=== PATIENT | male | born 1930 | race Caucasian/White ===

== ENCOUNTER 2018-01-27 16:20 | Inpatient (IN) | payer OTHER ==
--- NOTE | 2018-01-27 16:35 | EDPHY ---
H & P Stated Complaint: r leg swelling/amputated toe/now wih ?cellulitis/fever Time Seen by Provider: 01/27/18 16:35 HPI/ROS: CHIEF COMPLAINT: Fever, generalized weakness HISTORY OF PRESENT ILLNESS: The patient presents to the ED with a 2 day history of fever and generalized weakness. The patient is approximately 2 weeks status post right 5th toe resection. The patient reportedly been on oral antibiotics up until a week ago. The patient denies any cough, abdominal pain or dysuria. The patient reports that he has had some chronic erythema surrounding his surgical site however does not note increasing erythema over the past day. The patient denies any recent medication changes. The patient does report allergies to amoxicillin and Keflex. REVIEW OF SYSTEMS: A comprehensive 10 point review of systems is otherwise negative aside from elements mentioned in the history of present illness. Source: Patient - Personal History Current Tetanus Diphtheria and Acellular Pertussis (TDAP): Yes - Medical/Surgical History Hx Asthma: No Hx Chronic Respiratory Disease: No Hx Diabetes: No Hx Cardiac Disease: No Hx Renal Disease: No Hx Cirrhosis: No Hx Alcoholism: No Hx HIV/AIDS: No Hx Splenectomy or Spleen Trauma: No Other PMH: r 5th toe amputation - Social History Smoking Status: Former smoker - Physical Exam Exam: General Appearance: Alert, no distress Eyes: Pupils equal and round no pallor or injection ENT, Mouth: Mucous membranes moist Respiratory: There are no retractions, lungs are clear to auscultation Cardiovascular: Regular rate and rhythm Gastrointestinal: Abdomen is soft and nontender, no masses, bowel sounds normal Neurological: A&O, normal motor function, normal sensory exam, normal cranial nerves Skin: Warm and dry, no rashes Musculoskeletal: Neck is supple nontender Extremities: Wound VAC to right lower extremity, mild surrounding erythema, no fluctuance appreciated Psychiatric: Patient is oriented X 3, there is no agitation Constitutional: Initial Vital Signs Temperature (C) 39 C H 01/27/18 16:23 Heart Rate 104 H 01/27/18 16:23 Respiratory Rate 18 01/27/18 16:23 Blood Pressure 127/63 H 01/27/18 16:23 O2 Sat (%) 91 L 01/27/18 16:23 O2 Delivery Mode Room Air Allergies/Adverse Reactions: amoxicillin Allergy (Verified 01/27/18 17:35) Other-Enter Comments cephalexin Allergy (Verified 01/27/18 17:35) Rash Home Medications: Medication Instructions Recorded Chlorthalidone [Chlorthalidone 25 25 mg PO DAILY 01/27/18 mg (*)] Simvastatin 20 mg PO DAILY 01/27/18 Medical Decision Making - Diagnostics Imaging Results: Imaging Impressions Chest X-Ray 01/27/18 16:59 Impression: 1. Suspicious for a mediastinal mass. Recommend chest CT. 2. No pneumonia. ED Course/Re-evaluation: The patient presents to the ED with a fever to 39 degrees. The patient's surgical wound was evaluated by his surgeon Dr. Alanis who feels it is stable and improving as expected. The patient does not have septic physiology. The patient does have a slight leukocytosis with a left shift. The patient's initial lactic acid is reassuring. Blood cultures x2 have been obtained. The patient will be admitted to the hospital and started on vancomycin. The patient will be admitted to the hospitalist service by Dr. Rangel. Chest x- ray and urinalysis currently pending. The patient is noted to have a slightly elevated creatinine of 1.9 from his baseline of 1.5. Patient did have an abnormality noted on his chest x-ray. Given his elevated creatinine a noncontrast CT scan was obtained which demonstrates a ascending aortic aneurysm. The patient has no complaints of chest pain. Further workup of this condition will be deferred to the admitting service. Differential Diagnosis: Differential diagnosis considered includes bacteremia, sepsis, urinary tract infection, pneumonia, drug reaction - Data Points Laboratory Results: Laboratory Results 01/27/18 16:40 01/27/18 16:40 01/27/18 01/27/18 01/27/18 16:40 16:40 16:40 WBC 10.61 10^3/uL H 10^3/uL (3.80-9.50) RBC 3.52 10^6/uL L 10^6/uL (4.40-6.38) Hgb 11.6 g/dL L g/dL (13.7-17.5) Hct 34.9 % L % (40.0-51.0) MCV 99.1 fL fL (81.5-99.8) MCH 33.0 pg pg (27.9-34.1) MCHC 33.2 g/dL g/dL (32.4-36.7) RDW 13.6 % % (11.5-15.2) Plt Count 352 10^3/uL 10^3/uL (150-400) MPV 8.7 fL fL (8.7-11.7) Neut % (Auto) 81.6 % H % (39.3-74.2) Lymph % (Auto) 5.7 % L % (15.0-45.0) [place] % (Auto) 12.1 % % (4.5-13.0) Eos % (Auto) 0.0 % L % (0.6-7.6) Baso % (Auto) 0.3 % % (0.3-1.7) Nucleat RBC Rel Count 0.0 % % (0.0-0.2) Absolute Neuts (auto) 8.66 10^3/uL H 10^3/uL (1.70-6.50) Absolute Lymphs (auto) 0.61 10^3/uL L 10^3/uL (1.00-3.00) Absolute Monos (auto) 1.28 10^3/uL H 10^3/uL (0.30-0.80) Absolute Eos (auto) 0.00 10^3/uL L 10^3/uL (0.03-0.40) Absolute Basos (auto) 0.03 10^3/uL 10^3/uL (0.02-0.10) Absolute Nucleated RBC 0.00 10^3/uL 10^3/uL (0-0.01) Immature Gran % 0.3 % % (0.0-1.1) Immature Gran # 0.03 10^3/uL 10^3/uL (0.00-0.10) VBG Lactic Acid 1.4 mmol/L mmol/L (0.7-2.1) Sodium 129 mEq/L L mEq/L (135-145) Potassium 3.5 mEq/L mEq/L (3.3-5.0) Chloride 94 mEq/L L mEq/L (97-110) Carbon Dioxide 26 mEq/l mEq/l (22-31) Anion Gap 9 mEq/L mEq/L (8-16) BUN 33 mg/dL H mg/dL (7-23) Creatinine 1.9 mg/dL H mg/dL (0.7-1.3) Estimated GFR 34 Glucose 107 mg/dL H mg/dL (70-100) Calcium 8.4 mg/dL L mg/dL (8.5-10.4) Medications Given: Vancomycin/Sodium Chloride (Vancomycin 1 Gm (Premix)) 250 mls @ 250 mls/hr IV EDNOW ONE PRN Reason: Protocol Stop: 01/27/18 18:06 Last Admin: 01/27/18 17:30 Dose: 250 mls Departure - Departure Disposition: [facility] Inpatient Acute Clinical Impression: Febrile illness, acute, Cellulitis of right foot Condition: Good
[2018-01-27 16:50] LABS: PLATELET COUNT 352 10^3/uL (150-400)
[2018-01-27] MEDS ORDERED: VANCOMYCIN HCL/NORMAL SALINE 250 ML IV ONE (17:07)
[2018-01-27] MEDS ORDERED: ONDANSETRON 4 MG/2 ML VIAL IVP PRN (18:20)
[2018-01-27] MEDS ORDERED: ONDANSETRON DISINTEGRATING 4 MG TAB PO PRN (18:20)
[2018-01-27] MEDS: ACETAMINOPHEN 325 MG TAB PO PRN (19:52)
[2018-01-27] MEDS: NS 1,000 ML IV SCH (19:52)
[2018-01-27] MEDS ORDERED: levOFLOXACIN 500 MG/DEXTROSE 100 ML IV ONE (20:44)
--- NOTE | 2018-01-27 23:57 | GHP ---
[f rep st] HISTORY AND PHYSICAL DATE OF ADMISSION: 01/27/2018 CHIEF COMPLAINT: Fevers. HISTORY OF PRESENT ILLNESS: The patient is a pleasant 87-year-old gentleman with a past medical hist ory of hypertension, hyperlipidemia, who was recently in the hospital after having a right 5th toe am putation. He had completed antibiotics approximately 1 week ago after his amputation, and over the p ast few days started noticing fevers. He denies any other physical complaints such as productive cou gh. No abdominal complaints. No diarrhea. In the emergency room, it was noted that he had a temper ature of 39.0 degrees Celsius. He is being admitted for further evaluation and monitoring. Blood cu ltures were obtained in the emergency room. Patient received vancomycin. I reviewed the case after his urinalysis came back as well with Dr. Villavicencio, and we added Levaquin at that time as there was 10-1 5 WBC seen, although the patient denies any complaints of dysuria or malodorous urine. PAST MEDICAL HISTORY: 1. Hypertension. 2. Hyperlipidemia. PAST SURGICAL HISTORY: Recent right 5th toe amputation. MEDICATIONS: 1. Chlorthalidone. 2. Simvastatin. ALLERGIES: 1. Amoxicillin, which causes a rash. 2. Cephalexin, which also causes a rash. FAMILY HISTORY: Mother and Father are both . Patient is uncertain as to the cause of their . SOCIAL HISTORY: Patient is currently and has children. He is a nonsmoker. He smoked in the past but quit many years ago. REVIEW OF SYSTEMS: CONSTITUTIONAL: Positive for subjective fevers. ENT: No recent upper respirato ry illnesses. CARDIOVASCULAR: No complaints of chest pains, palpitations, or syncopal episodes. RE SPIRATORY: No complaints of shortness of breath or productive cough. GI: No focal abdominal pains, nausea, vomiting, diarrhea, or constipation. : No reports of any difficulty with urination. No burning with urination or malodorous urine. NEUROLOGIC: No complaints of any headaches or focal wea kness. HEMATOLOGIC: No history of any deep vein thrombosis or pulmonary embolism. PSYCHIATRIC: No history of anxiety or depression. ENDOCRINE: No heat intolerance or polyuria. SKIN: No new skin rashes but has had chronic lower extremity wounds managed in the wound care clinic. MUSCULOSKELETAL: No focal joint pains or swelling. PHYSICAL EXAM: VITAL SIGNS: Temperature 39.0, blood pressure 127/63, heart rate 104, respirations 1 8, satting 91% on room air. GENERAL: Patient appears comfortable, resting comfortably, arousable, c onversant, no acute distress. HEENT: Extraocular movements intact. No scleral icterus is noted. N MAT: Supple. No thyroid enlargement appreciated. CHEST: Clear on auscultation. No crackles or wh eezing. HEART: Regular. No murmurs noted. ABDOMEN: Soft, nontender, nondistended. No suprapubic tenderness appreciated. : No Pate catheter in place. EXTREMITIES: Wound VAC in place on right foot. There are superficial abrasions on the left lateral ankle, which do not appear acutely infect ed. In the right foot, it is mildly edematous and erythematous and warm to touch on the dorsal aspec t of the foot. NEUROLOGIC: Cranial nerves 2 through 12 appear grossly intact with 5/5 strength in e xtremities. LABS: White blood cell count 10, hemoglobin 11, platelets 352. Sodium 129, potassium 3.5, chloride 94, bicarb 26, BUN 33, creatinine 1.9, glucose of 107. Lactic acid 1.4. UA shows negative nitrite, negative leukocyte esterase, 10-[address] did not show any acute infectious process. There is a 5.3 cm ascending aortic aneurysm noted. ASSESSMENT AND PLAN: 1. Fever: Clinically suspect the source of the fever is likely related to soft-tissue skin infectio n related to the right lower extremity. His right foot is warm to touch, mildly erythematous, and sw ollen as well. The patient has been given a dose of vancomycin in the emergency room, which I have c ontinued as well. We did add Levaquin. Infectious Disease consultation has also been recommended fo r a second opinion on antibiotic selection as well as any additional recommendations on further anisa p. Otherwise, await blood cultures, which were taken in the emergency room. 2. Acute kidney injury: Suspect hypovolemia related in the setting of the fevers. Normal saline cooper s been started. I recommend holding his chlorthalidone at this time as well. His most recent creati nine was 1.3, just 10 days ago here in the hospital. 3. Hyponatremia: Likely hypovolemia related as well as related to chlorthalidone. Perhaps consider ing other antihypertensives may be reasonable if necessary to minimize the risk of electrolyte abnorm alities. 4. Aneurysm: On CT imaging, the patient was found to have an ascending aortic aneurysm measured at 5.3 cm. This was a new finding for the patient. He had no knowledge of this being present. We disc ussed that this would need ongoing followup and recommendations. I think this can be done either as an outpatient or inpatient as I would not expect any immediate intervention in light of concurrent in fectious process. 5. Hypertension: Will hold chlorthalidone for now. 6. Hyperlipidemia: Will continue simvastatin. 7. Deep venous thrombosis prophylaxis: Lovenox. 8. Disposition: I will admit inpatient under observation setting for now pending further evaluation . /[id number]/MODL
[2018-01-28 05:29] LABS: PLATELET COUNT 298 10^3/uL (150-400)
[2018-01-28] MEDS: ATORVASTATIN CALCIUM 10 MG TAB PO SCH (08:31)
[2018-01-28] MEDS ORDERED: ENOXAPARIN 40 MG/0.4 ML SYR SC SCH (09:00)
[2018-01-28] MEDS ORDERED: levOFLOXACIN 250 MG/DEXTROSE 50 ML IV SCH (09:00)
--- NOTE | 2018-01-28 09:50 | ASMTCASEMG ---
Living Arrangements What is your living Answers: With Spouse arrangement? Who do you live with? Type Of Residence What kind of residence do Answers: House you live in? Discharge Plan Comments Coordination Status Comments Notes: Pt is a 87 y/o man admitted for febrile illness and presumed bacteremia. Pt recently had a right 5th toe amputation. ID and wound care is consulting. PT has been ordered and awaiting recommendations. Needs are TBD at this time. CM to follow. Plan: TBD Date Signed: 01/28/2018 09:49 AM Electronically Signed By:MAYRA Arias
[2018-01-28] MEDS: NS 1,000 ML IV SCH (10:37)
[2018-01-28] MEDS ORDERED: PENICILLIN POTASSIUM IV SCH (14:00)
[2018-01-28] MEDS ORDERED: D5W IV SCH (14:00)
--- NOTE | 2018-01-28 14:11 | GCON ---
[f rep st] CONSULTATION DATE OF CONSULTATION: 01/28/2018 CHIEF COMPLAINT: Fevers. HISTORY OF PRESENT ILLNESS: This is an 87-year-old male, well known to me from the wound care clinic . Briefly, he presented with a foul-smelling right lower extremity wound on the 5th metatarsal. He was subsequently taken to the operating room on the where I removed the right 5th toe as well as a significant portion of the right 5th metatarsal. Since that time I have seen him in the wound car e clinic once. The wound was healing appropriately, had decent granulation tissue, and the patient w as doing well. He was subsequently seen in the wound care clinic yesterday and evaluated by my partn er. The wound was warm. The patient was doing well. Some labs were sent as a general precautionary measure. In the interim, the patient developed fairly high fevers and was subsequently deferred to the emergency department. In the emergency department, it was found that he had positive blood cultu res. His white blood cell count was minimally elevated at 10, and the decision was made to admit the patient for IV antibiotics. On my examination of the patient today, he denies having any pain. He states that he feels better now that the fevers have abated. He wonders how long he will be in the ospital as he has "work to do." PAST MEDICAL HISTORY: Hypertension and hyperlipidemia. PAST SURGICAL HISTORY: Recent right 5th toe amputation. CURRENT MEDICATIONS: Include chlorthalidone and simvastatin. ALLERGIES: To amoxicillin and cephalexin. FAMILY HISTORY: Noncontributory. SOCIAL HISTORY: He continues to work. He is a previous smoker. Denies illicit drug use. PHYSICAL EXAMINATION: VITAL SIGNS: Temperature 36.6, blood pressure 105/65, heart rate 64, and he i s 96% on room air. CONSTITUTIONAL: He is in no apparent distress and appears comfortable. HEENT: Eyes: His pupils are equal, round, and reactive to light and accommodation. His extraocular movemen ts are intact. Ears, nose, mouth, throat: He has moist mucous membranes. His hearing is normal. H e has normal dentition. CARDIOVASCULAR: He has a regular rate and rhythm without any murmurs. RESP IRATORY: He has no respiratory distress, rales or rhonchi, and he is otherwise clear to auscultation . GI: His abdomen is soft, nondistended, nontender. SKIN: Warm. His right 5th toe is erythematou s and warm. It is nontender to palpation. He has palpable DP and PT pulses. The wound VAC is in pl o[place]. MUSCULOSKELETAL: Full strength. No tenderness. Normal joint range of motion. NEUROLOGIC: H e is alert and oriented x3. His cranial nerves 2-12 are intact. No weakness. No numbness. PSYCH: He is interacting appropriately. He is not anxious or encephalopathic. LYMPHATIC/HEMATOLOGIC/IMMUN OLOGIC: He has no cervical groin or supraclavicular lymphadenopathy appreciated. LABS: His white blood cell count has come down from 10.6 to 6.7. His H and H are stable at 11 and 3 5. His platelets are normal at 298. He does have positive blood cultures growing group A strep. Th is is consistent with the cultures taken intraoperatively. ASSESSMENT/PLAN: 87-year-old male with bacteremia likely secondary to a right foot wound. The patie nt has been started on intravenous antibiotics, and they appear to be working as his fevers have abat ed and his foot appears better than it did yesterday. I feel that given his positive margin as well as his bacteremia, he requires take back to the operating room for revision. I discussed this with t erika patient today. Although he is somewhat disheartened to learn that he has to go back to the operat ing room, he understands that in order to get source control, this is appropriate. In the meantime, he will continue intravenous antibiotics for a minimum of 2 weeks. Will plan to take him back within the next day or so for revision amputation. /[id number]/MODL
--- NOTE | 2018-01-28 14:42 | GCON ---
[f rep st] CONSULTATION DATE OF CONSULTATION: 01/28/2018 REFERRING PHYSICIAN: Emile Lim MD REASON FOR CONSULTATION: Bacteremia. HPI: An 87-year-old active male whose problems date back to August of 2017, when he had some special [place] shoes made at a neuropathy clinic in [place]. He wore the shoes without socks on and his left and right foot got rubbed. The right foot wound became chronic. Patient was initially seen by Dr. Bruce, but subsequently was evaluated by [facility] on 01/06/2018. The patient was noted to have exposed bone consistent with clinical osteomyelitis. The patient was subsequently taken to the operating room 01/17/2018, and underwent a right 5th toe and partial metatarsal resection. The patient did receive antibiotics for a short period postoperatively, but he completed the antibiotics last week, unknown type. The patient was doing well until January 26 when he felt increasing malaise and slept all afternoon. [facility] and subsequently developed a T to 103. He subsequently presented to the emergency room and was found to have right lower extremity cellulitis. One of 2 positive blood cultures for group A strep and a mild leukocytosis. Patient was started on levofloxacin and vancomycin and today feels some clinical improvement. He has no pain in his lower extremities due to chronic lower extremity neuropathy. PAST MEDICAL AND SURGICAL HISTORY: High BP, neuropathy, hyperlipidemia and transmetatarsal resection as above. CURRENT MEDICATIONS: Tylenol, [place], Lipitor 10 mg p.o. at bedtime, Lovenox, morphine. He received levofloxacin 750 mg x1 and vancomycin IV. ALLERGIES: The patient has nausea and vomiting to Augmentin, and Keflex he developed a rash of his lower extremities, query vasculitis. SOCIAL HISTORY: Patient is . He continues to actively work. He previously is from [place]. 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 His son lives here in town. Remote tobacco. Last international travel was last year to [facility]. FAMILY HISTORY: Reviewed and noncontributory. PHYSICAL EXAM: VITAL SIGNS: T-max is 39, T current 36.7, BP 105/65, HR 67, RR 16, saturation 96% on room air. GENERAL: This is a pleasant male sitting up in bed. No acute distress HEENT: Moist mucous membranes. No oral ulcerations or exudate. NECK: Supple. CARDIOVASCULAR: Regular rate and rhythm. No murmurs. CHEST: Clear to auscultation bilaterally. ABDOMEN: Soft, nontender. Bowel sounds are present. EXTREMITIES: His right lower extremity revealed a wound VAC in place lateral foot with erythema and swelling on the dorsum of his foot extending to the mid calf. He also had mild warmth. His pulses were 2+ bilaterally. His range of motion of his ankle was intact. NEUROLOGICAL: He was alert and oriented x4. Moving all 4 extremities equally. LABORATORY: White count on admission was 10.6 and today was 6.7, hematocrit 34 , platelets of 298, 64% neutrophils, 12% lymphocytes. Sodium 129 and today 138 , creatinine 1.7. Blood cultures collected 01/27 07/02 group A strep. Foot tissue from 01/17 grew MSSA, group A strep, Enterobacter, Klebsiella, group A strep and Proteus. Bone biopsy from the operating room 01/17/2018, showed 2 samples with viable margins and 1 margin described as the proximal 5th metatarsal with osteomyelitis extending to an unoriented margin. ASSESSMENT AND PLAN: This is an 87-year-old male with chronic right foot osteomyelitis, who underwent resection of his 5th metatarsal 1 week ago, who subsequently developed fever and chills and cellulitis of his right lower extremity and subsequently was found to have bacteremia with group A strep. 1. Group a strep bacteremia. No peripheral stigmata of endocarditis including no murmur. Would only consider echocardiogram if persistent bacteremia. Suspect source right foot wound s/p 5th partial metatarsal amputation 2. Right lower extremity cellulitis and right 5th osteomyelitis 3. Renal insufficiency Recommendations 1. Discussed with patient his reaction to Augmentin is a side effect and not allergy, and patient expressed a willingness to try IV penicillin. Discussed duration of therapy, at least 2 weeks, depending on operative findings. 2. Discussed the risks and benefits of PICC line placement. Will place after blood cultures cleared 48 hr. Repeat blood cultures tomorrow Thank you. We will continue to see this patient on a daily basis. /[id number]/MODL MTDD
[2018-01-28] MEDS: PENICILLIN POTASSIUM IV SCH ×2 (15:45→20:24)
[2018-01-28] MEDS: D5W IV SCH ×2 (15:45→20:24)
--- NOTE | 2018-01-28 15:56 | CPEKG ---
Heart Rate: 70 RR Interval: 857 P-R Interval: 200 QRSD Interval: 82 QT Interval: 365 QTC Interval: 394 P [place]ron[place]: -18 QRS [place]: 61 T Wave [place]: -31 EKG Severity - ABNORMAL ECG - EKG Impression: SINUS RHYTHM Electronically Signed By: Amarilys Saez 28-Jan-2018 16:31:29
--- NOTE | 2018-01-28 17:00 | HOSPPROG ---
Hospitalist Progress Note Assessment/Plan: Assessment: 87-year-old male presents with group a strep bacteremia secondary to right ft wound and cellulitis Plan: 1. Group A strep bacteremia. Present on admission, right lower extremity wound is the source -appreciate Infectious Disease consultation by Dr. Darling, she has recommended IV penicillin for 2 weeks beyond blood culture clearance -will repeat blood cultures postoperatively and place PICC line once his demonstrate clearance 2. Cellulitis. Present on admission, new problem this provider, further workup indicated. right lower extremity, around right lower extremity wound which is secondary to neuropathy and likely pressure injury -status post vancomycin levofloxacin in the emergency department, continue on single agent penicillin given the likely causative agent is group a strep -discussed with Dr. Alanis, he suspects the patient has underlying bony involvement and he recommends exploratory surgery, patient will be NPO after midnight -x-ray the area demonstrates no soft tissue gas 3. Pressure injury. Present on admission, right lower extremity, nonhealing in the outpatient setting, currently has a wound VAC at but continues to have adjacent cellulitis, now bacteremia, potentially osteomyelitis underneath -surgical exploration by Dr. Alanis tomorrow -ongoing wound care 4. Neuropathy. Chronic, likely cause of above 5. Hypertension. Chronic, hold chlorthalidone given acute kidney injury 6. Acute kidney injury on chronic kidney disease stage 3. Reviewed outside records from 01/17/18, demonstrating initial serum creatinine level 1.3, elevated on this presentation most likely secondary to hypovolemia in the setting of infection -continue IV normal saline -repeat serum creatinine level in a.m. -monitor urine output 7. Acute hyponatremia. Presenting serum sodium level 129 most likely secondary to hypovolemia with concomitant acute kidney injury, continue normal saline and monitor 8. PVCs. Present on EKG, personally interpreted, with other supraventricular or non sinus complex -monitor on telemetry as the patient has no known history of AFib, and this may impact overall care 9. Abdominal aortic aneurysm. 5.3 cm on imaging, will require outpatient surveillance, not currently symptomatic Diet. Regular, NPO after midnight Prophylaxis. High risk patient, SCDs, hold pharmacologic given surgery tomorrow Code. Full Disposition. Anticipated discharge uncertain this time, upgraded to inpatient admission status reasonable medical necessity given that his anticipated length stay is greater than 48 hr for a new diagnosis of bacteremia with concomitant cellulitis, pressure injury, acute kidney injury, requiring surgical intervention. Subjective: Patient denies any pain in his foot Objective: Vital Signs Temp Pulse Resp BP Pulse Ox 36.7 C 62 16 108/70 97 01/28/18 16:00 01/28/18 16:00 01/28/18 16:00 01/28/18 16:00 01/28/18 16:00 - Physical Exam Constitutional: no apparent distress, appears nourished, not in pain, No uncomfortable Cardiovascular: regular rate and rhythym, no murmur, rub, or gallop, No edema Respiratory: no respiratory distress, no rales or rhonchi, clear to auscultation Gastrointestinal: normoactive bowel sounds, soft, non-tender abdomen, no palpable masses Skin: other (Blanchable erythema lateral aspect right lower extremity around his wound which has a VAC in place, healing small ulcerations on the posterior aspect of his right calf, posterior aspect left heel without any surrounding induration or fluctuance) Neurologic: AAOx3, No sensation intact bilaterally (Impaired in right lower extremity distally), No weakness (Motor strength 5/5 bilaterally) Psychiatric: interacting appropriately, not anxious, not encephalopathic, thought process linear ICD10 Worksheet Patient Problems: Problems Problem Status Onset Cellulitis of right foot Acute Febrile illness, acute Acute
[2018-01-28] MEDS ORDERED: VANCOMYCIN HCL/NORMAL SALINE 250 ML IV SCH (17:30)
[2018-01-29] MEDS: D5W IV SCH ×4 (02:04→21:03)
[2018-01-29] MEDS: PENICILLIN POTASSIUM IV SCH ×4 (02:04→21:03)
[2018-01-29 05:15] LABS: PLATELET COUNT 317 10^3/uL (150-400)
[2018-01-29] MEDS: ATORVASTATIN CALCIUM 10 MG TAB PO SCH (08:24)
--- NOTE | 2018-01-29 11:18 | PCMIDPN ---
Assessment/Plan: Assessment/Plan: * Group A strep bacteremia associated with right foot osteomyelitis status post amputation: Cellulitic changes have resolved over right lateral foot. Plans for revision of amputation based on positive bone margins later today. Planning 2 weeks of penicillin therapy by IV route provided all osteomyelitis is excised. Repeat blood cultures obtained this morning to assess for clearing of bacteremia. Plan PICC line once bacteremia documented as cleared. Patient is tolerating penicillin well to date. Clinical findings and plan of care discussed with patient. 01/29/18 13:18 01/29/18 13:20 Subjective: 87 y/o M, sitting in his chair reading, seen in follow-up for osteomyelitis of right foot with associated group A strep bacteremia. When asked how he is feeling he states, Im fine. Dr. Ocampo informed pt of his blood cultures positive for Group A Streptococcus and plan for 2 week course of IV penicillin abx. Denies associated itching, rash, or diarrhea. When asked about his allergy to Keflex he said he suddenly got a rash all over the lower half of his body. He was seen by Dr. Bruce at [facility] who referred him to a correction officer supervisor. Pt notes that the correction officer supervisor did not take cultures and dx him with vasculitis. Subsequently, he got sores on both lower legs. He still has two open wounds. One on his L foot is almost healed. Prior to surgery he notes that his right foot was erythematous and hot to touch which has now improved. I, Donna Mullen, am scribing for, and in the presence of, Dr. Lupillo Ocampo. I, Dr. Lupillo Ocampo, personally performed the services described in this documentation, as scribed by Donna Mullen in my presence, and it is both accurate and complete. Objective: Vital Signs Temp Pulse Resp BP Pulse Ox 36.5 C 68 23 H 103/66 94 01/29/18 08:37 01/29/18 08:37 01/29/18 08:37 01/29/18 08:37 01/29/18 08:37 Laboratory Results 01/29/18 05:00 01/29/18 05:00 01/28/18 01/29/18 01/30/18 05:59 05:59 05:59 Intake Total 0 Output Total 800 375 Balance -800 -375 penicillin 2million units IV q6 #1 Blood cultures 01/27/2018 1/2 sets group A Streptococcus - Physical Exam General Appearance: alert, no apparent distress EENT: No scleral icterus, No thrush Respiratory: lungs clear Cardiac/Chest: regular rate, rhythm, No systolic murmur Extremities: other (R lateral foot with extensive granulation tissue present without purulent discharge surrounding; erythema resolving. R index finger small healing wound with mild edema. No stigmata of endocarditis. ) Abdomen: non-tender, No distended ICD10 Worksheet Patient Problems: Problems Problem Status Onset Cellulitis of right foot Acute Febrile illness, acute Acute
[2018-01-29] MEDS: NS 1,000 ML IV SCH (16:18)
--- NOTE | 2018-01-29 16:29 | HOSPPROG ---
Hospitalist Progress Note Assessment/Plan: Assessment: 87-year-old male presents with group a strep bacteremia secondary to right ft wound and cellulitis Plan: 1. Group A strep bacteremia. Present on admission, right lower extremity wound is the source -appreciate Infectious Disease consultation by Dr. Ocampo, he has recommended IV penicillin for 2 weeks beyond blood culture clearance -currently tolerating PCN w/o allergy -will repeat blood cultures postoperatively and place PICC line once his demonstrate clearance 2. Cellulitis. Present on admission, right lower extremity, around right lower extremity wound which is secondary to neuropathy and likely pressure injury -Abx as above 3. Pressure injury. Present on admission, right lower extremity, nonhealing in the outpatient setting, potentially osteomyelitis underneath -surgical exploration by Dr. Alanis tomorrow -ongoing wound care 4. Neuropathy. Chronic, likely cause of above 5. Hypertension. Chronic, hold chlorthalidone given acute kidney injury 6. Acute kidney injury on chronic kidney disease stage 3. Reviewed outside records from 01/17/18, demonstrating initial serum creatinine level 1.3, elevated on this presentation most likely secondary to hypovolemia in the setting of infection -continue IV normal saline in AM -repeat serum creatinine level in a.m. -monitor urine output 7. Acute hyponatremia. Presenting serum sodium level 129 most likely secondary to hypovolemia with concomitant acute kidney injury, continue normal saline and monitor, resolved 8. PVCs. Present on EKG -monitor on telemetry as the patient has no known history of AFib, and this may impact overall care 9. Abdominal aortic aneurysm. 5.3 cm on imaging, will require outpatient surveillance, not currently symptomatic 10. Edema. Unilateral RLE, acute, new problem, further w/u indicated. At risk for DVT, get LE US 11. Suspected asymptomatic bacturia. E. faecalis, UA unremarkable, no sx Diet. Regular, NPO after midnight Prophylaxis. High risk patient, SCDs, hold pharmacologic given surgery tomorrow Code. Full Disposition. ADD uncertain, blood cx s/p surgery Subjective: patient reports no urinary sx, no foot pain Objective: Vital Signs Temp Pulse Resp BP Pulse Ox 36.4 C 71 19 100/70 96 01/29/18 11:29 01/29/18 11:29 01/29/18 11:29 01/29/18 11:29 01/29/18 11:29 Laboratory Results 01/29/18 05:00 01/29/18 05:00 01/28/18 01/29/18 01/30/18 05:59 05:59 05:59 Intake Total 0 Output Total 800 375 Balance -800 -375 - Physical Exam Constitutional: no apparent distress, appears nourished, not in pain, No uncomfortable Cardiovascular: edema (RLE 1+), other (ectopic beats), No systolic murmur, No tachycardia Respiratory: no respiratory distress, no rales or rhonchi, clear to auscultation Gastrointestinal: normoactive bowel sounds, soft, non-tender abdomen, No guarding, No distension Skin: other (blanchable, confluent, mid R foot distally w/ lateral wound bed) Neurologic: AAOx3, No sensation intact bilaterally (impaired bilat LE), No weakness Psychiatric: interacting appropriately, not anxious, not encephalopathic, thought process linear ICD10 Worksheet Patient Problems: Problems Problem Status Onset Febrile illness, acute Acute Cellulitis of right foot Acute
[2018-01-30] MEDS: PENICILLIN POTASSIUM IV SCH ×4 (02:16→21:39)
[2018-01-30] MEDS: D5W IV SCH ×4 (02:16→21:39)
[2018-01-30] MEDS: NS 1,000 ML IV SCH (08:51)
[2018-01-30] MEDS: ATORVASTATIN CALCIUM 10 MG TAB PO SCH (08:52)
--- NOTE | 2018-01-30 08:57 | PDHPUP ---
History & Physical Update H&P update statement: This history and physical update is based on an assessment of the patient which was completed after admission or registration (within 24 hours), but prior to the surgery/procedure. H&P update: H&P reviewed & patient examined, no change in patient's condition since H&P completed
--- NOTE | 2018-01-30 10:00 | PDANEPAE ---
ANE History of Present Illness revision of amputation, R 5th metatarsal ANE Past Medical History - Cardiovascular History Hx Hypertension: Yes Hx Arrhythmias: No Hx Chest Pain: No Hx Coronary Artery / Peripheral Vascular Disease: No Hx CHF / Valvular Disease: No Hx Palpitations: No Cardiovascular History Comment: ascending aortic aneurysm (5.3 cm). HPL - Pulmonary History Hx COPD: No Hx Asthma/Reactive Airway Disease: No Hx Recent Upper Respiratory Infection: No Hx Oxygen in Use at Home: No Hx Sleep Apnea: No Sleep Apnea Screening Result - Last Documented: Positive - Neurologic History Hx Cerebrovascular Accident: No Hx Seizures: No Hx Dementia: No - Endocrine History Hx Diabetes: No Hypothyroid: No Hyperthyroid: No - Renal History Hx Renal Disorders: No Renal History Comment: prostatectomy. CKD III - Liver History Hx Hepatic Disorders: No - Neurological & Psychiatric Hx Hx Neurological and Psychiatric Disorders: No - Cancer History Hx Cancer: Yes Cancer History Comment: urethral cancer - Congenital Disorder History Hx Congenital Disorders: No - GI History GERD: no Hx Gastrointestinal Disorders: No - Other Health History Other Health History: right toe. wounds to both feet pt attending wound care clinic. anemia (Hct: 32) - Chronic Pain History Chronic Pain: No - Surgical History Prior Surgeries: right hip and shoulder replaced. R 5th metatarsal amputation ANE Review of Systems Review of Systems: - Exercise capacity METS (RN): 3 METS ANE Patient History - Allergies Allergies/Adverse Reactions: amoxicillin Allergy (Verified 01/27/18 17:35) Other-Enter Comments cephalexin Allergy (Verified 01/27/18 17:35) Rash - Home Medications Home Medications: Chlorthalidone [Chlorthalidone 25 mg (*)] 25 mg PO DAILY 01/27/18 [Last Taken ] Simvastatin 20 mg PO DAILY 01/27/18 [Last Taken 01/27/18] - NPO status NPO Since - Liquids (Date): 01/30/18 NPO Since - Liquids (Time): 00:01 NPO Since - Solids (Date): 01/29/18 NPO Since - Solids (Time): 19:00 - Smoking Hx Smoking Status: Former smoker - Family Anes Hx Family Hx Anesthesia Complications: none ANE Labs/Vital Signs - Labs Result Diagrams: 01/29/18 05:00 01/30/18 04:53 - Vital Signs Blood Pressure: 129/78 Heart Rate: 64 Respiratory Rate: 19 O2 Sat (%): 95 Height: 177.8 cm Weight: 92.986 kg ANE Physical Exam - Airway Neck exam: decreased ROM Mallampati Score: Class 1 Mouth exam: normal dental/mouth exam (Upper front crowns) - Pulmonary Pulmonary: clear to auscultation - Cardiovascular Cardiovascular: regular rate and rhythym - ASA Status ASA Status: III ANE Anesthesia Plan Anesthesia Plan: GA w LMA
--- NOTE | 2018-01-30 10:09 | PCMIDPN ---
Assessment/Plan: 1. Group a strep bacteremia secondary to right foot osteomyelitis status post recent right 5th toe amputation and partial metatarsal resection with positive margins: To have amputation revised today; hopefully all diseased bone will be resected. Previous toe cultures were polymicrobial in nature, with Klebsiella, Proteus, Enterobacter, methicillin-susceptible Staph aureus, and group a strep. Presently, we are targeting only the group a strep in his blood culture. Patient does have a fairly significant component of cellulitis of the foot; if this does not improve, consider broadening antibiotics. Patient has multiple prosthetic joints, including 2 knees, right shoulder and right hip---he has no pain at the sites whatsoever. PICC line to be placed likely in the next 48 hr if cultures from yesterday remain negative. Subjective: Frustrated about being hospitalized. No diarrhea. Has no pain in his feet given significant underlying neuropathy. Multiple prosthetic joints, none of which are painful or swollen. Tolerating the penicillin without any issues. Objective: Penicillin 2 million units IV q.6 hours day 2 No fevers Vital Signs Temp Pulse Resp BP Pulse Ox 36.6 C 64 19 129/78 H 95 01/30/18 09:18 01/30/18 10:02 01/30/18 10:02 01/30/18 10:02 01/30/18 10:02 Laboratory Results 01/29/18 05:00 01/30/18 04:53 01/29/18 01/30/18 01/31/18 05:59 05:59 05:59 Intake Total 2050 200 Output Total 800 375 Balance -800 1675 200 Blood cultures x2 from January 29 pending Previous cultures from January 0207/04 bottles group a strep Previous toe cultures from January 17: Enterobacter, Klebsiella, group a strep, Proteus and methicillin-susceptible Staph aureus - Physical Exam General Appearance: other (Elderly male, sitting in chair no apparent distress) EENT: pharynx normal, No thrush Respiratory: lungs clear Cardiac/Chest: regular rate, rhythm, No systolic murmur Extremities: other (Right foot: Lateral aspect of foot with large open defect at previous amputation site. Dressing removed, which is saturated with somewhat foul-smelling pus. The 5th metatarsal that remains is visible. There is a fairly significant component of cellulitis around the operative site, with pinkish blanching erythema that extends to the dorsum of the foot and lateral aspect. There is accompanying edema. No pain. No bullae.) Abdomen: non-tender, soft Skin: No rash ICD10 Worksheet Patient Problems: Problems Problem Status Onset Cellulitis of right foot Acute Febrile illness, acute Acute
[2018-01-30] MEDS ORDERED: LR 1,000 ML IV ONE (10:27)
[2018-01-30] MEDS ORDERED: PROPOFOL 200 MG/20 ML VIAL ONE (10:55)
[2018-01-30] MEDS ORDERED: fentaNYL 100 MCG/2 ML INJ ONE (10:55)
[2018-01-30] MEDS ORDERED: DEXAMETHASONE 4 MG/ML VIAL ONE (10:59)
[2018-01-30] MEDS ORDERED: ONDANSETRON 4 MG/2 ML VIAL ONE (11:41)
[2018-01-30] MEDS ORDERED: ePHEDrine SULFATE 25 MG/5 ML SYR ONE (11:50)
[2018-01-30] MEDS ORDERED: NALOXONE HCL 0.4 MG/ML INJ IVP PRN (11:54)
[2018-01-30] MEDS ORDERED: fentaNYL 100 MCG/2 ML INJ IVP PRN (11:54)
[2018-01-30] MEDS ORDERED: ONDANSETRON 4 MG/2 ML VIAL IVP PRN (11:54)
--- NOTE | 2018-01-30 12:14 | POSTOPPROG ---
Post Op Note Date of Operation: 01/30/18 Surgeon: Oemr Alanis Anesthesiologist: Delroy Anesthesia: GET(General Endotracheal) Pre-op Diagnosis: Osteomyelitis Post-op Diagnosis: same Procedure: Revision Right 5th metatarsal Findings: addl 2.5cm met taken, 1cm 5th met remains. Inf/Abcess present in the surg proc area at time of surgery?: Yes Depth: Deep Incisional (Fascial) EBL: Minimal Specimen(s): R 5th metatarsal, blue ink albright proximal margin
--- NOTE | 2018-01-30 12:48 | GOP ---
[f rep st] OPERATIVE REPORT DATE OF OPERATION: 01/30/2018 SURGEON: Omer Alanis MD CLINICAL ASST: None. ANESTHESIA: General endotracheal. ANESTHESIOLOGIST: Sagar Potts MD. PREOPERATIVE DIAGNOSIS: Right foot osteomyelitis. POSTOPERATIVE DIAGNOSIS: Right foot osteomyelitis. PROCEDURE PERFORMED: Revision of fifth metatarsal amputation. FINDINGS: The majority of the wound bed was clean. There was good granulation tissue for the majori ty of the previous specimen. I took an additional 2.5 cm of the right fifth metatarsal, leaving appr oximately 1 cm proximally. SPECIMENS: Residual right fifth metatarsal proximal, margin inked. ESTIMATED BLOOD LOSS: 10 cc. DESCRIPTION OF PROCEDURE: The patient was greeted in the preoperative suite. Once again, risks, rocky efits, and alternatives were discussed. Consent was signed. He was then brought back to the operati ve suite and placed on the OR table in supine position. After all anesthesia machines including SCDs were on and functioning, [employer] timeout was performed. After successful inductio n of general anesthesia, the patient's right lower extremity was prepped and draped in typical steril e fashion. I commenced the procedure by extending my previous incision approximately 3 cm proximally . I carried this down. I dissected an additional 3 cm out of the remaining right fifth metatarsal a nd resected approximately 2.5 cm, leaving likely 1 cm of metatarsal at that site. The bone was remov ed and passed off. The proximal margin was inked. Hemostasis was achieved in the wound bed with riddhi ctrocautery. I removed the surrounding tissue and tendons down to the resection site. I then closed the overlying subcutaneous tissue and skin over the remaining bone. I then placed a black sponge in the area, covered it with drapes, and attached it to suction without any apparent leaks to the wound VAC. The patient tolerated the procedure well with no complications. DRAINS: None. /[id number]/MODL
--- NOTE | 2018-01-30 13:38 | WOCRNPDOC ---
WOCRN Advanced Assessment Note - Skin Integrity Problem, Advanced Assess Right Fifth Toe Dressing Type: Allevyn Life Exudate Amount: Scant Exudate Characteristic(s): Purulent Integumentary Issue Intervention: Visualized Under Dressing Jocelynn Wound Tissue: Macerated Wound Bed Constitution: Red/[place] - Non Granular Tissue (100%) Wound Edges: Thick Site Measurement - Head-to-Toe Length X Width X Depth (cm): 0.5x1x0.2 Skin Integrity Problem Comment: Area resembles a fissure on dorsal great toe. No drainage was able to be expressed but there was scant amount of thick yellow/ green drainage on dressing. Advised RN redress area. Marni RN in room for care. Left Anterior Ankle Scab Dressing Type: Open to Air Exudate Amount: None Jocelynn Wound Tissue: Erythema (reddish/purple), Non-blanching, Xerotic, Scarred Wound Bed Constitution: Scab Wound Edges: Epithelizing Site Measurement - Head-to-Toe Length X Width X Depth (cm): [id number] Skin Integrity Problem Comment: Dried out wound with scar tissue around edges where healing has already occured. Jocelynn wound is non blanching and resembles a DTPI. Unclear of etiology. Patient reports that is the way it has always looked. Moisten wound with silvasorb and cover with Allevyn life. Wound care will sign off. Left Lateral Foot Scab Dressing Type: Open to Air Exudate Amount: None Wound Bed Constitution: Scab Site Measurement - Head-to-Toe Length X Width X Depth (cm): 1x2.2xscab Skin Integrity Problem Comment: Dried out wound with scar tissue around edges where healing has already occured. Moisten with silvasorb and cover with Allevyn life. Wound care will sign off.
--- NOTE | 2018-01-30 13:39 | POSTANESTH ---
Post Anesthetic Evaluation Cardiovascular Status: Similar to Pre-Op Cond Respiratory Status: Normal, Stable Level of Consciousness/Mental Status: Can Participate in Eval Pain Control: Adequate, Prn Tx Ordered Nausea/Vomiting Control: Adequate, Prn Tx Ordered Complications Possibly Related to Anesthesia: None Noted
--- NOTE | 2018-01-30 14:24 | ASMTCMCOM ---
CM Note CM Note Notes: Pts case discussed w/ SARAH Grider. Pt had surgery today. Pt currently has a hospital wound vac attached. Pt has his own wound vac available to him to d/c with. PT has cleared pt to d/c home without any needs. CM available for changes. Plan: Independent Date Signed: 01/30/2018 02:23 PM Electronically Signed By:MAYRA Arias
--- NOTE | 2018-01-30 15:54 | HOSPPROG ---
Hospitalist Progress Note Assessment/Plan: Assessment: 87-year-old male presents with group a strep bacteremia secondary to right ft wound and cellulitis Plan: 1. Group A strep bacteremia. Present on admission, right lower extremity wound is the source -d/w Infectious Disease railroad design consultant Dr. Sánchez, she recommends IV penicillin for 2 weeks beyond blood culture clearance, current dosing appropriate per pharmacy -currently tolerating PCN w/o allergy -will repeat blood cultures postoperatively and place PICC line once he has demonstrated clearance 2. Cellulitis. Present on admission, right lower extremity, around right lower extremity wound which is secondary to neuropathy and likely pressure injury -Abx as above 3. Pressure injury. Present on admission, right lower extremity, nonhealing in the outpatient setting, potentially osteomyelitis underneath -surgical exploration by Dr. Alanis today -ongoing wound care, likely vac from OR 4. Neuropathy. Chronic, likely cause of above 5. Hypertension. Chronic, hold chlorthalidone given acute kidney injury 6. Acute kidney injury on chronic kidney disease stage 3. E elevated on this presentation most likely secondary to hypovolemia in the setting of infection -resolved 7. Acute hyponatremia. Presenting serum sodium level 129 most likely secondary to hypovolemia with concomitant acute kidney injury, resolved 8. PVCs. Present on EKG -monitor on telemetry as the patient has no known history of AFib, and this may impact overall care 9. Abdominal aortic aneurysm. 5.3 cm on imaging, will require outpatient surveillance, not currently symptomatic 10. Edema. Unilateral RLE, US neg for DVT 11. Suspected asymptomatic bacturia. E. faecalis, UA unremarkable, no sx Diet. NPO, then resume Prophylaxis. High risk patient, SCDs today, lovenox tomorrow Code. Full Disposition. ADD uncertain, blood cx s/p surgery Subjective: no pain in foot Objective: Vital Signs Temp Pulse Resp BP Pulse Ox 36.3 C 68 18 117/76 92 01/30/18 14:51 01/30/18 14:51 01/30/18 14:51 01/30/18 14:51 01/30/18 14:51 Laboratory Results 01/29/18 05:00 01/30/18 04:53 01/29/18 01/30/18 01/31/18 05:59 05:59 05:59 Intake Total 2050 700 Output Total 800 375 5 Balance -800 8375 695 - Physical Exam Constitutional: no apparent distress, appears nourished, not in pain, No uncomfortable Cardiovascular: no murmur, rub, or gallop, edema (1+ RLE), other (intermittent PVCs), No irregularly irregular, No tachycardia Respiratory: no respiratory distress, no rales or rhonchi, clear to auscultation Gastrointestinal: normoactive bowel sounds, soft, non-tender abdomen, no palpable masses, No distension Neurologic: AAOx3, No sensation intact bilaterally (impaired sensation RLE), No weakness (motor 5/5 bilat LE) Psychiatric: interacting appropriately, not anxious, not encephalopathic, thought process linear ICD10 Worksheet Patient Problems: Problems Problem Status Onset Febrile illness, acute Acute Cellulitis of right foot Acute
[2018-01-30] MEDS: HEPARIN 5,000 UNIT/0.5 ML INJ SC SCH (21:40)
[2018-01-31] MEDS: PENICILLIN POTASSIUM IV SCH ×4 (01:30→19:35)
[2018-01-31] MEDS: D5W IV SCH ×4 (01:30→19:35)
[2018-01-31] MEDS: NS 1,000 ML IV SCH ×2 (01:30→15:17)
[2018-01-31] MEDS: HEPARIN 5,000 UNIT/0.5 ML INJ SC SCH ×3 (07:17→21:47)
[2018-01-31] MEDS: ATORVASTATIN CALCIUM 10 MG TAB PO SCH (09:14)
[2018-01-31] MEDS ORDERED: ALTEPLASE 2 MG VIAL IVP PRN (11:11)
--- NOTE | 2018-01-31 11:17 | PCMIDPN ---
Assessment/Plan: 1. 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 He is very eager to go home, but understands that there are some logistical issues surrounding his antibiotics, wound VAC, etc that may slow his discharge. Hopefully he can go home at some point this weekend. PICC line placement today. Duration of antibiotics to be determined by surgical pathology, but for now, needs a minimum of 2 weeks of penicillin given bacteremia, tentative stop date February 10. This information was all conveyed to Anmol of social work, who is in the process of contacting [facility] to determine if he can get penicillin via continuous infusion. Of note, pt has history of rash/ulcerations from Keflex, which makes me nervous about once daily Ceftriaxone if continuous infusion is logistically problematic. ( Would prefer not to use this) Over 25 min spent with this patient today. 01/31/18 11:18 Subjective: In good spirits. Very loquacious. Still not able to have a bowel movement. Status post resection of 2.5 cm of additional 5th metatarsal; 1 cm was left behind. Patient has a wound VAC on presently. Eager to go home. Objective: Penicillin 2 million units IV q.6 hours day 3 No fevers Vital Signs Temp Pulse Resp BP Pulse Ox 36.3 C 62 18 131/77 H 94 01/31/18 07:33 01/31/18 07:33 01/31/18 07:33 01/31/18 07:33 01/31/18 07:33 Laboratory Results 01/29/18 05:00 01/31/18 04:52 01/30/18 01/31/18 02/01/18 05:59 05:59 05:59 Intake Total 0 2600 Output Total 375 445 250 Balance 1675 2155 -250 January 29 blood cultures x2 no growth No operative cultures sent from yesterday surgery. - Physical Exam General Appearance: alert, no apparent distress EENT: pharynx normal, No thrush Respiratory: lungs clear Cardiac/Chest: regular rate, rhythm Extremities: other (Right foot: Wound VAC in place. Some surrounding edema of the foot and lower extremity compared to left. Some pinkish erythema surrounding, but this is better compared with yesterday.) Skin: No rash ICD10 Worksheet Patient Problems: Problems Problem Status Onset Cellulitis of right foot Acute Febrile illness, acute Acute
--- NOTE | 2018-01-31 11:35 | PDIAF ---
- Diagnosis Diagnosis: Bacteremia/foot infection Code Status: Full Code - Medication Management Discharge Medications: Medications to Continue on Transfer Chlorthalidone [Chlorthalidone 25 mg (*)] 25 mg PO DAILY 01/27/18 [Last Taken ] Simvastatin 20 mg PO DAILY 01/27/18 [Last Taken 01/27/18] Molding Machine Tender Antibiotics: Penicillin 8 million units/24 hr Penitentiary Antibiotic Stop Date: 02/10/18 Discharge Medications: Refer to the Discharge Home Medication list for PRN reason. PICC Care - Routine: Yes - Labs/Radiology CBC w/diff Date: 02/05/18 ( please fax results to [phone]) CMP Date: 02/05/18 (Please fax results to [phone]) - Follow Up Care Current Providers and Referrals: BASHIR ROWLAND [Other] Lupillo Ocampo MD [Medical Doctor] - (Patient has appointment at [facility] SaturdayFebruary 04 at 2:[address] Ocampo.)
--- NOTE | 2018-01-31 12:26 | ASMTCMCOM ---
CM Note CM Note Notes: CM spoke to Dr. Sánchez and Dr. Lim regarding d/c POC. Pt will have a PICC placed today. Referral made to [facility]. [facility] able to accept. Karime from [facility] to stop by today to talk to patient about cost. Pt will owe 38$/week. CM met w/ pt for dispo planning. Pt does not have a preference on HC agencies. [facility] is able to accept pt and his insurance. CM confirmed pts address and phone number. ID transfer of care sent to [facility]. CM to follow. Plan: SARAH JAVED and [facility] Date Signed: 01/31/2018 12:25 PM Electronically Signed By:MAYRA Arias
--- NOTE | 2018-01-31 12:53 | SOAPPROG ---
SOAP Progress Note Assessment/Plan: Assessment: 87yo M c bacteremia from R foot osteo, now s/p revision 5th met amp - VSS, HDS - pain has been well controlled - VAC holding suction, output minimal and bloody - PICC today - DC tomorrow on ABX, path will determine length of tx, hopefully wont need any addl surgery - see me Saturday at 11 at [facility] Plan: 01/31/18 12:51 Subjective: feels great, ready to go home Objective: Vital Signs Temp Pulse Resp BP Pulse Ox 36.4 C 61 18 146/83 H 94 01/31/18 12:00 01/31/18 12:00 01/31/18 12:00 01/31/18 12:00 01/31/18 12:00 Laboratory Results 01/29/18 05:00 01/31/18 04:52 01/30/18 01/31/18 02/01/18 05:59 05:59 05:59 Intake Total 2050 2600 Output Total 836 663 250 Balance 1675 2155 -250 ICD10 Worksheet Patient Problems: Problems Problem Status Onset Cellulitis of right foot Acute Febrile illness, acute Acute
[2018-01-31] MEDS: HYDROCODONE/APAP 5/325 TAB PO PRN (15:19)
[2018-01-31] MEDS ORDERED: POLYETHYLENE GLYCOL 3350 17 GM PKT PO PRN (15:51)
[2018-01-31] MEDS ORDERED: LACTULOSE 20 GM/30 ML UDCUP PO PRN (15:51)
[2018-01-31] MEDS ORDERED: BISACODYL 10 MG SUPP PR PRN (15:51)
[2018-01-31] MEDS ORDERED: MAGNESIUM HYDROXIDE 30 ML UDCUP PO PRN (15:51)
[2018-01-31] MEDS: SENNOSIDES/DOCUSATE SODIUM TAB PO SCH ×2 (15:58→21:47)
--- NOTE | 2018-01-31 18:32 | HOSPPROG ---
Hospitalist Progress Note Assessment/Plan: Assessment: 87-year-old male presents with group a strep bacteremia secondary to right ft wound and cellulitis Plan: 1. Group A strep bacteremia. Present on admission, right lower extremity wound is the source -per Infectious Disease business development consultant Dr. Sánchez, she recommends IV penicillin for 2 weeks beyond blood culture clearance (stop date 02/10), currently attempting to determine if continuous PCN infusion possible via bulb -currently tolerating PCN w/o allergy -PICC today 2. Cellulitis. Present on admission, right lower extremity, around right lower extremity wound which is secondary to neuropathy and likely pressure injury -Abx as above 3. Pressure injury. Present on admission, right lower extremity, nonhealing in the outpatient setting, potentially osteomyelitis underneath -POD#1, d/w Dr. Alanis, he suggests that duration of Abx be determined by Bx results, which will likely be available next week and course can be extended by Dr. Sánchez from outpt ID appt -ongoing wound care, cont VAC, f/u appt w/ Dr. Alanis on Saturday 4. Neuropathy. Chronic, likely cause of above 5. Hypertension. Chronic, hold chlorthalidone given SBP 110s and WILLIE, restart at DC if BP rising 6. Acute kidney injury on chronic kidney disease stage 3. Secondary to hypovolemia in the setting of infection -resolved 7. Acute hyponatremia. Presenting serum sodium level 129 most likely secondary to hypovolemia with concomitant acute kidney injury, resolved 8. PVCs. Present on EKG -monitor on telemetry as the patient has no known history of AFib 9. Abdominal aortic aneurysm. 5.3 cm on imaging, will require outpatient surveillance, not currently symptomatic 10. Edema. Unilateral RLE, US neg for DVT 11. Suspected asymptomatic bacturia. E. faecalis, UA unremarkable, no sx Diet. Regular Prophylaxis. High risk patient, hep SC Code. Full Disposition. ADD 02/01, pending arrangements above Subjective: no pain in foot, no BMs Objective: Vital Signs Temp Pulse Resp BP Pulse Ox 36.6 C 52 L 18 138/83 H 96 01/31/18 15:33 01/31/18 15:33 01/31/18 15:33 01/31/18 15:33 01/31/18 15:33 Laboratory Results 01/29/18 05:00 01/31/18 04:52 01/30/18 01/31/18 02/01/18 05:59 05:59 05:59 Intake Total 3221 2602 3410 Output Total 834 009 250 Balance 1675 2150 1600 - Pending Discharge Pending Discharge Within 24 Hours: Yes Pending Discharge Date: 02/01/18 Pending Discharge Time: 11:00 - Physical Exam Constitutional: no apparent distress, appears nourished, not in pain, No uncomfortable Cardiovascular: edema (1+ RLE), other (intermittent etopy), No systolic murmur, No tachycardia, No bradycardia Respiratory: no respiratory distress, no rales or rhonchi, clear to auscultation Gastrointestinal: normoactive bowel sounds, soft, non-tender abdomen, no palpable masses Skin: other (blanching erythema surrounding wound vac, non-tender, VAC on lateral R foot) Neurologic: AAOx3, No sensation intact bilaterally (paresthesias RLE), No weakness Psychiatric: interacting appropriately, not anxious, not encephalopathic, thought process linear ICD10 Worksheet Patient Problems: Problems Problem Status Onset Febrile illness, acute Acute Cellulitis of right foot Acute
[2018-02-01] MEDS: PENICILLIN POTASSIUM IV SCH ×4 (02:55→20:01)
[2018-02-01] MEDS: D5W IV SCH ×4 (02:55→20:01)
[2018-02-01] MEDS: HEPARIN 5,000 UNIT/0.5 ML INJ SC SCH ×3 (04:59→21:36)
--- NOTE | 2018-02-01 08:27 | PDMN ---
Medical Necessity Medical necessity: Pt meets INPT criteria per MD as of 01/28/18 and MCG M-70 Cellulitis (cellulitis, strep bacteremia, pressure injury, WILLIE, acute hyponatremia, PVCs; requiring surgical intervention).
[2018-02-01] MEDS: ATORVASTATIN CALCIUM 10 MG TAB PO SCH (08:52)
[2018-02-01] MEDS: SENNOSIDES/DOCUSATE SODIUM TAB PO SCH ×2 (08:52→20:01)
[2018-02-01] MEDS: HYDROCODONE/APAP 5/325 TAB PO PRN (12:30)
--- NOTE | 2018-02-01 16:21 | HOSPPROG ---
Hospitalist Progress Note Assessment/Plan: DIAGNOSES: * wound infection at foot, with recurrent cellulitis after prior resection of 5th toe and portion of 5th metatarsal * Streptococcus bacteremia due to above * pressure injury of foot * acute kidney injury due to above * chronic peripheral neuropathy * hyponatremia * abdominal aortic aneurysm 5.3 cm * bacteriuria and pyuria, along with hematuria, uncertain significance at this time; Enterococcus should either way respond to antibiotic PLANS: * Discharge when home IV logistics arranged; unable to get his home dose set up for this afternoon should be able to go tomorrow * Continue IV penicillin here * Will recommend outpatient follow-up with his renal function * Outpatient follow-up for his aneurysm; will make sure Dr. Alanis is aware of this and following SUBJECTIVE: No pain No side effects from penicillin despite history of bad side effects from amoxicillin in the past OBJECTIVE Vitals reviewed: Stable without fever Exam: alert oriented skin warm dry color ok resps not labored lungs clear BSs heart regular abd soft nondistended nontender, bowel sounds present limbs warm, some edema still present but cellulitis much better iv site ok Objective: Vital Signs Temp Pulse Resp BP Pulse Ox 36.5 C 59 L 19 158/89 H 97 02/01/18 15:33 02/01/18 15:33 02/01/18 15:33 02/01/18 15:33 02/01/18 15:33 Laboratory Results 01/29/18 05:00 01/31/18 04:52 01/31/18 02/01/18 02/02/18 06:59 06:59 06:59 Intake Total 2600 1850 Output Total 445 250 400 Balance 2155 1600 -400 ICD10 Worksheet Patient Problems: Problems Problem Status Onset Cellulitis of right foot Acute Febrile illness, acute Acute
--- NOTE | 2018-02-01 16:35 | ASMTCMCOM ---
CM Note CM Note Notes: Pt very unhappy not to be discharging today. Discussed d/c for him tomorrow and alerted [facility] and [facility]. His will be here around lunchtime. Hospitalist alerted as well. CM will continue to follow. Date Signed: 02/01/2018 04:34 PM Electronically Signed By:EMMANUEL Bolaños
[2018-02-02] MEDS: D5W IV SCH ×2 (02:36→08:43)
[2018-02-02] MEDS: PENICILLIN POTASSIUM IV SCH ×2 (02:36→08:43)
[2018-02-02] MEDS: ACETAMINOPHEN 325 MG TAB PO PRN (02:43)
[2018-02-02] MEDS: HEPARIN 5,000 UNIT/0.5 ML INJ SC SCH (06:29)
[2018-02-02 07:30] VITALS: BP 110/72
[2018-02-02] MEDS: ATORVASTATIN CALCIUM 10 MG TAB PO SCH (08:43)
--- NOTE | 2018-02-02 08:45 | PDIAF ---
- Diagnosis Diagnosis: Bacteremia/foot infection, acute renal failure, AAA Code Status: Full Code - Medication Management Discharge Medications: Medications to Continue on Transfer Chlorthalidone [Chlorthalidone 25 mg (*)] 25 mg PO DAILY 01/27/18 [Last Taken ] Simvastatin 20 mg PO DAILY 01/27/18 [Last Taken 01/27/18] Form Block Maker Antibiotics: Penicillin 8 million units/24 hr Form Block Maker Antibiotic Stop Date: 02/10/18 Discharge Medications: Refer to the Discharge Home Medication list for PRN reason. PICC Care - Routine: Yes - Orders Services needed: Home Care, Registered Nurse Home Care Face to Face: I certify that this patient was under my care and that I had the required [id number] encounter meeting the encounter requirements on the discharge day. My findings support the fact that the patient is homebound as defined in Home Care Face to Face Continued: CMS Chapter 7 Medicare Benefits Manual 30.1.1 , The condition of the patient is such that there exists a normal inability to leave home and consequently, leaving home would require a considerable and taxing effort. Diet Recommendation: no restrictions on diet Diet Texture: Regular Texture Diet Additional Instructions: Contact Dr. Lupillo Ocampo at [facility] for any questions regarding antibiotic therapy, PICC catheter. Contact Dr. Omer Alanis for any questions regarding the patient's foot or wound care. - Labs/Radiology CBC w/diff Date: 02/05/18 ( please fax results to [phone]) CMP Date: 02/05/18 (Please fax results to [phone]) - Follow Up Care Current Providers and Referrals: BASHIR ROWLAND [Other] Lupillo Ocampo MD [Medical Doctor] - (Patient has appointment at [facility] SaturdayFebruary 04 at 2:[address] Ocampo.) Omer Alanis MD [Medical Doctor] - ([facility] at 11AM. I will see you there and change the VAC at that time. Please bring supplies for the change. )
[2018-02-02] MEDS: SENNOSIDES/DOCUSATE SODIUM TAB PO SCH (09:00)
--- NOTE | 2018-02-02 10:42 | ASMTCMCOM ---
CM Note CM Note Notes: Patient has discharge orders, CM contacted sent referral and contacted [facility] [phone], spoke with Pharmacist Ania informing of discharge -plan is for 2pm delivery. CM contacted Shivani RN vitreo retinal surgeon at [facility] to inform of discharge, they will inform evening RN. CM met with patient, shared [facility] and [facility] know he is discharging today. Patient states his will be transporting him and supporting him at home. RN shares he has his own wound vac he will be leaving with. IM delivered, signed for receipt and placed in back of chart. CM available if any further CM needs should arise. Current Discharge Plan: Discharge home this morning with Faust[facility] and [facility]. Date Signed: 02/02/2018 10:41 AM Electronically Signed By:Valentina King
--- NOTE | 2018-02-02 10:43 | ASMTLACE ---
LACE Length of stay for Answers: 4-6 days current admission Acuity / Level of Answers: Yes Care: Did the patient have an inpatient admission? Comorbidities - select Answers: Other Notes: HTN; HLD all that apply # of Emergency department Answers: 1-2 visits in the last 6 months Score: 9 Date Signed: 02/02/2018 10:42 AM Electronically Signed By:Valentina King
--- NOTE | 2018-02-02 11:25 | PDDCSUM ---
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 Omer Alanis and Dr. Yue emanuel PROCEDURES: Ultrasound of right leg without evidence of DVT PICC catheter in placement HOSPITAL COURSE SUMMARY: This patient with vascular disease and peripheral neuropathy previously presented with a pressure wound at the lateral aspect of his right foot with infection. He required amputation of 5th toe and the distal portion of the 5th metatarsal. He has been receiving ongoing outpatient wound care with wound VAC in place. However he presented at this time with febrile infection and streptococcal bacteremia. There was evidence of infection at the wound. He underwent debridement of wound with biopsy of the distal metatarsal. He was treated here with IV antibiotics and wound VAC care and has done very nicely with resolution of sepsis and fevers and his wounds looking significantly better. It is undetermined at this point whether he has remaining osteomyelitis and will wait for bone pathology determine duration of antibiotic therapy at this time. He did have some mild renal failure at the time of presentation and this result bounded nicely to IV fluids and treatment infection. He has otherwise done well without any complications here. PENDING TEST RESULTS: None MEDICATION CHANGES: Intravenous penicillin by continues 24 hr infusion pump at home through February 10 FOLLOW-UP PLAN: With Dr. Kylah Ann or in the [facility] Care [facility] tomorrow With Dr. Ocampo at [facility] in 10 days Greater than 35 minutes bedside and care coordination time today
--- NOTE | 2018-02-02 11:27 | PDDCSUM ---
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 Omer Alanis and Dr. Yue emanuel PROCEDURES: Ultrasound of right leg without evidence of DVT PICC catheter in placement CT scan with no evidence of PE but with a incidentally noted 5.3 cm ascending aortic aneurysm. HOSPITAL COURSE SUMMARY: This patient with vascular disease and peripheral neuropathy previously presented with a pressure wound at the lateral aspect of his right foot with infection. He required amputation of 5th toe and the distal portion of the 5th metatarsal. He has been receiving ongoing outpatient wound care with wound VAC in place. However he presented at this time with febrile infection and streptococcal bacteremia. There was evidence of infection at the wound. He underwent debridement of wound with biopsy of the distal metatarsal. He was treated here with IV antibiotics and wound VAC care and has done very nicely with resolution of sepsis and fevers and his wounds looking significantly better. It is undetermined at this point whether he has remaining osteomyelitis and will wait for bone pathology determine duration of antibiotic therapy at this time. He did have some mild renal failure at the time of presentation and this result bounded nicely to IV fluids and treatment infection. He has otherwise done well without any complications here. PENDING TEST RESULTS: None MEDICATION CHANGES: Intravenous penicillin by continues 24 hr infusion pump at home through February 10 FOLLOW-UP PLAN: With Dr. Alanis in the [facility]ound Care Clinic tomorrow With Dr. Ocampo at [facility] in 10 days He will follow up with Dr. Alanis and his primary care physician regarding finding of aortic aneurysm and coronary calcifications Greater than 35 minutes bedside and care coordination time today
--- NOTE | 2018-02-03 10:53 | ASDISCHSUM ---
Discharge Information Plan Status:Home with Home Health Medically Cleared to Leave:02/02/2018 Discharge Date:02/02/2018 11:31 AM CM D/C Disposition:Home Health Service ADT D/C Disposition:Home Health Service Projected Discharge Date:02/02/2018 11:00 AM Transportation at D/C:Family Discharge Delay Reason: Follow-Up Date:02/02/2018 11:00 AM Discharge Slot:1 - 8:01 am - 12:00 noon Final Diagnosis:Bacteremia/foot infection, acute renal failure Placement Information Referral Type:Home Infusion Referral ID:[id number] [facility] Address 1:[address] Address 2: City:[place] Selection Factors: State:[place] Referral Type:*Home Health Care Services Referral ID:[id number] Provider Name:[facility] Address 1:[address] Address 2: City:[place] Selection Factors: State:[place] Patient Contact Information Contact Name:GAVI Relationship: Address:[address] City:[facility] Phone: State/Zip Code:[place] [address] Email: Financial Information Financial Class:Medicare Advantage Plans Primary Plan Desc:[facility] MEDICARE ADV Primary Plan Number:[id number] Secondary Plan Desc: Secondary Plan Number: Assessment Information [facility] Initial CM Assessment Living Arrangements What is your living Answers: With Spouse arrangement? Who do you live with? Type Of Residence What kind of residence do Answers: House you live in? Discharge Plan Comments Coordination Status Comments Notes: Pt is a 87 y/o man admitted for febrile illness and presumed bacteremia. Pt recently had a right 5th toe amputation. ID and wound care is consulting. PT has been ordered and awaiting recommendations. Needs are TBD at this time. CM to follow. Plan: TBD Date Signed: 01/28/2018 09:49 AM Electronically Signed By:MAYRA Arias LACE LACE Length of stay for Answers: 4-6 days current admission Acuity / Level of Answers: Yes Care: Did the patient have an inpatient admission? Comorbidities - select Answers: Other Notes: HTN; HLD all that apply # of Emergency department Answers: 1-2 visits in the last 6 months Score: 9 Date Signed: 02/02/2018 10:42 AM Electronically Signed By:Valentina King [facility] CM Progress Note CM Note CM Note Notes: Pts case discussed w/ SARAH Grider. Pt had surgery today. Pt currently has a hospital wound vac attached. Pt has his own wound vac available to him to d/c with. PT has cleared pt to d/c home without any needs. CM available for changes. Plan: Independent Date Signed: 01/30/2018 02:23 PM Electronically Signed By:MAYRA Arias [facility] CM Progress Note CM Note CM Note Notes: CM spoke to Dr. Sánchez and Dr. Lim regarding d/c POC. Pt will have a PICC placed today. Referral made to [facility]. [facility] is able to accept. Karime from [facility] to stop by today to talk to patient about cost. Pt will owe 38$/week. CM met w/ pt for dispo planning. Pt does not have a preference on HC agencies. [facility] is able to accept pt and his insurance. CM confirmed pts address and phone number. ID transfer of care sent to [facility]. CM to follow. Plan: [facility], RN and [facility] Date Signed: 01/31/2018 12:25 PM Electronically Signed By:MAYRA Arias [facility] CM Progress Note CM Note CM Note Notes: Pt very unhappy not to be discharging today. Discussed d/c for him tomorrow and alerted [facility] and [facility]. His will be here around lunchtime. Hospitalist alerted as well. CM will continue to follow. Date Signed: 02/01/2018 04:34 PM Electronically Signed By:EMMANUEL Bolaños [facility] CM Progress Note CM Note CM Note Notes: Patient has discharge orders, CM contacted sent referral and contacted [facility] [phone], spoke with Pharmacist Ania informing of discharge -plan is for 2pm delivery. CM contacted Shivani SMITH public information specialist at [facility] to inform of discharge, they will inform evening RN. CM met with patient, shared Humber[facility] and [facility] know he is discharging today. Patient states his will be transporting him and supporting him at home. RN shares he has his own wound vac he will be leaving with. IM delivered, signed for receipt and placed in back of chart. CM available if any further CM needs should arise. Current Discharge Plan: Discharge home this morning with Fa[facility] and [facility]. Date Signed: 02/02/2018 10:41 AM Electronically Signed By:Valentina King Intervention Information
== END 2018-02-02 11:31 | disposition home health service (06) | DRG 857 ==
LOC: INTOOBSV 17:06 → F3E 18:01 → OBSVTOIN 01-28 16:21
PROVIDERS: ADMIT Internal Medicine; ATTEND Internal Medicine
PROC: 0QBN0ZZ Excision of Right Metatarsal, Open Approach (ICD-10-PCS; principal; 2018-01-30 11:00)
PROC: 2W1LX6Z Compression of Right Lower Extremity using Pressure Dressing (ICD-10-PCS; principal; 2018-01-30 11:00)
PROC: 02HV33Z Insertion of Infusion Device into Superior Vena Cava, Percutaneous Approach (ICD-10-PCS; 2018-01-31)
DX: T81.4XXA Infection following a procedure, initial encounter (principal); Z89.421 Acquired absence of other right toe(s); L03.116 Cellulitis of left lower limb; M86.171 Other acute osteomyelitis, right ankle and foot; R78.81 Bacteremia; B95.0 Streptococcus, group A, as the cause of diseases classified elsewhere; N17.9 Acute kidney failure, unspecified; N18.3 Chronic kidney disease, stage 3 (moderate); G62.9 Polyneuropathy, unspecified; E87.1 Hypo-osmolality and hyponatremia; I12.9 Hypertensive chronic kidney disease with stage 1 through stage 4 chronic kidney disease, or unspecified chronic kidney disease; E78.5 Hyperlipidemia, unspecified; I71.2 Thoracic aortic aneurysm, without rupture; Z87.891 Personal history of nicotine dependence; Z96.653 Presence of artificial knee joint, bilateral; Z96.641 Presence of right artificial hip joint; Z96.611 Presence of right artificial shoulder joint
CPT/HCPCS: 96365; 97116-GP; 97161-GP; C1751; G0378; G8978-GP-CI; G8978-GP-CK; G8979-GP-CI; J1100; J1644; J1650; J1956; J2405; J2540; J2704; J3010; J3370

== ENCOUNTER 2018-04-07 16:49 | Inpatient (IN) | payer OTHER ==
[2018-04-07] MEDS ORDERED: ONDANSETRON DISINTEGRATING 4 MG TAB PO PRN (17:28)
[2018-04-07] MEDS ORDERED: ONDANSETRON 4 MG/2 ML VIAL IVP PRN (17:28)
[2018-04-07] MEDS ORDERED: ACETAMINOPHEN 325 MG TAB PO PRN (17:28)
[2018-04-07] MEDS ORDERED: NS 1,000 ML IV SCH (17:30)
[2018-04-07] MEDS ORDERED: POLYETHYLENE GLYCOL 3350 17 GM PKT PO PRN (17:33)
[2018-04-07] MEDS ORDERED: LACTULOSE 20 GM/30 ML UDCUP PO PRN (17:33)
[2018-04-07] MEDS ORDERED: BISACODYL 10 MG SUPP PR PRN (17:33)
--- NOTE | 2018-04-07 18:01 | PDGENHP ---
History and Physical - Chief Complaint Acute foot drainage - History of Present Illness Primary infectious Disease: Dr. Lupillo Ocampo Primary general surgeon: Dr. Alanis HPI: 87-year-old male presents with acute foot drainage characterized as bloody drainage with onset of symptoms 2 days prior, duration persistent thereafter, associated with increased swelling located in the right foot and right calf. The drainage was somewhat alleviated by application of pressure by the patient and his . Patient presents to the [facility] today and was evaluated by Infectious Disease and wound care, underwent incision and drainage which resulted in a significant amount of pustulant exudate. The patient was directly admitted from the Wound Care Clinic for adjustment of IV antibiotics as well as amputation. He has otherwise been adherent to his home penicillin which he is administering via continuous infusion every 24 hr. During his wound care evaluation on 04/03, the affected area appeared to be stable, well healing. History Information - Allergies/Home Medication List Allergies/Adverse Reactions: amoxicillin Allergy (Verified 01/27/18 17:35) Other-Enter Comments cephalexin Allergy (Verified 01/27/18 17:35) Rash Home Medications: Chlorthalidone [Chlorthalidone 25 mg (*)] 25 mg PO DAILY 01/27/18 [Last Taken ] Simvastatin 20 mg PO DAILY 01/27/18 [Last Taken 02/12/18] I have personally reviewed and updated: family history, medical history, social history, surgical history - Past Medical History Additional medical history: Chronic neuropathy. Hypertension. Hyperlipidemia. Chronic kidney disease stage 3 with baseline serum creatinine 1.4-1.6. Abdominal aortic aneurysm measuring 5.3 cm. 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 at baseline Review of Systems Review of Systems: ROS: 10pt was reviewed & negative except for what was stated in HPI & below Constitutional: Denies: fever Skin: Reports: other (Swelling right lower extremity) Hematologic/Lymphatic: Reports: other (Pustulant exudate right foot) Physical Exam Physical Exam: Temp Pulse Resp BP Pulse Ox 36.4 C 75 12 142/84 H 93 04/07/18 17:11 04/07/18 17:11 04/07/18 17:11 04/07/18 17:11 04/07/18 17:11 Constitutional: no apparent distress, appears nourished, not in pain Eyes: PERRL, anicteric sclera, EOMI Ears, Nose, Mouth, Throat: moist mucous membranes, hearing normal, ears appear normal, no oral mucosal ulcers Cardiovascular: regular rate and rhythym, no murmur, rub, or gallop, edema (1+ right lower extremity), other (Diminished pulses bilateral popliteal) Respiratory: no respiratory distress, no rales or rhonchi, clear to auscultation Gastrointestinal: normoactive bowel sounds, soft, non-tender abdomen, no palpable masses, No hepatosplenomegally Skin: other (No erythema in the right calf, right foot is bandaged) Neurologic: AAOx3, No sensation intact bilaterally (Absent sensation toes right foot, intact sensation mid right calf) Psychiatric: interacting appropriately, not anxious, not encephalopathic, thought process linear Assessment & Plan Assessment: 87-year-old male presents with recurrent right lower extremity wound and abscess with suspected osteomyelitis requiring amputation Plan: 1. Right lower extremity abscess and wound with suspected osteomyelitis. Acute , new problem this provider, further workup indicated. Discussed with Dr. Alanis, he reports significant pustular exudate on incision and drainage. This infection has erupted despite ongoing use of penicillin infusion. -reviewed outside records including 04/03/2018 [facility] note by Dr. Lupillo Ocampo, indicating that the area was well healing at the 5th metatarsal site -discussed with Dr. Lupillo Ocampo, he reports to me that the patient should have antibiotic adjustment to expand coverage of anaerobes, likely will just ertapenem -wound culture has been sent from wound clinic, Dr. Ocampo has contacted the lab to ensure that there is Gram stain and evaluation for anaerobes -send blood cultures, white blood cell count, get coags for upcoming surgery -plan for amputation on 04/09, after the above data has been collected 2. Chronic kidney disease stage 3. Reviewed outside records, baseline serum creatinine level is 1.4-1.6 -get repeat serum creatinine level now to ensure appropriate antibiotic dosing -give normal saline overnight in the setting of infection to avoid acute kidney injury 3. Right lower extremity edema. Ultrasound from 01/29/2018 demonstrated no lower extremity DVT, the affected area has not substantially changed in its swelling and appearance per the patient as well as this observer evaluated the patient on that date -hold on additional imaging, this is most likely extremity edema in the setting of infection 4. Neuropathy. Chronic, unclear cause -recheck hemoglobin A1c -will check ABIs -diminished popliteal pulses bilaterally, would consider CT angio arterial studies if there is additional concern preoperatively 5. Hypertension. Continue chlorthalidone home dosing -aspirin 81 indicated for primary CAD prevention but would recommend holding until postoperatively to ensure no bleeding Diet. Regular Prophylaxis. High risk patient, hold pharmacologic given recent bleeding and incision and drainage, SCD in left lower extremity only Code. Full Disposition. Anticipated discharge uncertain this time, anticipated length stay greater than 48 hr for reasonable medical necessity including right lower extremity abscess in wound with suspected osteomyelitis requiring amputation.
[2018-04-07 18:41] LABS: PLATELET COUNT 482 10^3/uL (150-400)
[2018-04-07] MEDS: ERTAPENEM 1 GM in NS 100 ML IV SCH (18:43)
[2018-04-07 18:46] LABS: INR 1.26 (0.83-1.16)
--- NOTE | 2018-04-07 19:24 | WOCRNPDOC ---
WOCRN Advanced Assessment Note - Skin Integrity Problem, Advanced Assess Right Lateral Foot Diabetic Ulcer Dressing Type: Open to Air Exudate Amount: None Wound Bed Constitution: Granulation Tissue (100%) Wound Edges: Epithelizing Skin Integrity Problem Comment: Dry healing older wound. Right Medial Dorsal Foot Surgical Wound/Incision Dressing Type: ABD Pad, Gauze, Kerlix, Packing (gauze) Dressing Description: Intact, Saturated Exudate Amount: Excessive Exudate Characteristic(s): Sanguinous Integumentary Issue Intervention: Dressing Changed Jocelynn Wound Tissue: Erythema, Hot, Indurated Skin Integrity Problem Comment: Freshly I and D'd wound by Dr. Alanis. Essentially a pressure dressing. No liz bleeding noted, though the wound was bloody with clots; as expected in a new wound. Did not explore the base extensively as not to incur bleeding. Will write for BID wet to dry changes for all wounds as patient reports he is going to have an amputation of the foot on . Wound care will sign off. Right Pedal Foot Surgical Wound/Incision Dressing Type: ABD Pad, Gauze, Packing (gauze) Dressing Description: Intact, Saturated Exudate Amount: Excessive Exudate Characteristic(s): Sanguinous Jocelynn Wound Tissue: Erythema, Macerated Site Measurement - Head-to-Toe Length X Width X Depth (cm): 1.1x1x2.9 from 2 to 7 oclock 5 cm Skin Integrity Problem Comment: Patient has neuropathy bilaterally and does not have feeling in his foot. Per his report Dr. Alanis I and D'd wounds and copious pus was drained from both wounds on his feet today. Patient is having amputation of this foot .
[2018-04-07] MEDS: SENNOSIDES/DOCUSATE SODIUM TAB PO SCH (20:27)
[2018-04-08] MEDS: ERTAPENEM 1 GM in NS 100 ML IV SCH (09:07)
[2018-04-08] MEDS: CHLORTHALIDONE 25 MG TAB PO SCH (09:07)
[2018-04-08] MEDS: ATORVASTATIN CALCIUM 10 MG TAB PO SCH (09:07)
[2018-04-08] MEDS: SENNOSIDES/DOCUSATE SODIUM TAB PO SCH ×2 (09:12→22:26)
--- NOTE | 2018-04-08 10:17 | PDMN ---
Medical Necessity Medical necessity: Pt meets inpt criteria per MD order and [facility] [place] M-70, Cellulitis. 87 y/o w/recurrent R lower extremity wound and abcess with suspected osteomyelitis, amputation scheduled for 04/09/18. Infection has erupted despite ongoing IV ABX infusion as outpt. ID and Surg following. Comorbidities include adv age, chronic kidney disease, neuropathy, HTN. Anticipate>2MN for further workup/intervention for limb threatening RLE infection.
--- NOTE | 2018-04-08 12:17 | GCON ---
DATE OF CONSULTATION: 04/08/2018 CHIEF COMPLAINT: Right foot infection. HISTORY OF PRESENT ILLNESS: This is an 87-year-old male whom I have known well. Briefly, I have jessica en him to the operating room multiple times for a right distal foot infection with osteomyelitis, and at the most recent operation, took the remainder of the 5th metatarsal and the proximal cuboid bone. Since that time, he has been followed in the Wound Care Clinic and I have seen him weekly for conse rvative management and the wound continues to heal. He continues to be maintained on IV antibiotics, per Dr. Lupillo Ocampo. His last evaluation was last and he honestly looked great at that point in time. The wound was as small as it ever was, and the patient was feeling well. He stated that o naz the weekend, the foot began to have more swelling and the plantar surface in the medial middle po rtion of the foot actually opened up and started draining some material. He subsequently followed up in the Wound Care Clinic yesterday. In the clinic, other than the drainage, the patient had no comp laints. He denies any pain, but has no feeling in the area. He denied having any systemic complaint s including fevers or chills and was mainly there because of the drainage. He had no other concerns at that point in time. PAST MEDICAL HISTORY: Chronic neuropathy, hypertension, hyperlipidemia, chronic kidney disease, abdo kendra aortic aneurysm, chronic right foot infection with a history of strep bacteremia. SURGICAL HISTORY: Right foot debridement x3. FAMILY HISTORY: Noncontributory. CURRENT MEDICATIONS: Include chlorthalidone, simvastatin, and penicillin infusion. ALLERGIES: Include amoxicillin and cephalexin. 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 He denies any illicit drug us e. He was a previous smoker. REVIEW OF SYSTEMS: A full 10-point review was performed. PHYSICAL EXAMINATION: VITAL SIGNS: Temperature 36.9, blood pressure 124/72, his heart rate is 65, a nd he is 93% on room air. CONSTITUTIONAL: He is in no apparent distress and appears comfortable. H EENT: Eyes: His pupils are equal, round, and reactive to light and accommodation. He has anicteric sclerae. His extraocular movements are intact. Ears, nose, mouth, throat: He has moist mucous mem branes. He has poor dentition. His hearing is normal. CARDIOVASCULAR: He has a regular rate and r hythm without any murmurs. RESPIRATORY: He has no respiratory distress, rales, or rhonchi. He is o therwise clear to auscultation. ABDOMEN: Soft, nondistended, nontender. He has normoactive bowel s ounds. SKIN: Warm. Normal color. No rashes. EXTREMITIES: The right foot is significantly swolle n. There is an opening on the plantar surface as well as the dorsal surface of the foot draining pur ulent material. The foot is insensate. MUSCULOSKELETAL: Full strength. No tenderness. No feeling in the distal lower extremities. NEUROLOGIC: He is alert and oriented x3. His cranial nerves 2-12 are intact. PSYCH: He is interacting appropriately. He is not anxious or encephalopathic. LYMPH/ HEME/IMMUNOLOGIC: He has no cervical, groin, or supraclavicular lymphadenopathy. LABORATORY DATA: White count is actually normal at 8.8. He does have a left shift at 74% neutrophil s. His H and H are stable at 10 and 31. Coags: His INR is 1.26. His Chemistry shows that his A1c is 6.1, his BUN is 37, and his creatinine is 1.5. ASSESSMENT AND PLAN: [age]-old male with chronic right lower foot infection concerning for Charcot foot. After evaluation in the Wound Care Clinic yesterday, it is clear that the infection h as spread throughout the foot. I attempted to debride and wash the foot out, but it appears that the entire foot is grossly infected and I do not feel as though conservative management will be effectiv e. The decision was made to admit the patient to the hospital for broadening of IV antibiotics. We will see how this goes. I have already told the patient that the likelihood that he will need a belo w-knee amputation on the right side is almost certain. We will continue to monitor conservatively. Wound care involvement, Infectious Disease, Lupillo Ocampo will be following, but will likely need amputat ion, which I have subsequently scheduled for this . I have discussed the procedure with the patient and his . They appear to have a pretty good idea of what it entails, the postoperative c ourse, and his mobility after surgery. /[id number]/MODL
--- NOTE | 2018-04-08 15:05 | HOSPPROG ---
Hospitalist Progress Note Assessment/Plan: 87-year-old male presents with recurrent right lower extremity wound and abscess with suspected osteomyelitis requiring amputation. Today is my first encounter w the patient, chart reviewed. *r LE abscess w likely osteomyelitis -reviewed his care with Dr Ocampo -on Ertapenem -likely needs a BKA on the right leg *CKD stage 3 -baseline creat is 1.4-1.6 *RLE edema -had an ultrasound in january which showed no DVT *neuropathy -A1C is minimally elevated *HTN -bp stable *renal insufficiency -follow/ at baseline *anemia -reviewed his previous records and this is his baseline Subjective: Aris is not having any pain, realizes he needs surgery. Objective: Vital Signs Temp Pulse Resp BP Pulse Ox 36.2 C 69 20 115/83 H 95 04/08/18 12:00 04/08/18 12:00 04/08/18 12:00 04/08/18 12:00 04/08/18 12:00 Laboratory Results 04/07/18 18:10 04/07/18 18:10 04/07/18 04/08/18 04/09/18 05:59 05:59 05:59 Intake Total 0 Output Total 450 Balance -450 PT 16.0 SEC (12.0-15.0) H 04/07/18 18:10 INR 1.26 (0.83-1.16) H 04/07/18 18:10 - Physical Exam Constitutional: appears nourished, not in pain Eyes: PERRL Ears, Nose, Mouth, Throat: hearing normal Cardiovascular: regular rate and rhythym Respiratory: no respiratory distress Skin: warm, other (right lower ext w swelling, has a dressing in place with serous drainage) Neurologic: AAOx3 Psychiatric: interacting appropriately, not anxious ICD10 Worksheet Patient Problems: Problems Problem Status Onset Cellulitis of right foot Acute Febrile illness, acute Acute
--- NOTE | 2018-04-08 16:25 | ASMTCASEMG ---
Living Arrangements What is your living Answers: With Spouse arrangement? Who do you live with? Type Of Residence What kind of residence do Answers: House you live in? Discharge Plan Comments Coordination Status Comments Notes: Patient is an 87yo male with recurrent right lower extremity wound and abscess with suspected osteomyelitis requiring amputation. Surgery is scheduled for 04/09/18 after wound culture, blood cultures, and white blood cell count data has been gathered. Patient also has chronic kidney disease, neuropathy, and hypertension. Patient is high risk given recent bleeding, incision, and drainage. OT/PT/wound care ordered. D/C needs TBD. CM will follow. Date Signed: 04/08/2018 04:25 PM Electronically Signed By:Shiela Moore LCSW
--- NOTE | 2018-04-08 18:51 | PCMIDPN ---
Assessment/Plan: Assessment/Plan: * Osteomyelitis of right foot with development of abscess and new plantar ulceration penetrating to bone: Cultures remain no growth to date. Will continue ertapenem in event pathogen other than group A Streptococcus contributing. Discussed with patient that despite negative cultures BKA remains optimal definitive therapy. Follow up cultures as available with modification of antibiotics accordingly. 04/08/18 18:48 Subjective: Patient without specific complaints. No rash or diarrhea with ertapenem. Objective: Vital Signs Temp Pulse Resp BP Pulse Ox 36.5 C 76 12 115/85 H 96 04/08/18 15:51 04/08/18 15:51 04/08/18 15:51 04/08/18 15:51 04/08/18 15:51 Laboratory Results 04/07/18 18:10 04/07/18 18:10 04/07/18 04/08/18 04/09/18 05:59 05:59 05:59 Intake Total 0 1100 Output Total 450 250 Balance -450 850 Ertapenem # 2 Foot cultures Gram stain negative, culture no growth to date Blood cultures x2 pending - Physical Exam General Appearance: alert, no apparent distress EENT: No scleral icterus, No thrush, No conjunctival petechiae Respiratory: lungs clear, No respiratory distress Cardiac/Chest: regular rate, rhythm Extremities: other (Right foot dressed without cellulitis above dressing margins ) Abdomen: non-tender, No distended - Line/s LUE PICC Lines: No drainage, No erythema ICD10 Worksheet Patient Problems: Problems Problem Status Onset Cellulitis of right foot Acute Febrile illness, acute Acute
[2018-04-08] MEDS: MELATONIN 3 MG TAB PO SCH ×2 (22:24)
[2018-04-09] MEDS: SENNOSIDES/DOCUSATE SODIUM TAB PO SCH ×2 (10:10→20:50)
[2018-04-09] MEDS: CHLORTHALIDONE 25 MG TAB PO SCH (10:10)
[2018-04-09] MEDS: ATORVASTATIN CALCIUM 10 MG TAB PO SCH (10:11)
[2018-04-09] MEDS: ERTAPENEM 1 GM in NS 100 ML IV SCH (10:11)
--- NOTE | 2018-04-09 15:09 | HOSPPROG ---
Hospitalist Progress Note Assessment/Plan: 87-year-old male presents with recurrent right lower extremity wound and abscess with suspected osteomyelitis requiring amputation. *r LE abscess w likely osteomyelitis -has had problems with his leg since this past August -on Ertapenem -to go to OR tomorrow for a BKA - is very supportive *CKD stage 3 -baseline creat is 1.4-1.6 -creat is 1.5 *RLE edema -had an ultrasound in january which showed no DVT *neuropathy -A1C is minimally elevated *HTN -bp stable *renal insufficiency -follow/ at baseline *anemia -reviewed his previous records and this is his baseline *Plan: NPO after midnight and surgery tomorrow Subjective: Aris has no pain, is ok with surgery to help resolve all the problems he has had with his foot. Objective: Vital Signs Temp Pulse Resp BP Pulse Ox 36.4 C 70 16 128/80 H 94 04/09/18 12:00 04/09/18 12:00 04/09/18 12:00 04/09/18 12:00 04/09/18 12:00 Microbiology 04/07/18 18:10 Blood Panel (PCR) - Final Blood No Organism Detected Laboratory Results 04/07/18 18:10 04/07/18 18:10 04/08/18 04/09/18 04/10/18 05:59 05:59 05:59 Intake Total 0 1475 Output Total 450 1100 500 Balance -450 375 -500 PT 16.0 SEC (12.0-15.0) H 04/07/18 18:10 INR 1.26 (0.83-1.16) H 04/07/18 18:10 - Physical Exam Constitutional: no apparent distress, appears nourished, not in pain Eyes: PERRL Ears, Nose, Mouth, Throat: hearing normal Cardiovascular: regular rate and rhythym Respiratory: no respiratory distress Skin: other (right foot w dressing in place, draining serous drainage, 2+ pitting edema in his foot and calf area) Neurologic: AAOx3 Psychiatric: interacting appropriately ICD10 Worksheet Patient Problems: Problems Problem Status Onset Cellulitis of right foot Acute Febrile illness, acute Acute
[2018-04-09] MEDS ORDERED: MICAFUNGIN NA 100 MG in NS 100 ML IV SCH (15:30)
--- NOTE | 2018-04-09 16:25 | PCMIDPN ---
Assessment/Plan: Assessment/Plan: * Osteomyelitis of right foot with development of abscess and new plantar ulceration penetrating to bone: Cultures show growth of mixed cutaneous alma rosa Will continue ertapenem in event pathogen other than group A Streptococcus contributing. Plans for BKA tomorrow as definitive therapy for foot abscess/ osteomyelitis with underlying Charcot arthropathy. * Positive blood cultures: 1/2 blood cultures showing growth of yeast which does not identify as Helen species by BCID. Will repeat blood cultures today to determine if persistent fungemia present. Will remove PICC line as this could be potential etiology for fungemia. Foot would be unusual source. Will hold off on beginning empiric anti fungal therapy given clinical stability until additional data available regarding yeast identification since anti fungal susceptibility profile often species dependent. Outside possibility this represents contaminant although will require additional data to fully define. Do not think this finding should delay moving forward with BKA as scheduled. 04/09/18 16:22 04/09/18 16:25 Subjective: Patient without specific complaints. Plans for BKA tomorrow. Objective: Vital Signs Temp Pulse Resp BP Pulse Ox 36.4 C 70 16 128/80 H 94 04/09/18 12:00 04/09/18 12:00 04/09/18 12:00 04/09/18 12:00 04/09/18 12:00 Microbiology 04/07/18 18:10 Blood Panel (PCR) - Final Blood No Organism Detected Laboratory Results 04/07/18 18:10 04/07/18 18:10 04/08/18 04/09/18 04/10/18 05:59 05:59 05:59 Intake Total 0 1475 Output Total 450 1100 500 Balance -450 375 -500 Foot culture mixed cutaneous alma rosa Blood culture 1/2 sets with yeast, not identified as Helen species by BCID - Physical Exam General Appearance: alert, no apparent distress EENT: No scleral icterus Cardiac/Chest: regular rate, rhythm, No systolic murmur - Line/s LUE PICC Lines: No drainage, No erythema ICD10 Worksheet Patient Problems: Problems Problem Status Onset Cellulitis of right foot Acute Febrile illness, acute Acute
[2018-04-09] MEDS: MELATONIN 3 MG TAB PO SCH (20:50)
[2018-04-10] MEDS: ERTAPENEM 1 GM in NS 100 ML IV SCH (08:58)
[2018-04-10] MEDS ORDERED: ERTAPENEM 1 GM in NS 100 ML IV ONE (09:00)
[2018-04-10] MEDS: SENNOSIDES/DOCUSATE SODIUM TAB PO SCH ×2 (09:07→22:19)
[2018-04-10] MEDS: ATORVASTATIN CALCIUM 10 MG TAB PO SCH (09:08)
[2018-04-10] MEDS: CHLORTHALIDONE 25 MG TAB PO SCH (09:08)
--- NOTE | 2018-04-10 10:01 | PCMIDPN ---
Assessment/Plan: 1. Osteomyelitis right foot; BKA planned for this morning: Will continue ertapenem for now, then 1 day postoperatively and discontinue, as nidus of infection will be removed completely with a below the knee amputation. 2. Yeast in 1/4 blood cultures bottles: PICC line has been removed. No eye symptoms, and feel that an eye exam to rule out endophthalmitis is unnecessary presently. Repeat blood cultures are pending. Agree that we can hold off on empiric therapy for now given clinical stability. Subjective: Seems somewhat despondent this morning. Going for a BKA this morning. No visual change, shaking chills or fevers. PICC line was removed. Objective: Ertapenem 1 g IV daily day 4 No fevers Vital Signs Temp Pulse Resp BP Pulse Ox 36.3 C 74 16 119/77 91 L 04/10/18 07:08 04/10/18 07:08 04/10/18 07:08 04/10/18 09:08 04/10/18 07:08 Microbiology 04/07/18 18:10 Blood Panel (PCR) - Final Blood No Organism Detected Laboratory Results 04/07/18 18:10 04/07/18 18:10 04/09/18 04/10/18 04/11/18 05:59 05:59 05:59 Intake Total 1475 250 Output Total 1100 2100 Balance 375 -1850 Blood cultures April 07 x2 sets 1/4 bottles with yeast - Physical Exam General Appearance: alert, no apparent distress EENT: pharynx normal, No scleral icterus, No thrush Respiratory: lungs clear Extremities: other (Right foot wrapped; I did not take this down. No obvious cellulitis of his lower extremity) ICD10 Worksheet Patient Problems: Problems Problem Status Onset Cellulitis of right foot Acute Febrile illness, acute Acute
--- NOTE | 2018-04-10 11:08 | HOSPPROG ---
Hospitalist Progress Note Assessment/Plan: 87-year-old male presents with recurrent right lower extremity wound and abscess with suspected osteomyelitis scheduled for R BKA today *r LE abscess w likely osteomyelitis -has had problems with his leg since this past August -on Ertapenem -to go to [place] tomorrow for a BKA today - is very supportive *CKD stage 3, at baseline -baseline creat is 1.4-1.6 *RLE edema -had an ultrasound in january which showed no DVT *neuropathy -A1C is minimally elevated *HTN -bp stable *renal insufficiency -follow/ at baseline *anemia -reviewed his previous records and this is his baseline *07/04 bottles with yeast: -clinically doing well -ID recc's holding treatment. No need for Endophthalmitus testing per ID -s/p PICC line removal Plan: surgical mgmt today repeat labs in a.m. cont Ertapenem through POD #1 per ID Subjective: no cp or sob. awaiting surgery. no visual deficits or problems Objective: Vital Signs Temp Pulse Resp BP Pulse Ox 36.3 C 74 16 119/77 91 L 04/10/18 07:08 04/10/18 07:08 04/10/18 07:08 04/10/18 09:08 04/10/18 07:08 Microbiology 04/07/18 18:10 Blood Panel (PCR) - Final Blood No Organism Detected Laboratory Results 04/07/18 18:10 04/09/18 04/10/18 04/11/18 05:59 05:59 05:59 Intake Total 1475 250 Output Total 1100 2100 Balance 375 -1850 PT 16.0 SEC (12.0-15.0) H 04/07/18 18:10 INR 1.26 (0.83-1.16) H 04/07/18 18:10 - Physical Exam Constitutional: no apparent distress Eyes: PERRL Ears, Nose, Mouth, Throat: moist mucous membranes, hearing normal, ears appear normal Cardiovascular: regular rate and rhythym Respiratory: no respiratory distress, no rales or rhonchi, clear to auscultation Gastrointestinal: normoactive bowel sounds Skin: warm Neurologic: AAOx3 Psychiatric: interacting appropriately, not anxious, not encephalopathic Lymph, Heme, Immunologic: No petechiae ICD10 Worksheet Patient Problems: Problems Problem Status Onset Cellulitis of right foot Acute Febrile illness, acute Acute
[2018-04-10] MEDS ORDERED: LR 1,000 ML IV ONE (11:10)
[2018-04-10] MEDS ORDERED: BUPIVACAINE 0.25% 30 ML SDV ONE (11:12)
[2018-04-10] MEDS ORDERED: BACITRACIN 50,000 UNITS/10 ML SYR IRR ONE (11:12)
[2018-04-10] MEDS ORDERED: ceFAZolin 1 GM/5 ML SYR ONE (11:12)
[2018-04-10] MEDS ORDERED: POLYMYXIN B SULFATE 500,000 UNIT/10 ML SYR IRR ONE (11:13)
--- NOTE | 2018-04-10 11:36 | PDANEPAE ---
<NeftalySebastian - Last Filed: 04/10/18 12:52> ANE Review of Systems Review of systems is: negative Review of Systems: - Exercise capacity Exercise capacity: <4 METS, limited by disability ANE Patient History - Allergies Allergies/Adverse Reactions: amoxicillin Allergy (Verified 01/27/18 17:35) Other-Enter Comments cephalexin Allergy (Verified 01/27/18 17:35) Rash - Home Medications Home Medications: Chlorthalidone [Chlorthalidone 25 mg (*)] 25 mg PO DAILY 01/27/18 [Last Taken 08:00] Simvastatin 20 mg PO DAILY 01/27/18 [Last Taken 04/07/18 08:00] ANE Labs/Vital Signs - Labs Result Diagrams: 04/07/18 18:10 04/10/18 10:26 ANE Physical Exam - Airway Neck exam: FROM Mallampati Score: Class 1 Mouth exam: normal dental/mouth exam - Pulmonary Pulmonary: no respiratory distress - Cardiovascular Cardiovascular: regular rate and rhythym - ASA Status ASA Status: III ANE Anesthesia Plan Anesthesia Plan: GA w LMA [facility] Anesthesia: single shot NB, popliteal SNB, POPC/PSR Urgent/Emergent Case: Wilbur wyman completed preop but documented later for safe timely pt care <Ania Soares - Last Filed: 04/15/18 11:13> ANE History of Present Illness 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 Did not do case ANE Past Medical History - Cardiovascular History Hx Hypertension: Yes Hx Arrhythmias: No Hx Chest Pain: No Hx Coronary Artery / Peripheral Vascular Disease: No Hx CHF / Valvular Disease: No Hx Palpitations: No Cardiovascular History Comment: ascending aortic aneurysm (5.3 cm). HPL - Pulmonary History Hx COPD: No Hx Asthma/Reactive Airway Disease: No Hx Recent Upper Respiratory Infection: No Hx Oxygen in Use at Home: No Hx Sleep Apnea: No Sleep Apnea Screening Result - Last Documented: Positive - Neurologic History Hx Cerebrovascular Accident: No Hx Seizures: No Hx Dementia: No - Endocrine History Hx Diabetes: No - Renal History Hx Renal Disorders: No Renal History Comment: prostatectomy. CKD III - Liver History Hx Hepatic Disorders: No - Neurological & Psychiatric Hx Hx Neurological and Psychiatric Disorders: No - Cancer History Hx Cancer: Yes Cancer History Comment: urethral cancer - Congenital Disorder History Hx Congenital Disorders: No - GI History Hx Gastrointestinal Disorders: No - Other Health History Other Health History: right toe. wounds to both feet pt attending wound care clinic. anemia (Hct: 32) - Chronic Pain History Chronic Pain: No - Surgical History Prior Surgeries: right hip and shoulder replaced. R 5th metatarsal amputation ANE Review of Systems Review of Systems: ANE Patient History - Home Medications Home medications: home medication list seen and reviewed - NPO status NPO Since - Liquids (Date): 04/09/18 NPO Since - Liquids (Time): 00:00 NPO Since - Solids (Date): 04/09/18 NPO Since - Solids (Time): 00:00 - Smoking Hx Smoking Status: Former smoker - Alcohol Use Alcohol Use: None - Family Anes Hx Family Hx Anesthesia Complications: none ANE Labs/Vital Signs - Labs Result Diagrams: 04/14/18 05:36 04/11/18 05:34 - Vital Signs Blood Pressure: 130/85 Heart Rate: 77 Respiratory Rate: 16 O2 Sat (%): 93 Height: 177.8 cm Weight: 84.414 kg
[2018-04-10] MEDS ORDERED: PROPOFOL 200 MG/20 ML VIAL ONE (11:50)
[2018-04-10] MEDS ORDERED: fentaNYL 100 MCG/2 ML INJ ONE ×3 (11:50→15:09)
[2018-04-10] MEDS ORDERED: ROPIVACAINE HCL 150 MG/30 ML INJ ONE (11:52)
[2018-04-10] MEDS ORDERED: LIDOCAINE 2% 2 ML INJ ONE ×6 (11:54→11:57)
[2018-04-10] MEDS ORDERED: ONDANSETRON 4 MG/2 ML VIAL ONE (11:57)
[2018-04-10] MEDS ORDERED: DEXAMETHASONE 4 MG/ML VIAL ONE (11:57)
--- NOTE | 2018-04-10 12:53 | POSTANESTH ---
Post Anesthetic Evaluation Cardiovascular Status: Normal, Stable Respiratory Status: Normal, Stable Level of Consciousness/Mental Status: Can Participate in Eval, Mildly Sleepy, Arousable Pain Control: Adequate, Prn Tx Ordered Nausea/Vomiting Control: Adequate, Prn Tx Ordered Complications Possibly Related to Anesthesia: None Noted
[2018-04-10] MEDS: BUPIVACAINE 0.5% 30 ML SDV ONE ×2 (13:09→13:13)
[2018-04-10] MEDS ORDERED: PROMETHAZINE HCL 25 MG/ML INJ IVP PRN (13:44)
[2018-04-10] MEDS ORDERED: ALBUTEROL 3 ML DEYVIAL IH PRN (13:44)
[2018-04-10] MEDS ORDERED: fentaNYL 100 MCG/2 ML INJ IVP PRN (13:44)
[2018-04-10] MEDS ORDERED: HYDROCODONE/APAP 5/325 TAB PO PRN (13:44)
[2018-04-10] MEDS ORDERED: ONDANSETRON 4 MG/2 ML VIAL IVP PRN (13:44)
[2018-04-10] MEDS ORDERED: ACETAMINOPHEN 500 MG TAB PO PRN (13:44)
[2018-04-10] MEDS ORDERED: NALOXONE HCL 0.4 MG/ML INJ IVP PRN (13:44)
[2018-04-10] MEDS ORDERED: oxyCODONE IR 5 MG TAB PO PRN (13:44)
[2018-04-10] MEDS ORDERED: LR 500 ML IV PRN (13:44)
[2018-04-10] MEDS ORDERED: HYDROmorphONE/DILAUDID 2 MG/ML INJ IVP PRN (13:44)
[2018-04-10] MEDS ORDERED: ACETAMINOPHEN 500 MG TAB ONE (15:24)
--- NOTE | 2018-04-10 15:33 | POSTOPPROG ---
Post Op Note Date of Operation: 04/10/18 Surgeon: Omer Alanis Reed Press Feeder: Juan Sandoval MD Anesthesiologist: Neftaly Anesthesia: GET(General Endotracheal) Pre-op Diagnosis: R foot osteomyelitis Post-op Diagnosis: same Procedure: R below knee amputation Findings: good flow in prox vessels, no visible infxn proximally Inf/Abcess present in the surg proc area at time of surgery?: Yes Depth: Deep Incisional (Fascial) EBL: 50-100 Total fluids administered: 1000washout of flap Drains: Wound Vac Specimen(s): R leg
[2018-04-10] MEDS ORDERED: HYDROmorphONE/DILAUDID 1 MG/ML INJ IVP PRN (15:37)
--- NOTE | 2018-04-10 17:21 | ASMTCMCOM ---
CM Note CM Note Notes: Pt went for BKA today, will work with therapies when able. CM w/f for therapy recommendations, he is current with [facility]. DC Plan: TBD Date Signed: 04/10/2018 05:20 PM Electronically Signed By:Jimena Tejada RN
--- NOTE | 2018-04-10 18:06 | GOP ---
DATE OF OPERATION: 04/10/2018 SURGEON: Omer Alanis MD CODING FILE CLERK: Juan Sandoval MD. ANESTHESIA: General endotracheal. ANESTHESIOLOGIST: Dr. Higginbotham. PREOPERATIVE DIAGNOSIS: Osteomyelitis and worsening infection of the right foot. POSTOPERATIVE DIAGNOSIS: Osteomyelitis and worsening infection of the right foot. PROCEDURE PERFORMED: Right below-knee amputation. FINDINGS: Good healthy stump. Incisional wound VAC placed. Wound gently flexed and placed on tennille ws at the end of the procedure. SPECIMENS: Right leg. ESTIMATED BLOOD LOSS: 75 cc. DESCRIPTION OF PROCEDURE: The patient was greeted in the preoperative suite. Once again, risks, rocky efits, and alternatives were discussed. Consent was signed. He was then brought back to the operati ve suite, placed on the OR table in supine position. After all anesthesia machines including SCDs we re on and functioning, a [employer] time-out was performed. After successful inductio n of general anesthesia, the patient's right lower leg was prepped and draped in typical sterile fash ion. I commenced the procedure by marking out landmarks identifying the tibial tuberosity. Approxim ately 10 cm distal to this, the transection point was identified. I then carried this down for a 2/3 circumference flap and marked this distally down to the level of the ankle. I commenced the procedu re by sharply dissecting the skin at the level of these albright. I carried it down through subcutaneou s tissue where medially, the saphenous vein and nerve were identified. The saphenous vein was succes sfully ligated with a 2-0 silk tie and the nerve was drawn out and transected. I then dissected thro ugh the subcutaneous tissue in the medial compartment and lateral compartment and then turned my atte ntion toward the lateral musculature adjacent to the tibia. Prior to doing this, I cleaned off the p eriosteum on the tibia for approximately 3 cm. I turned my attention toward the anterolateral compar tment. The muscular bundle within it was dissected off the medial bone and I successfully took this with electrocautery. Just deep to this, the anterior tibial vessels and deep peroneal nerve were naga ntified. I doubly ligated both the vein and the artery. I keyla out the nerve and successfully amput ated it as well after anesthetizing it with 0.5% Marcaine. I then cut the tibia using a bone saw. O nce the tibia was cut, I turned my attention laterally and identified the fibula. Again, I cleaned o ff the periosteum using a periosteal elevator and divided the fibula itself. Once both bones were donnelly ccessfully ligated, I used a bone hook and elevated the lower leg and then turned my attention toward taking the musculature off the posterior fibula, which was done sharply. This was done to the exten t of the skin flap distally. The specimen was then removed and passed off. I turned my attention to guaman the deep compartment. The posterior tibial vessels were identified and doubly ligated. The christopher eus muscle was then cleansed after successful identification and cleaning off additional lateral comp artment tissue. I then turned my attention toward bevelling the tibia, which was done at a 45 degree s angle. I then rounded this off using a bone rasp. The tourniquet was then successfully taken down . There were a few small muscle perforators which were bleeding, which was were successfully taken c are of with electrocautery. The remainder of the named vessels were all hemostatic I irrigated the f lap with a liter of sterile saline to remove all debris. I then turned my attention toward closing, which was done in layers. I performed a myodesis by reapproximating the gastrocs to the anterior tib ial periosteum. I then carried my fascial closure around first laterally than medially, making sure the skin flaps had no dog-ears. Once the fascia was closed, I applied EpiFix in the anterior medial and lateral compartments to aid in wound healing. I then reapproximated the fascia circumferentially . After fascial reapproximation, I turned my attention toward skin closure. This was done with inte rrupted 2-0 nylon sutures. After this was done, I placed an incisional wound VAC which was holding s uction appropriately. The patient was then gently awoken in the operative suite, taken to PACU in sa tisfactory condition. DRAINS: Wound VAC. COUNTS: All counts were reported as correct x2. /[id number]/MODL
[2018-04-10] MEDS: oxyCODONE IR 5 MG TAB PO PRN (22:19)
[2018-04-10] MEDS: MELATONIN 3 MG TAB PO SCH (22:19)
[2018-04-10] MEDS: HYDROmorphONE/DILAUDID 2 MG/ML INJ IVP PRN (23:56)
[2018-04-11] MEDS: oxyCODONE IR 5 MG TAB PO PRN ×5 (05:38→22:10)
[2018-04-11 06:00] LABS: PLATELET COUNT 429 10^3/uL (150-400)
[2018-04-11] MEDS: HYDROmorphONE/DILAUDID 2 MG/ML INJ IVP PRN ×2 (07:52→20:32)
[2018-04-11] MEDS: ERTAPENEM 1 GM in NS 100 ML IV SCH (09:22)
[2018-04-11] MEDS: ATORVASTATIN CALCIUM 10 MG TAB PO SCH (09:23)
[2018-04-11] MEDS: CHLORTHALIDONE 25 MG TAB PO SCH (09:25)
[2018-04-11] MEDS: SENNOSIDES/DOCUSATE SODIUM TAB PO SCH ×2 (09:28→19:30)
--- NOTE | 2018-04-11 10:16 | PCMIDPN ---
Assessment/Plan: 1. Osteomyelitis right foot; BKA planned for this morning: Will discontinue ertapenem given removal of infected nidus. 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 No eye symptoms, and feel that an eye exam to rule out endophthalmitis is unnecessary. Given presence of 3 prosthetic joints ( knees, hip, and shoulder), feel uncomfortable withholding therapy. Helen lusitaniae maintains susceptibility azoles and echinochandins, but usually is resistant to ampho B. to Will therefore treat with fluconazole 200 mg p.o. Daily, dose adjusted for renal insufficiency (50% of the dose) and follow liver function tests closely. Given that fluconazole can also increase atorvastatin levels, will follow CK as well, although the patient is on a very low dose of atorvastatin. Repeat blood cultures so far no growth. All of this was explained to the patient today, who expressed understanding. Over 25 min spent with this patient today. 04/11/18 10:16 Subjective: Having phantom pain right lower extremity, as if right foot were still there. No diarrhea. Objective: Ertapenem 1 g IV daily Vital Signs Temp Pulse Resp BP Pulse Ox 36.3 C 81 16 81/43 L 88 L 04/11/18 07:49 04/11/18 07:49 04/11/18 07:49 04/11/18 09:25 04/11/18 07:49 Microbiology 04/07/18 18:10 Blood Panel (PCR) - Final Blood No Organism Detected 04/10/18 12:29 Gram Stain - Final Foot - Eswab Laboratory Results 04/11/18 05:34 04/11/18 05:34 04/10/18 04/11/18 04/12/18 05:59 05:59 05:59 Intake Total 250 1450 Output Total 2100 450 Balance -1850 1000 Blood cultures April 0707/04 bottles with Helen lusitaniae, resistance profile pending Repeat blood cultures April 09 no growth so far - Physical Exam General Appearance: alert, no apparent distress EENT: pharynx normal, No thrush Extremities: other (Right stump with wound VAC in place. No surrounding evidence of cellulitis.) Skin: No rash, No embolic lesions ICD10 Worksheet Patient Problems: Problems Problem Status Onset Cellulitis of right foot Acute Febrile illness, acute Acute
--- NOTE | 2018-04-11 12:53 | SOAPPROG ---
SOAP Progress Note Assessment/Plan: Assessment: 87yo M POD#1 s/p R BKA for osteomyelitis and infection - VSS, HDS - pain still very well controlled with block. Is taking some PO as well. Having a lot of phantom limb pain. Will discuss with IM but gabapentin could help with this - PT/OT - Incisional VAC to the site, some bloody drainage. - Doing very well. Will get stump protector and logistics tech next week Plan: 04/11/18 12:51 Subjective: my toes hurt Objective: Vital Signs Temp Pulse Resp BP Pulse Ox 36.3 C 69 16 110/70 96 04/11/18 11:29 04/11/18 11:29 04/11/18 11:29 04/11/18 11:29 04/11/18 11:29 Microbiology 04/07/18 18:10 Blood Panel (PCR) - Final Blood No Organism Detected 04/10/18 12:29 Gram Stain - Final Foot - Eswab Laboratory Results 04/11/18 05:34 04/11/18 05:34 04/10/18 04/11/18 04/12/18 05:59 05:59 05:59 Intake Total 250 1450 Output Total 2100 450 Balance -1850 1000 PT 16.0 SEC (12.0-15.0) H 04/07/18 18:10 INR 1.26 (0.83-1.16) H 04/07/18 18:10 ICD10 Worksheet Patient Problems: Problems Problem Status Onset Cellulitis of right foot Acute Febrile illness, acute Acute
--- NOTE | 2018-04-11 13:27 | HOSPPROG ---
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 *RLE abscess w osteomyelitis *s/p R BKA *CKD stage 3, at baseline -baseline creat is 1.4-1.6 *RLE edema -had an ultrasound in january which showed no DVT *neuropathy -A1C is minimally elevated *HTN -now with hypotension *renal insufficiency -follow/ at baseline *anemia -reviewed his previous records and this is his baseline *07/04 bottles with yeast: -clinically doing well -ID recc's holding treatment. No need for Endophthalmitus testing per ID -s/p PICC line removal -on Fluconazole Plan: post op care pain mgmt BP better this afternoon. BP meds held. Will stop them. Will give 1 L as well. Repeat H/H tomorrow, transfuse if needed. Subjective: no cp or sob. had some hypotension earlier, now slightly better. Objective: Vital Signs Temp Pulse Resp BP Pulse Ox 36.3 C 69 16 110/70 96 04/11/18 11:29 04/11/18 11:29 04/11/18 11:29 04/11/18 11:29 04/11/18 11:29 Microbiology 04/07/18 18:10 Blood Panel (PCR) - Final Blood No Organism Detected 04/10/18 12:29 Gram Stain - Final Foot - Eswab Laboratory Results 04/11/18 05:34 04/11/18 05:34 04/10/18 04/11/18 04/12/18 05:59 05:59 05:59 Intake Total 250 1450 Output Total 2100 450 Balance -1850 1000 PT 16.0 SEC (12.0-15.0) H 04/07/18 18:10 INR 1.26 (0.83-1.16) H 04/07/18 18:10 - Physical Exam Constitutional: no apparent distress Eyes: PERRL Ears, Nose, Mouth, Throat: moist mucous membranes, hearing normal Cardiovascular: regular rate and rhythym, No edema Respiratory: no respiratory distress, no rales or rhonchi, clear to auscultation Gastrointestinal: normoactive bowel sounds, soft, non-tender abdomen Skin: warm Neurologic: AAOx3 Psychiatric: interacting appropriately, not anxious, not encephalopathic Lymph, Heme, Immunologic: No petechiae ICD10 Worksheet Patient Problems: Problems Problem Status Onset Cellulitis of right foot Acute Febrile illness, acute Acute
[2018-04-11] MEDS ORDERED: NS 1,000 ML IV SCH (13:30)
[2018-04-11] MEDS: MELATONIN 3 MG TAB PO SCH (19:37)
[2018-04-12] MEDS: oxyCODONE IR 5 MG TAB PO PRN ×3 (02:18→18:03)
[2018-04-12 06:16] LABS: CREATINE KINASE 115 IU/L (0-224)
--- NOTE | 2018-04-12 08:44 | PCMIDPN ---
Assessment/Plan: Assessment/Plan: * Osteomyelitis of right foot with development of abscess and new plantar ulceration penetrating to bone: Stat dose post BKA and now off antibiotic therapy. Continue observation off antibiotics as BKA should be curative. * Fungemia: 1/2 blood cultures showing growth of Helen lusitaniae. Repeat blood culture show clearing of Helen. Helen lusitaniae typically is azole susceptible. Plan 2 weeks of oral fluconazole at 200 mg per day based on his underlying renal insufficiency. Baseline CPK is normal (assess due to interaction between fluconazole and lipitor). 04/12/18 08:41 Subjective: Patient complains of some pain in right lower extremity post amputation. Objective: Vital Signs Temp Pulse Resp BP Pulse Ox 36.4 C 68 16 110/65 97 04/12/18 08:00 04/12/18 08:00 04/12/18 08:00 04/12/18 08:00 04/12/18 08:00 Microbiology 04/10/18 12:29 Gram Stain - Final Foot - Eswab 04/07/18 18:10 Blood Panel (PCR) - Final Blood No Organism Detected Laboratory Results 04/12/18 05:40 04/11/18 05:34 04/11/18 04/12/18 04/13/18 05:59 05:59 05:59 Intake Total 1450 1525 Output Total 450 750 Balance 1000 775 Fluconazole # 2 Blood cultures 04/07/2018 1/2 sets Helen lusitaniae Blood cultures 04/09/2018 no growth to date Foot culture Corynebacterium striatum - Physical Exam General Appearance: alert, no apparent distress EENT: No scleral icterus Respiratory: lungs clear, No respiratory distress Cardiac/Chest: regular rate, rhythm, No systolic murmur Extremities: other (Right lower extremity BKA site with wound VAC in place; no erythema present) Abdomen: non-tender, No distended ICD10 Worksheet Patient Problems: Problems Problem Status Onset Cellulitis of right foot Acute Febrile illness, acute Acute
[2018-04-12] MEDS: ATORVASTATIN CALCIUM 10 MG TAB PO SCH (08:55)
[2018-04-12] MEDS: FLUCONAZOLE 100 MG TAB PO SCH (08:55)
[2018-04-12] MEDS: SENNOSIDES/DOCUSATE SODIUM TAB PO SCH ×2 (08:58→20:14)
--- NOTE | 2018-04-12 10:02 | HOSPPROG ---
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 *RLE abscess w osteomyelitis *s/p R BKA *CKD stage 3, at baseline -baseline creat is 1.4-1.6 *RLE edema -had an ultrasound in january which showed no DVT *neuropathy -A1C is minimally elevated *HTN -BP has improved since yesterday and with IVF x 1 liter. No further IVF is needed. Will cont to hold thiazide diuretic *renal insufficiency -follow/ at baseline *Acute on chronic anemia, post op anemia -Hgb has trended down slightly. If further drop, will consider transfusion. will recheck tomorrow. *07/04 bottles with yeast: -clinically doing well -No need for Endophthalmitus testing per ID -s/p PICC line removal -on Fluconazole daily x 2 weeks -repeat testing is c/w clearing Plan: post op care pain mgmt BP mgt per above Antifungal per above Subjective: pain is well controlled. Denies respiratory issues. BP has stabalized Objective: Vital Signs Temp Pulse Resp BP Pulse Ox 36.4 C 68 16 110/65 97 04/12/18 08:00 04/12/18 08:00 04/12/18 08:00 04/12/18 08:00 04/12/18 08:00 Microbiology 04/10/18 12:29 Gram Stain - Final Foot - Eswab 04/07/18 18:10 Blood Panel (PCR) - Final Blood No Organism Detected Laboratory Results 04/12/18 05:40 04/11/18 05:34 04/11/18 04/12/18 04/13/18 05:59 05:59 05:59 Intake Total 1450 1525 Output Total 450 750 200 Balance 1000 775 -200 PT 16.0 SEC (12.0-15.0) H 04/07/18 18:10 INR 1.26 (0.83-1.16) H 04/07/18 18:10 - Physical Exam Constitutional: no apparent distress Eyes: PERRL Ears, Nose, Mouth, Throat: moist mucous membranes, hearing normal Cardiovascular: regular rate and rhythym, No edema Respiratory: no respiratory distress, no rales or rhonchi, clear to auscultation Gastrointestinal: normoactive bowel sounds, soft, non-tender abdomen Skin: warm Musculoskeletal: other (right bka. wound vac in place) Neurologic: AAOx3 Psychiatric: interacting appropriately, not anxious, not encephalopathic ICD10 Worksheet Patient Problems: Problems Problem Status Onset Cellulitis of right foot Acute Febrile illness, acute Acute
--- NOTE | 2018-04-12 14:06 | SOAPPROG ---
SOAP Progress Note Assessment/Plan: Assessment: s/p R BKA for chronic wounds Doing well Continue incisional wound vac PT/OT ? inpatient rehab S: No complaints O: Stump is swollen. Dressing intact Plan: 04/12/18 14:05 Objective: Vital Signs Temp Pulse Resp BP Pulse Ox 36.4 C 63 16 105/64 92 04/12/18 10:58 04/12/18 10:58 04/12/18 10:58 04/12/18 10:58 04/12/18 10:58 Microbiology 04/10/18 12:29 Gram Stain - Final Foot - Eswab 04/07/18 18:10 Blood Panel (PCR) - Final Blood No Organism Detected Laboratory Results 04/12/18 05:40 04/11/18 05:34 04/11/18 04/12/18 04/13/18 05:59 05:59 05:59 Intake Total 1450 1525 Output Total 450 750 200 Balance 1000 775 -200 PT 16.0 SEC (12.0-15.0) H 04/07/18 18:10 INR 1.26 (0.83-1.16) H 04/07/18 18:10 ICD10 Worksheet Patient Problems: Problems Problem Status Onset Cellulitis of right foot Acute Febrile illness, acute Acute
--- NOTE | 2018-04-12 16:03 | ASMTCMCOM ---
CM Note CM Note Notes: Pt is s/p R BKA. PT/OT recommending Inpt Rehab. Order requested and message left for Malina at [facility]. CM will continue to follow. Date Signed: 04/12/2018 04:02 PM Electronically Signed By:EMMANUEL Bolaños
[2018-04-12] MEDS: MELATONIN 3 MG TAB PO SCH (20:14)
[2018-04-13] MEDS: oxyCODONE IR 5 MG TAB PO PRN ×2 (02:00→23:31)
[2018-04-13] MEDS: SENNOSIDES/DOCUSATE SODIUM TAB PO SCH ×2 (09:14→21:29)
[2018-04-13] MEDS: FLUCONAZOLE 100 MG TAB PO SCH (09:15)
[2018-04-13] MEDS: ATORVASTATIN CALCIUM 10 MG TAB PO SCH (09:15)
--- NOTE | 2018-04-13 11:08 | SOAPPROG ---
SOAP Progress Note Assessment/Plan: Assessment: s/p R BKA for chronic wounds Doing well Continue incisional wound vac Inpatient rehab S: No complaints O: Stump is less swollen today. Dressing intact CTAB RRR Plan: 04/12/18 14:05 04/13/18 11:07 Objective: Vital Signs Temp Pulse Resp BP Pulse Ox 36.3 C 76 16 106/62 87 L 04/13/18 07:55 04/13/18 07:55 04/13/18 07:55 04/13/18 07:55 04/13/18 10:00 Microbiology 04/07/18 18:10 Blood Panel (PCR) - Final Blood No Organism Detected 04/07/18 18:10 Blood Culture - Final Blood 04/10/18 12:29 Gram Stain - Final Foot - Eswab Laboratory Results 04/13/18 05:20 04/11/18 05:34 04/12/18 04/13/18 04/14/18 05:59 05:59 05:59 Intake Total 1525 250 Output Total 750 1000 500 Balance 775 -750 -500 PT 16.0 SEC (12.0-15.0) H 04/07/18 18:10 INR 1.26 (0.83-1.16) H 04/07/18 18:10 ICD10 Worksheet Patient Problems: Problems Problem Status Onset Cellulitis of right foot Acute Febrile illness, acute Acute
--- NOTE | 2018-04-13 12:21 | HOSPPROG ---
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 *RLE abscess w osteomyelitis: off abx *s/p R BKA: post op care per surgery *CKD stage 3, at baseline -baseline creat is 1.4-1.6 *RLE edema -had an ultrasound in january which showed no DVT *neuropathy -A1C is minimally elevated *HTN -cont to hold thiazide diuretic given soft BP *renal insufficiency -follow/ at baseline *Acute on chronic anemia, post op anemia -Hgb has trended down slightly. If further drop, will consider transfusion. will recheck tomorrow. *07/04 bottles with yeast: -clinically doing well -No need for Endophthalmitus testing per ID -s/p PICC line removal -on Fluconazole daily x 2 weeks -repeat testing is c/w clearing *Hypoxemia, 2 L O2, cont with IS which he has not been using Plan: post op care pain mgmt BP mgt per above Antifungal per above Subjective: no overnight events. no cp or sob. no n/v Objective: Vital Signs Temp Pulse Resp BP Pulse Ox 36.3 C 76 16 106/62 87 L 04/13/18 07:55 04/13/18 07:55 04/13/18 07:55 04/13/18 07:55 04/13/18 10:00 Microbiology 04/07/18 18:10 Blood Panel (PCR) - Final Blood No Organism Detected 04/07/18 18:10 Blood Culture - Final Blood 04/10/18 12:29 Gram Stain - Final Foot - Eswab Laboratory Results 04/13/18 05:20 04/11/18 05:34 04/12/18 04/13/18 04/14/18 05:59 05:59 05:59 Intake Total 1525 250 Output Total 750 1000 500 Balance 775 -750 -500 PT 16.0 SEC (12.0-15.0) H 04/07/18 18:10 INR 1.26 (0.83-1.16) H 04/07/18 18:10 - Physical Exam Constitutional: no apparent distress Eyes: PERRL Ears, Nose, Mouth, Throat: moist mucous membranes, hearing normal Cardiovascular: regular rate and rhythym Respiratory: no respiratory distress, no rales or rhonchi, clear to auscultation Gastrointestinal: normoactive bowel sounds, soft, non-tender abdomen Skin: warm Neurologic: AAOx3 Psychiatric: interacting appropriately, not anxious, not encephalopathic Lymph, Heme, Immunologic: No petechiae ICD10 Worksheet Patient Problems: Problems Problem Status Onset Cellulitis of right foot Acute Febrile illness, acute Acute
[2018-04-13] MEDS: MELATONIN 3 MG TAB PO SCH (21:29)
[2018-04-14 05:48] LABS: PLATELET COUNT 357 10^3/uL (150-400)
[2018-04-14] MEDS: SENNOSIDES/DOCUSATE SODIUM TAB PO SCH ×3 (08:13→21:11)
[2018-04-14] MEDS: ATORVASTATIN CALCIUM 10 MG TAB PO SCH (08:14)
[2018-04-14] MEDS: FLUCONAZOLE 100 MG TAB PO SCH (08:14)
--- NOTE | 2018-04-14 13:16 | HOSPPROG ---
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 *RLE abscess w osteomyelitis: off abx -s/p R BKA: post op care per surgery -wound vac in place *CKD stage 3, at baseline -baseline creat is 1.4-1.6 *RLE edema -had an ultrasound in january which showed no DVT *neuropathy -A1C is minimally elevated *HTN -cont to hold thiazide diuretic - his bp is starting to improve *renal insufficiency -follow/ at baseline *Acute on chronic anemia, post op anemia -Hgb has trended down slightly, but improved today *07/04 bottles with yeast: -clinically doing well -No need for Endophthalmitises testing per ID -s/p PICC line removal -on Fluconazole daily x 2 weeks -repeat testing is c/w clearing *Hypoxemia,1.5 L O2, cont with IS which he has not been using -87% on room air *Plan: if ok with surgery, will dc tomorrow to IP rehab Subjective: Aris is not c/o pain; feeling well and looking forward to rehab. Objective: Vital Signs Temp Pulse Resp BP Pulse Ox 36.5 C 73 18 112/72 96 04/14/18 09:00 04/14/18 09:00 04/14/18 09:00 04/14/18 09:00 04/14/18 09:00 Laboratory Results 04/14/18 05:36 04/11/18 05:34 04/13/18 04/14/18 04/15/18 05:59 05:59 05:59 Intake Total 250 500 Output Total 1000 850 200 Balance -750 -350 -200 PT 16.0 SEC (12.0-15.0) H 04/07/18 18:10 INR 1.26 (0.83-1.16) H 04/07/18 18:10 - Physical Exam Constitutional: no apparent distress, appears nourished, not in pain Eyes: PERRL Ears, Nose, Mouth, Throat: hearing normal Cardiovascular: regular rate and rhythym Respiratory: no respiratory distress Gastrointestinal: normoactive bowel sounds Skin: warm Musculoskeletal: generalized weakness, other (s/p BKA on r, has dressing in place) Neurologic: AAOx3 Psychiatric: interacting appropriately ICD10 Worksheet Patient Problems: Problems Problem Status Onset Cellulitis of right foot Acute Febrile illness, acute Acute
--- NOTE | 2018-04-14 13:59 | ASMTCMCOM ---
CM Note CM Note Notes: CM spoke to Marguerite Chapin NP regarding d/c POC. CM met w/ pt for dispo planning. Pt is agreeable to going to [facility] inpatient rehab. Malina Winston will start obtaining auth. CM to follow. Plan: [facility] Inpatient Rehab Date Signed: 04/14/2018 01:59 PM Electronically Signed By:MAYRA Arias
--- NOTE | 2018-04-14 16:22 | SOAPPROG ---
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 Plan: 04/11/18 12:51 04/14/18 16:21 Subjective: denies pain, wants to go home Objective: Vital Signs Temp Pulse Resp BP Pulse Ox 36.5 C 73 18 112/72 96 04/14/18 09:00 04/14/18 09:00 04/14/18 09:00 04/14/18 09:00 04/14/18 09:00 Microbiology 04/10/18 12:29 Gram Stain - Final Foot - Eswab Laboratory Results 04/14/18 05:36 04/11/18 05:34 04/13/18 04/14/18 04/15/18 05:59 05:59 05:59 Intake Total 250 500 500 Output Total 1000 850 200 Balance -750 -350 300 PT 16.0 SEC (12.0-15.0) H 04/07/18 18:10 INR 1.26 (0.83-1.16) H 04/07/18 18:10 ICD10 Worksheet Patient Problems: Problems Problem Status Onset Cellulitis of right foot Acute Febrile illness, acute Acute
[2018-04-14] MEDS: oxyCODONE IR 5 MG TAB PO PRN (18:26)
[2018-04-14] MEDS: MELATONIN 3 MG TAB PO SCH (20:57)
[2018-04-15] MEDS: oxyCODONE IR 5 MG TAB PO PRN ×2 (01:17→21:01)
[2018-04-15] MEDS: FLUCONAZOLE 100 MG TAB PO SCH (08:21)
[2018-04-15] MEDS: ATORVASTATIN CALCIUM 10 MG TAB PO SCH (08:21)
[2018-04-15] MEDS: SENNOSIDES/DOCUSATE SODIUM TAB PO SCH ×2 (08:21→20:54)
--- NOTE | 2018-04-15 08:53 | HOSPPROG ---
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 *RLE abscess w osteomyelitis: off abx -s/p R BKA: post op care per surgery -wound vac removed today-wound has some minimal serous drainage *CKD stage 3, at baseline -baseline creat is 1.4-1.6 *RLE edema -had an ultrasound in january which showed no DVT *neuropathy -A1C is minimally elevated *HTN -cont to hold thiazide diuretic - his bp is starting to improve *renal insufficiency -follow/ at baseline *Acute on chronic anemia, post op anemia -Hgb has trended down slightly, but improved today *07/04 bottles with yeast: -clinically doing well -No need for Endophthalmitises testing per ID -s/p PICC line removal -on Fluconazole daily x 2 weeks -repeat testing is c/w clearing *Hypoxemia,1.5 L O2, cont with IS which he has not been using -87% on room air *Plan: dc today Subjective: Aris is anxious for dc. Looking forward to rehab. Objective: Vital Signs Temp Pulse Resp BP Pulse Ox 36.8 C 77 16 113/70 96 04/15/18 08:11 04/15/18 08:11 04/15/18 08:11 04/15/18 08:11 04/15/18 08:11 Microbiology 04/09/18 16:30 Blood Culture - Final Blood 04/09/18 16:14 Blood Culture - Final Blood 04/10/18 12:29 Gram Stain - Final Foot - Eswab Laboratory Results 04/14/18 05:36 04/11/18 05:34 04/14/18 04/15/18 04/16/18 05:59 05:59 05:59 Intake Total 500 500 Output Total 850 201 Balance -350 299 PT 16.0 SEC (12.0-15.0) H 04/07/18 18:10 INR 1.26 (0.83-1.16) H 04/07/18 18:10 - Physical Exam Constitutional: no apparent distress, appears nourished, not in pain Eyes: PERRL Ears, Nose, Mouth, Throat: hearing normal Respiratory: no respiratory distress Skin: other (right stump area with some swelling, wound has some serous draingage, edges well approximated) Musculoskeletal: generalized weakness Neurologic: AAOx3 Psychiatric: interacting appropriately ICD10 Worksheet Patient Problems: Problems Problem Status Onset Cellulitis of right foot Acute Febrile illness, acute Acute
--- NOTE | 2018-04-15 08:59 | PDIAF ---
- Diagnosis Diagnosis: RLE abscess and osteo s/p BKA, CKD, hypotension Code Status: Full Code - Medication Management Discharge Medications: Medications to Continue on Transfer Chlorthalidone [Chlorthalidone 25 mg (*)] 25 mg PO DAILY 01/27/18 [Last Taken 08:00] Simvastatin 20 mg PO DAILY 01/27/18 [Last Taken 04/07/18 08:00] Acetaminophen [Tylenol 325mg (*)] 650 mg PO Q4HRS PRN tab 04/15/18 [Last Taken Unknown] Fluconazole [Diflucan (*)] 200 mg PO DAILY 8 Days tab 04/15/18 [Last Taken Unknown] Melatonin [Melatonin 3 MG (*)] 6 mg PO HS tab 04/15/18 [Last Taken Unknown] Polyethylene Glycol 3350 [Miralax 17 gm (*)] 17 gm PO DAILY PRN pkt 04/15/18 [ Last Taken Unknown] Sennosides/Docusate Sodium [Senokot-S] 1 - 2 tab PO BID tab 04/15/18 [Last Taken Unknown] oxyCODONE IR [Oxycodone Ir (*)] 5 - 10 mg PO Q3HRS PRN tab 04/15/18 [Last Taken Unknown] Discharge Medications: Refer to the Discharge Home Medication list for PRN reason. 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 blood pressure medication has been on hold due to some hypotension, can resume once systolic bp is consistently >120 Stop Diflucan on 04/23/18 - Labs/Radiology BMP Date: 04/19/18 (prn) HCT/HGB Date: 04/09/18 - Follow Up Care Current Providers and Referrals: Doctor Julio,On Staff, MD [Primary Care Provider] - Omer Alanis MD [Medical Doctor] - (1 week for wound eval)
--- NOTE | 2018-04-15 09:24 | GDS ---
DISCHARGE DIAGNOSES: 1. Right lower extremity abscess with osteomyelitis, status post right below-knee amputation. 2. Chronic kidney disease, stage 3. 3. Right lower extremity edema. 4. Neuropathy. 5. Hypertension. 6. Renal insufficiency. 7. Acute on chronic anemia. 8. Hypoxemia. 9. Yeast in 1 blood culture. CONSULTATIONS: 1. Dr. Omer Alanis. 2. Dr. Lupillo Ocampo. HISTORY OF PRESENT ILLNESS: Briefly, the patient is an 87-year-old gentleman who was admitted for os teomyelitis of his right foot with development of abscess and plantar ulcerations penetrating to the bone. The cultures had no growth. He was initially treated with ertapenem. Because of the poor hea ling and chronic chronicity of his right lower extremity wound and the osteomyelitis, he had a BKA. At that time, antibiotics were stopped. In addition, he grew yeast in 1/4 bottles. He is being tia mireya with fluconazole for a total of 2 weeks. Today, he will be discharged to inpatient rehab for car e. HOSPITAL COURSE: 1. Right lower extremity abscess with osteomyelitis. He is status post BKA. Wound VAC was removed today. 2. Chronic kidney disease, stage 3. He is at his baseline. 3. Right lower extremity edema. He had an ultrasound in January, which showed no DVT. 4. Neuropathy. A1c is minimally elevated. 5. Hypertension. He has had some low blood pressure. His diuretic has been held. 6. Renal insufficiency. 7. Acute on chronic anemia, overall stable. 8. 1/4 bottles with yeast. Clinically doing well. He will be on fluconazole daily for a total of 2 weeks. 9. Hypoxemia. His oxygen levels are improving with coughing and deep breathing. DISCHARGE CONDITION: Stable. Blood pressure is 113/70, heart rate is 77, respiratory rate is 16, O2 sats on room air 96%, temperature is 36.8 Celsius. DISCHARGE MEDICATIONS: Please see the EMR. DISCHARGE INSTRUCTIONS/FOLLOWUP: 1. Discharge instructions have been written out in detail as far as wound care. 2. If he develops fever, chills, chest pain, or shortness of breath, return to the ER. Greater than 30 minutes discharging and coordinating the patient's care. /[id number]/MODL
--- NOTE | 2018-04-15 09:41 | SOAPPROG ---
SOAP Progress Note Assessment/Plan: Assessment: 87yo M s/p R BKA for osteomyelitis and infection - VSS, HDS - pain minimal - VAC taken down, incision looks great. Re-dressed with gauze - ok to shower - needs to wear protector at all times. - ok to dc to inpt rehab today Plan: 04/11/18 12:51 04/14/18 16:21 04/15/18 09:41 Subjective: feels well, denies pain Objective: Vital Signs Temp Pulse Resp BP Pulse Ox 36.8 C 77 16 113/70 96 04/15/18 08:11 04/15/18 08:11 04/15/18 08:11 04/15/18 08:11 04/15/18 08:11 Microbiology 04/09/18 16:30 Blood Culture - Final Blood 04/09/18 16:14 Blood Culture - Final Blood 04/10/18 12:29 Gram Stain - Final Foot - Eswab Laboratory Results 04/14/18 05:36 04/11/18 05:34 04/14/18 04/15/18 04/16/18 05:59 05:59 05:59 Intake Total 500 500 Output Total 850 201 Balance -350 299 PT 16.0 SEC (12.0-15.0) H 04/07/18 18:10 INR 1.26 (0.83-1.16) H 04/07/18 18:10 ICD10 Worksheet Patient Problems: Problems Problem Status Onset Cellulitis of right foot Acute Febrile illness, acute Acute
--- NOTE | 2018-04-15 15:01 | ASMTCMCOM ---
CM Note CM Note Notes: CM spoke to Marguerite Chapin NP and Dr. Alanis. Pt is medically stable to d/c today. CM waiting on auth from Duyen Dixon. CM spoke to pts son Adal and updated him (P#: [phone]). CM to follow. Plan: Inpatient Rehab Date Signed: 04/15/2018 03:00 PM Electronically Signed By:MAYRA Arias
[2018-04-15] MEDS: MELATONIN 3 MG TAB PO SCH (20:50)
[2018-04-16] MEDS: FLUCONAZOLE 100 MG TAB PO SCH (07:44)
[2018-04-16] MEDS: SENNOSIDES/DOCUSATE SODIUM TAB PO SCH (07:45)
[2018-04-16] MEDS: ATORVASTATIN CALCIUM 10 MG TAB PO SCH (07:45)
[2018-04-16 08:58] VITALS: BP 118/67
--- NOTE | 2018-04-16 11:20 | ASMTLACE ---
LACE Length of stay for Answers: 7-13 days current admission Acuity / Level of Answers: Yes Care: Did the patient have an inpatient admission? Comorbidities - select Answers: Moderate or severe liver all that apply or renal disease Other Notes: HTN; HLD; Chronic neuropathy # of Emergency department Answers: 1-2 visits in the last 6 months Score: 14 Date Signed: 04/16/2018 11:20 AM Electronically Signed By:MAYRA Arias
--- NOTE | 2018-04-16 11:30 | HOSPPROG ---
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 *RLE abscess w osteomyelitis: off abx -s/p R BKA: post op care per surgery -wound vac removed today-wound has some minimal serous drainage *CKD stage 3, at baseline -baseline creat is 1.4-1.6 *RLE edema -had an ultrasound in january which showed no DVT *neuropathy -A1C is minimally elevated *HTN -cont to hold thiazide diuretic - his bp is starting to improve *renal insufficiency -follow/ at baseline *Acute on chronic anemia, post op anemia -Hgb has trended down slightly, but improved today *07/04 bottles with yeast: -clinically doing well -No need for Endophthalmitises testing per ID -s/p PICC line removal -on Fluconazole daily x 2 weeks -repeat testing is c/w clearing *Hypoxemia,1.5 L O2, cont with IS which he has not been using -87% on room air *Plan: dc today Subjective: Aris has no complaints, says it's been a bit hard without use of his rle Objective: Vital Signs Temp Pulse Resp BP Pulse Ox 36.3 C 66 14 118/67 94 04/16/18 08:55 04/16/18 08:55 04/16/18 08:55 04/16/18 08:55 04/16/18 08:55 Microbiology 04/07/18 18:10 Blood Culture - Final Blood Helen Lusitaniae Blood Panel (PCR) - Final No Organism Detected 04/10/18 12:29 Gram Stain - Final Foot - Eswab Laboratory Results 04/14/18 05:36 04/11/18 05:34 04/15/18 04/16/18 04/17/18 05:59 05:59 05:59 Intake Total 500 Output Total 201 Balance 299 PT 16.0 SEC (12.0-15.0) H 04/07/18 18:10 INR 1.26 (0.83-1.16) H 04/07/18 18:10 - Physical Exam Constitutional: no apparent distress, appears nourished, not in pain Eyes: PERRL Ears, Nose, Mouth, Throat: hearing normal Respiratory: no respiratory distress Skin: warm Neurologic: AAOx3 Psychiatric: interacting appropriately ICD10 Worksheet Patient Problems: Problems Problem Status Onset Cellulitis of right foot Acute Febrile illness, acute Acute
--- NOTE | 2018-04-16 11:39 | ASMTDCNOTE ---
Case Management Discharge Discharge Order Complete? Answers: Yes Patient to Obtain Answers: Other Notes: [facility] Inpatient Rehab Medications Transportation Arranged Answers: [facility] Stretcher Transport will Pick (Date 04/16/2018 12:30 PM & Time) EMTALA Complete Answers: No Case Management Transport Answers: Yes Notes: PCS form completed and a Form Complete copy is in pts chart Faxed Final Orders Answers: Yes Agency/Facility Transfer Answers: Yes Report Printed & Faxed to Receiving Agency Family Notified Answers: Yes Discharge Comments Notes: CM spoke to Malina Winston at [facility] inpatient rehab. Duyen Dixon has given auth for pt to come today. CM set up transportation through [facility]. Pt is a 2 person assist and requires a [employer], per PT. PT is also recommending that pt is transported in a stretcher. CM notified pts son of the d/c. CM provided SARAH Feldman w/ phone number to give report. CM available for changes. Plan: [facility] Inpatient Rehab Date Signed: 04/16/2018 11:39 AM Electronically Signed By:MAYRA Arias
== END 2018-04-16 12:50 | DRG 475 ==
LOC: F3E 16:49 → OBSVTOIN 17:30
PROVIDERS: ADMIT Internal Medicine; ATTEND Internal Medicine
PROC: 0Y6H0Z1 Detachment at Right Lower Leg, High, Open Approach (ICD-10-PCS; principal; 2018-04-10 12:00)
DX: M86.171 Other acute osteomyelitis, right ankle and foot (principal); L97.316 Non-pressure chronic ulcer of right ankle with bone involvement without evidence of necrosis; B37.89 Other sites of candidiasis; D64.9 Anemia, unspecified; R09.02 Hypoxemia; I12.9 Hypertensive chronic kidney disease with stage 1 through stage 4 chronic kidney disease, or unspecified chronic kidney disease; N18.3 Chronic kidney disease, stage 3 (moderate); G62.9 Polyneuropathy, unspecified; E78.5 Hyperlipidemia, unspecified; G54.6 Phantom limb syndrome with pain; I71.4 Abdominal aortic aneurysm, without rupture; Z96.641 Presence of right artificial hip joint; Z96.611 Presence of right artificial shoulder joint; Z89.421 Acquired absence of other right toe(s)
CPT/HCPCS: 87186-90; 97161-GP; 97164-GP; 97165-GO; 97168-GO; 97530-GO; 97530-GP; 97535-GO; G8978-GP-CJ; G8978-GP-CM; G8979-GP-CI; G8979-GP-CJ; G8984-GO-CJ; G8985-GO-CI; G8987-GO-CM; G8988-GO-CK; J1100; J1170; J1335; J2248; J2405; J2704; J2795; J3010; Q4131

== ENCOUNTER 2018-04-16 12:51 | Inpatient (IN) | payer OTHER ==
[2018-04-16] MEDS ORDERED: POLYETHYLENE GLYCOL 3350 17 GM PKT PO PRN (14:22)
--- NOTE | 2018-04-16 15:02 | GHP ---
POST ADMISSION PHYSICIAN EVALUATION AND REHABILITATION TREATMENT PLAN DATE OF ADMISSION: 04/16/2018 DATE OF EVALUATION: 04/16/2018 TIME OF EVALUATION: 1315 REFERRING FACILITY: [facility]. REFERRING PHYSICIAN: Dr. Lim IMPAIRMENT GROUP: 5.4. DATE OF ONSET: 04/07/2018 CONSULTING PHYSICIANS: He was seen in consultation by Surgery, Dr. Alanis and Infectious Disease, Dr. Ocampo. REHABILITATION DIAGNOSIS: Debility status post right hiymc-gtr-rlbo amputation. ETIOLOGIC DIAGNOSIS: Unilateral lower limb [id number]-[id number]-dvbm. DATE OF SURGERY: 04/10/2018 HISTORY OF PRESENT ILLNESS: This patient has had chronic wound to the right foot for several months. He reports that it began as a blister and later became infected. He had transmetatarsal amputations x2 of the 1st metatarsal but subsequently developed drainage and swelling. He was admitted to [facility] on 04/07/2018, from the wound care clinic for adjustment of IV antibiotics and for amputation. He underwent a right below -the-knee amputation on 04/10/2018, for osteomyelitis and worsening wound infection. He had a wound VAC placed postoperatively. After the surgery, he had pain, anemia, hypoxemia, and hypotension. Wound VAC was removed on 2017. STUDIES AND LABS DURING HIS HOSPITALIZATION: He had anemia on the day of admission with hemoglobin of 9.9 and hematocrit of 31. This worsened postsurgically with a isaias of hemoglobin 7.7 and hematocrit of 25.4 and then improved. On 04/14/2018, hemoglobin was 8.5 and hematocrit was 27.5. Coagulation studies revealed a slightly elevated INR at 1.26. Otherwise, prothrombin time was normal. Serum chemistry revealed renal insufficiency consistent with his baseline. On 04/11/2018, creatinine was 1.6 and estimated GFR was 41. Otherwise, renal function and electrolytes were overall within normal limits. He had an elevated BUN of 37, suggesting that he may have had some dehydration. His blood sugars were elevated. On 04/11/2018, blood sugar was 164. Hemoglobin A1c was 6.1, so there was no indication for medications for diabetes. Liver function tests were normal on 04/10/2018. LDL cholesterol was low at 44 on 04/08/2018. CPK was tested as he was treated with fluconazole and there was an interaction with atorvastatin, and it was normal at 115. He had blood cultures and grew Helen lusitaniae. He had a foot swab which grew Corynebacterium striatum. PRECAUTIONS: He is a fall risk. ACTIVE COMORBIDITIES: He has no active tier 1, tier 2, or tier 3 comorbidities. PAST MEDICAL HISTORY: 1. Chronic renal insufficiency. 2. Hypertension. 3. Dyslipidemia. 4. Peripheral neuropathy. 5. Ascending aortic aneurysm of 5.3 cm. 6. Chronic right foot infections. PAST SURGICAL HISTORY: 1. Right foot transmetatarsal amputations x2. 2. Joint replacements bilaterally in the knees, the right hip, and the right shoulder. 3. He has had a prostate procedure. PRE-HOSPITAL MEDICATIONS: 1. Chlorthalidone 25 mg p.o. daily. 2. Simvastatin 20 mg p.o. daily. ALLERGIES: Listed to amoxicillin and to cephalexin. Cephalexin caused a rash. PSYCHOSOCIAL HISTORY: He is . He lives with his . He has an adult son in the area. 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 He has a remote smoking history but does not currently smoke. REVIEW OF SYSTEMS: He has some pain at the incision at night when he lies down to sleep, for which he occasionally is using oxycodone. He has not needed any oxycodone today. He denies fevers or chills, cough, shortness of breath, chest pain, palpitations, nausea, vomiting, constipation, diarrhea, or dysuria. He has urinary frequency and urinates approximately q.2 hours. He denies joint pain or joint swelling. He is sleeping well. Otherwise, a 10-point review of systems is negative. PHYSICAL EXAMINATION: VITAL SIGNS: Vital signs are not yet available in the chart. This morning in the hospital, blood pressure was 118/67, heart rate was 66, respiratory rate was 14, oxygen saturation was 94% on room air, temperature was 36.3 degrees centigrade. CONSTITUTIONAL: His weight was 84.4 kg, for a body mass index of 26.7. GENERAL: This is a well-nourished, well-developed, elderly man in bed in street clothes. Cooperative and in no acute distress. HEENT: Extraocular movements are intact. Pupils are equal, round, and reactive to light. Mucous membranes are moist. Dentition is in good condition. He has an uncrowded airway, Mallampati class I. NECK: Supple. There is JVD approximately custodial from the clavicle to the mandible. HEART: There is an irregular rhythm. There are no murmurs, rubs, or gallops. He is not tachycardic. LUNGS: Clear to auscultation bilaterally. ABDOMEN: Soft, nontender, nondistended with normoactive bowel sounds and no hepatosplenomegaly. EXTREMITIES: There is a right lplfu-nmu-aovv amputation. The left lower leg is without edema. Radial pulses are 2+ bilaterally. Pedal pulses are absent to possibly trace pedal pulse at the left dorsalis pedis artery. NEUROLOGIC: He is alert and oriented x3. Cranial nerves 2 through 12 are grossly intact. There is no focal weakness. Sensation is generally intact to light touch. It was not specifically tested regarding neuropathy in the left lower extremity. CURRENT LEVEL OF FUNCTION PER THE PREADMISSION SCREEN: He was on a regular diet with thin liquids. For grooming, he required standby assist with setup, sitting in a chair. Bathing required moderate assist, seated in a chair. Dressing required standby assist, seated in a chair, to don and doff the left sock. He was continent of bowel and bladder. He transferred with maximal assist of two using a Tamara Stedy, and he needed minimal to moderate assistance with voice cues and front-wheeled walker. Seated balance required minimal assist. Standing balance required minimal to moderate assist and voice cues. Endurance was fair. On the current exam, there are no significant changes from the preadmission screen. IMPRESSION: This is an 87-year-old man, who likely has peripheral vascular disease, who developed a right foot blister which led to an infection. He had undergone transmetatarsal amputations of the 1st metatarsal x2 and had ongoing care at the wound care clinic when he developed worsening erythema, swelling, and drainage of the right foot. He was diagnosed with osteomyelitis and underwent a right fvwts-zyc-rfxw amputation. During his hospitalization, he also had a positive blood culture for Helen lusitaniae, for which he was treated with fluconazole. He had had a low blood pressure, and antihypertensive medications were held. He had pain, which was adequately controlled with occasional oxycodone. He had anemia and hypoxemia postoperatively. A wound vacuum-assisted closure was placed and then removed. He is appropriate for inpatient rehabilitation. His goal is to complete a rehabilitation stay and then return home with his family and supportive services. For a safe discharge, it is anticipated that he will achieve a modified independent level for grooming, dressing, toileting, bed mobility, and transfers using a front-wheeled walker to a chair. He may require minimal assist for bathing for safety. He will ambulate for short distances with a front-wheeled walker and use crutches to negotiate stairs safely. He will be independent with wheelchair management and may use the wheelchair for community outings and community distances. He will need to have pain adequately controlled, and his incision will need to be healing well. He will have therapy with Physical Therapy and Occupational Therapy for 90 minutes per day for each discipline on 5-7 days of the week. His expected duration of stay is 7-10 days. It is expected that upon discharge he will continue to benefit from home health services including nursing, occupational therapy, and physical therapy as well as an outpatient amputation support group. PLAN: 1. Debility with particular deficits to transfers and mobility following right rejkt-lzv-zjfo amputation. PT and OT to optimize mobility and activities of daily living to the modified independent level, though he may continue to require assistance for bathing. 2. Wound care per hospital discharge. The igncc-dxv-jnbo amputation dressing is to be changed daily, covered with dry gauze and tape. A wound protector and underlying hydroelectric plant mechanical engineer sock should be worn at all times. 3. Hypertension. Will resume blood pressure medications of chlorthalidone 25 mg daily. Will monitor blood pressure and adjust medications as needed. 4. Dyslipidemia. He was treated with simvastatin, and this will be continued. 5. Likely peripheral vascular disease as well as ascending aortic aneurysm. He had a chest CT done on a prior admission in December of this year, which showed coronary calcifications, so he likely has coronary artery disease as well. Continue prevention measures with blood pressure control and lipid control. 6. Irregular heartbeat. Will get an EKG today to evaluate for atrial fibrillation. 7. Positive blood culture for Helen. He is on fluconazole, and this will be continued until 04/23/2018. 8. Postoperative anemia has been improving. There may be a component of anemia of chronic disease as he had anemia when he was admitted to the hospital. Will recheck CBC in the morning to ensure that his blood counts continue to improve. 9. Chronic renal insufficiency, stage 3. Recheck a basic metabolic panel in the morning to monitor his renal function. 10. Pain management. He reports that due to his peripheral neuropathy he has little pain, but at night when he goes to bed, he feels pain. Continue oxycodone 5-10 mg q.3 hours p.r.n. 11. Prophylaxis. Per literature review, it is unclear whether he needs pharmacologic prophylaxis. He was not receiving anticoagulation during his hospital stay. Will revisit this question and consider anticoagulation depending on his progress with mobility. /[id number]/MODL MTDD
[2018-04-16] MEDS: SENNOSIDES/DOCUSATE SODIUM TAB PO SCH (19:49)
[2018-04-16] MEDS: MELATONIN 3 MG TAB PO SCH (20:55)
[2018-04-17] MEDS: FLUCONAZOLE 100 MG TAB PO SCH (08:19)
[2018-04-17] MEDS: CHLORTHALIDONE 25 MG TAB PO SCH (08:19)
[2018-04-17] MEDS: ATORVASTATIN CALCIUM 10 MG TAB PO SCH (08:19)
[2018-04-17] MEDS: SENNOSIDES/DOCUSATE SODIUM TAB PO SCH ×2 (08:29→21:12)
[2018-04-17 09:05] LABS: PLATELET COUNT 435 10^3/uL (150-400)
--- NOTE | 2018-04-17 11:32 | SOAPPROG ---
SOAP Progress Note Assessment/Plan: Assessment: Debility with particular deficits to transfers and mobility following right dwcji-ygt-xbmn amputation. PT and OT to optimize mobility and activities of daily living to the modified independent level, though he may continue to require assistance for bathing. Wound care per hospital discharge. The kuvmy-cmy-ercz amputation dressing is to be changed daily, covered with dry gauze and tape. A wound protector and underlying final rail cutter sock should be worn at all times. * Wound examined on the day of admission. Well approximated, sutures intact, no erythema or drainage. 1/2 cm flat blister superior to the medial and of the wound. * Follow-up with surgeon Dr. Alanis 7 days after hospital discharge, 2017. If wound is healing well and patient is to remain on rehabilitation, will discuss with Dr. Alejandra emanuel whether follow-up visit can be postponed until after discharge. Hypertension. Will resume blood pressure medications of chlorthalidone 25 mg daily. Will monitor blood pressure and adjust medications as needed. Dyslipidemia. He was treated with simvastatin, and this will be continued. Cardiac dysrhythmia. * EKG 04/16/2018 shows 1st degree AV block and occasional premature atrial complexes. Likely peripheral vascular disease as well as ascending aortic aneurysm. He had a chest CT done on a prior admission in December of this year, which showed coronary calcifications, so he likely has coronary artery disease as well. Continue prevention measures with blood pressure control and lipid control. * Should have surveillance CT of aortic aneurysm Q 6 months (next study would be July or August of 2018). * Beta-jared, KEMI inhibitor or angiotensin receptor jared would be first- line therapy to prevent expansion of aneurysm but beta-jared is relatively contraindicated with first-degree AV block. Consider changing from chlorthalidone to KEMI inhibitor or ARB. Goal systolic blood pressure is between 105 in 120 mm Hg. Positive blood culture for Helen. He is on fluconazole, and this will be continued until 04/23/2018. Postoperative anemia. Continues to improve on and CBC 04/17/2018, with hemoglobin 9.2 and hematocrit 29.7. Normal MCV; will not check iron panel.. Chronic renal insufficiency, stage 3. Renal function stable on BMP 04/17/2018. Pain management. He reports that due to his peripheral neuropathy he has little pain, but at night when he goes to bed, he feels pain. Continue oxycodone 5-10 mg q.3 hours p.r.n. and acetaminophen as needed. Not used in his 1st day on the rehabilitation unit. Prophylaxis. Per literature review, it is unclear whether would benefit from pharmacologic prophylaxis. He was not receiving anticoagulation during his hospital stay. Will revisit this question and consider anticoagulation depending on his progress with mobility. 04/17/18 13:25 Subjective: No complaints. Slept well. Not in pain. No cough or dyspnea, no fevers or chills. Bowels moving. Objective: Vital Signs Temp Pulse Resp BP Pulse Ox 36.4 C 68 18 114/81 H 91 L 04/17/18 05:54 04/17/18 05:54 04/17/18 05:54 04/17/18 08:19 04/17/18 05:54 Laboratory Results 04/17/18 05:50 04/17/18 05:50 04/16/18 04/17/18 04/18/18 05:59 05:59 05:59 Intake Total 250 360 Output Total 1 Balance 249 360 Physical Exam - Physical Exam General Appearance: WD/WN, alert, no apparent distress Respiratory: normal breath sounds, No crackles, No rhonchi, No wheezing Cardiac/Chest: regular rate, rhythm, No edema, No diastolic murmur, No systolic murmur Skin: normal color, warm/dry Neuro/Psych: alert, normal mood/affect, oriented x 3 ICD10 Worksheet Patient Problems: Problems Problem Status Onset Cellulitis of right foot Acute Febrile illness, acute Acute
--- NOTE | 2018-04-17 12:19 | CPEKG ---
Test Reason : OPEN Blood Pressure : / mmHG Vent. Rate : 072 BPM Atrial Rate : 072 BPM P-R Int : 220 ms QRS Dur : 086 ms QT Int : 368 ms P-R-T Axes : -11 039 -05 degrees QTc Int : 403 ms SINUS RHYTHM ATRIAL PREMATURE COMPLEX FIRST DEGREE AV BLOCK Confirmed by Emile Sheffield [id number] on 04/17/2018 12:19:09 PM Referred By: Confirmed By:Emile Sheffield
[2018-04-17] MEDS: MELATONIN 3 MG TAB PO SCH (21:05)
[2018-04-18] MEDS: ATORVASTATIN CALCIUM 10 MG TAB PO SCH (08:46)
[2018-04-18] MEDS: SENNOSIDES/DOCUSATE SODIUM TAB PO SCH ×2 (08:46→20:00)
[2018-04-18] MEDS: FLUCONAZOLE 100 MG TAB PO SCH (08:47)
[2018-04-18] MEDS: CHLORTHALIDONE 25 MG TAB PO SCH (10:45)
--- NOTE | 2018-04-18 11:27 | SOAPPROG ---
SOAP Progress Note Assessment/Plan: Assessment: Debility with particular deficits to transfers and mobility following right mizyi-jxc-rdci amputation. * Initial functional independence measure 79 on 04/18/2018. Standby assist for bed mobility. Has some mobility limitation due to a left shoulder rotator cuff tear and left shoulder degenerative joint disease. Moderate assistance for slide board transfer. Sit to stand with minimal assist of 2. Approximately 10 sec standing endurance. Given where he is starting he may not be able to progress to a short distance ambulator. Does grooming and hygiene independently from the wheelchair. Upper body dressing requires setup and standby assist. Lower body dressing requires minimal assist. * Continue PT and OT to optimize mobility and activities of daily living to the modified independent level. Wound care per hospital discharge. The pgkzi-eqb-lnhj amputation dressing is to be changed daily, covered with dry gauze and tape. A wound protector and underlying ict analyst sock should be worn at all times. * Wound examined on the day of admission. Well approximated, sutures intact, no erythema or drainage. 1/2 cm flat blister superior to the medial and of the wound. * Follow-up with surgeon Dr. Alanis 7 days after hospital discharge, 2017. If wound is healing well and patient is to remain on rehabilitation, will discuss with Dr. Alejandra emanuel whether follow-up visit can be postponed until after discharge. Cellulitis at incision. Initiate doxycycline 04/18/2018. Texted pictures of wound to surgeons Dr. Brewster and Dr. Alanis [phone]. Continue daily wound dressings and monitoring of response to antibiotics. Hypertension. * Low blood pressure 04/18/2018 after chlorthalidone 25 mg 04/17/2018. DC chlorthalidone and initiate losartan 04/19/2018 at low dose as ARB is indicated over diuretic with ascended aortic aneurysm and for chronic kidney disease with proteinuria. Check BMP 04/21/2018. Likely peripheral vascular disease as well as ascending aortic aneurysm. He had a chest CT done on a prior admission in December of this year, which showed coronary calcifications, so he likely has coronary artery disease as well. Continue prevention measures with blood pressure control and lipid control. * Should have surveillance CT of aortic aneurysm Q 6 months (next study would be July or August of 2018). * Beta-jared, KEMI inhibitor or angiotensin receptor jared would be first- line therapy to prevent expansion of aneurysm but beta-jared is relatively contraindicated with first-degree AV block. Changing from chlorthalidone to ARB , to start 04/19/2018. Goal systolic blood pressure is between 105 in 120 mm Hg. Left foot skin integrity. Scattered tiny eschars and 1 possibly new on left 4th toe. Left message for primary counselor camp Dr. Armstrong , who will be working again on 04/21/2018. Continue skin care per Nursing. Continue to monitor. Positive blood culture for Helen. He is on fluconazole, and this will be continued until 04/23/2018. Postoperative anemia. Continues to improve on and CBC 04/17/2018, with hemoglobin 9.2 and hematocrit 29.7. Normal MCV; will not check iron panel.. Chronic renal insufficiency, stage 3. Renal function stable on BMP 04/17/2018. Pain management. He reports that due to his peripheral neuropathy he has little pain, but at night when he goes to bed, he feels pain. Continue oxycodone 5-10 mg q.3 hours p.r.n. and acetaminophen as needed. Not used in his 1st day on the rehabilitation unit. Dyslipidemia. He was treated with simvastatin, and this will be continued. Cardiac dysrhythmia. * EKG 04/16/2018 shows 1st degree AV block and occasional premature atrial complexes. Prophylaxis. Per literature review, it is unclear whether would benefit from pharmacologic prophylaxis. He was not receiving anticoagulation during his hospital stay. Will revisit this question and consider anticoagulation depending on his progress with mobility. DISPOSITION: Attended staffing, 15 min. Discussed with trimming caser, nursing, dietitian, PT, OT. Lives with his who is unlikely to be able to provide significant physical assistance. Local son is involved in his care. Unclear at present whether short distance ambulation is a reasonable goal. Tentative discharge date set for 05/06/2018. 04/18/18 12:09 Subjective: Complains of pain in his right leg over the baker just proximal to his incision. Otherwise without complaints. Slept well. No cough or dyspnea, no fevers or chills. Describes complex series of [place] involving his left foot with rash and skin breakdown after being given cephalexin for the right foot and gradual healing. Nurse notes a new area of erythema and swelling approximately 2-3 mm on the left 4th toe lateral volar aspect. Objective: Vital Signs Temp Pulse Resp BP Pulse Ox 36.4 C 81 14 109/71 95 04/18/18 07:06 04/18/18 10:45 04/18/18 07:06 04/18/18 10:45 04/18/18 10:45 Laboratory Results 04/17/18 05:50 04/17/18 05:50 04/17/18 04/18/18 04/19/18 05:59 05:59 05:59 Intake Total 250 530 360 Output Total 1 Balance 249 530 360 - Time Spent With Patient Time Spent With Patient: Greater than 35 min floor time today, including more than 50% of time in coordination of care during staffing and in discussion with surgeons Dr. Brewster and Dr. Alanis, and counseling patient. Physical Exam - Physical Exam General Appearance: WD/WN, alert, no apparent distress Respiratory: normal breath sounds, No crackles, No rhonchi, No wheezing Cardiac/Chest: irregularly irregular, No edema, No diastolic murmur, No systolic murmur Peripheral Pulses: 1+: dorsalis-pedis (L) (trace - 1+) Skin: normal color, warm/dry, other (Right residual limb incision with scant drainage central and lateral, serosanguineous, on dressing. Approximately 4 x 4 cm triangular area of erythema and tenderness from incision proximally along baker) Neuro/Psych: alert, normal mood/affect, oriented x 3 ICD10 Worksheet Patient Problems: Problems Problem Status Onset Cellulitis of right foot Acute Febrile illness, acute Acute
[2018-04-18] MEDS: DOXYCYCLINE HYCLATE 100 MG CAP/TAB PO SCH ×2 (11:55→20:00)
[2018-04-18] MEDS: MELATONIN 3 MG TAB PO SCH (20:00)
[2018-04-18] MEDS: oxyCODONE IR 5 MG TAB PO PRN (22:35)
[2018-04-19] MEDS: oxyCODONE IR 5 MG TAB PO PRN ×3 (04:48→18:38)
[2018-04-19] MEDS: ATORVASTATIN CALCIUM 10 MG TAB PO SCH (09:06)
[2018-04-19] MEDS: LOSARTAN POTASSIUM 25 MG TAB PO SCH (09:06)
[2018-04-19] MEDS: SENNOSIDES/DOCUSATE SODIUM TAB PO SCH ×2 (09:07→20:01)
[2018-04-19] MEDS: DOXYCYCLINE HYCLATE 100 MG CAP/TAB PO SCH ×2 (09:07→20:02)
[2018-04-19] MEDS: FLUCONAZOLE 100 MG TAB PO SCH (09:07)
--- NOTE | 2018-04-19 09:09 | SOAPPROG ---
SOAP Progress Note Assessment/Plan: Assessment: Debility with particular deficits to transfers and mobility following right odruf-pwj-dvzz amputation. * Initial functional independence measure 79 on 04/18/2018. Standby assist for bed mobility. Has some mobility limitation due to a left shoulder rotator cuff tear and left shoulder degenerative joint disease. Moderate assistance for slide board transfer. Sit to stand with minimal assist of 2. Approximately 10 sec standing endurance. Given where he is starting he may not be able to progress to a short distance ambulator. Does grooming and hygiene independently from the wheelchair. Upper body dressing requires setup and standby assist. Lower body dressing requires minimal assist. * Continue PT and OT to optimize mobility and activities of daily living to the modified independent level. Wound care per hospital discharge. The guznq-uaz-hagn amputation dressing is to be changed daily, covered with dry gauze and tape. A wound protector and underlying slunk skinner sock should be worn at all times. * Wound examined on the day of admission. Well approximated, sutures intact, no erythema or drainage. 1/2 cm flat blister superior to the medial and of the wound. RIGHT BELOW-KNEE AMPUTATION INCISION SITE INSPECTED THIS MORNING THE ERYTHEMA HAS RESCINDED BELOW THE PREVIOUS LEVEL OF DEMARCATION WITH A SKIN MARKER. NO ERYTHEMA OR INDURATION. * Follow-up with surgeon Dr. Alanis 7 days after hospital discharge, 2017. If wound is healing well and patient is to remain on rehabilitation, will discuss with Dr. Alejandra emanuel whether follow-up visit can be postponed until after discharge. Cellulitis at incision. Initiate doxycycline 04/18/2018. Texted pictures of wound to surgeons Dr. Brewster and Dr. Alanis [phone]. Continue daily wound dressings and monitoring of response to antibiotics. NO DRAINAGE OR ERYTHEMA. Hypertension. * Low blood pressure 04/18/2018 after chlorthalidone 25 mg 04/17/2018. DC chlorthalidone and initiate losartan 04/19/2018 at low dose as ARB is indicated over diuretic with ascended aortic aneurysm and for chronic kidney disease with proteinuria. Check BMP 04/21/2018. Likely peripheral vascular disease as well as ascending aortic aneurysm. He had a chest CT done on a prior admission in December of this year, which showed coronary calcifications, so he likely has coronary artery disease as well. Continue prevention measures with blood pressure control and lipid control. * Should have surveillance CT of aortic aneurysm Q 6 months (next study would be July or August of 2018). * Beta-jared, KEMI inhibitor or angiotensin receptor jared would be first- line therapy to prevent expansion of aneurysm but beta-jared is relatively contraindicated with first-degree AV block. Changing from chlorthalidone to ARB , to start 04/19/2018. Goal systolic blood pressure is between 105 in 120 mm Hg. Left foot skin integrity. NO LESIONS OR ESCHAR. Scattered tiny eschars and 1 possibly new on left 4th toe. Left message for primary echo vascular tech Dr. Armstrong , who will be working again on 04/21/2018. Continue skin care per Nursing. Continue to monitor. Positive blood culture for Helen. He is on fluconazole, and this will be continued until 04/23/2018. Postoperative anemia. Continues to improve on and CBC 04/17/2018, with hemoglobin 9.2 and hematocrit 29.7. Normal MCV; will not check iron panel.. Chronic renal insufficiency, stage 3. Renal function stable on BMP 04/17/2018. Pain management. He reports that due to his peripheral neuropathy he has little pain, but at night when he goes to bed, he feels pain. Continue oxycodone 5-10 mg q.3 hours p.r.n. and acetaminophen as needed. Not used in his 1st day on the rehabilitation unit. HE REPORTS HIS PAIN IS CURRENTLY WELL CONTROLLED Dyslipidemia. He was treated with simvastatin, and this will be continued. Cardiac dysrhythmia. * EKG 04/16/2018 shows 1st degree AV block and occasional premature atrial complexes. Prophylaxis. Per literature review, it is unclear whether would benefit from pharmacologic prophylaxis. He was not receiving anticoagulation during his hospital stay. Will revisit this question and consider anticoagulation depending on his progress with mobility. DISPOSITION: Attended staffing, 15 min. Discussed with catalytic case operator, nursing, dietitian, PT, OT. Lives with his who is unlikely to be able to provide significant physical assistance. Local son is involved in his care. Unclear at present whether short distance ambulation is a reasonable goal. Tentative discharge date set for 05/06/2018. Plan: 04/19/18 09:10 Subjective: He reports minimal right below-knee amputation incisional pain. He denies phantom pain or sensation. Denies left foot pain. Reports good pain control. Denies feeling lightheaded or dizzy. Objective: Vital Signs Temp Pulse Resp BP Pulse Ox 36.7 C 63 16 104/76 94 04/19/18 06:12 04/19/18 06:12 04/19/18 06:12 04/19/18 06:12 04/19/18 06:12 Laboratory Results 04/17/18 05:50 04/17/18 05:50 04/18/18 04/19/18 04/20/18 05:59 05:59 05:59 Intake Total 530 1350 Balance 530 1350 Physical Exam - Physical Exam General Appearance: WD/WN Respiratory: lungs clear, normal breath sounds Cardiac/Chest: other (Decreased capillary refill left foot.) Abdomen: non-tender, soft Skin: other (Left foot-skin is cool. No lesions or eschars. Decreased capillary refill. Right below-knee amputation incision site there is 1 small area laterally which is slightly erythematous nursing notes this was site of previous drainage. No active drainage. Incision line not erythematous, no drainage or induration.) Extremities: other (Soft tissues beneath right below-knee amputation incision site easily mobilized. Nontender to palpation.), No swelling, No Stefano's sign Neuro/Psych: motor weakness (4-/5 right hip flexion, quadriceps and hamstrings.) , sensory deficit (Decreased sensation left foot.) ICD10 Worksheet Patient Problems: Problems Problem Status Onset Cellulitis of right foot Acute Febrile illness, acute Acute
[2018-04-19] MEDS: MELATONIN 3 MG TAB PO SCH (21:53)
[2018-04-20] MEDS: LOSARTAN POTASSIUM 25 MG TAB PO SCH (08:28)
[2018-04-20] MEDS: SENNOSIDES/DOCUSATE SODIUM TAB PO SCH ×2 (08:28→21:11)
[2018-04-20] MEDS: FLUCONAZOLE 100 MG TAB PO SCH (08:28)
[2018-04-20] MEDS: DOXYCYCLINE HYCLATE 100 MG CAP/TAB PO SCH ×2 (08:28→21:11)
[2018-04-20] MEDS: ATORVASTATIN CALCIUM 10 MG TAB PO SCH (08:28)
--- NOTE | 2018-04-20 08:48 | SOAPPROG ---
SOAP Progress Note Assessment/Plan: Assessment: Debility with particular deficits to transfers and mobility following right eiook-bgd-ieru amputation. * Initial functional independence measure 79 on 04/18/2018. Standby assist for bed mobility. Has some mobility limitation due to a left shoulder rotator cuff tear and left shoulder degenerative joint disease. Moderate assistance for slide board transfer. Sit to stand with minimal assist of 2. Approximately 10 sec standing endurance. Given where he is starting he may not be able to progress to a short distance ambulator. Does grooming and hygiene independently from the wheelchair. Upper body dressing requires setup and standby assist. Lower body dressing requires minimal assist. * Continue PT and OT to optimize mobility and activities of daily living to the modified independent level. * WOULD BENEFIT FROM BEDSIDE EXERCISES TO STRENGTHEN THE ROTATOR CUFF MUSCLES Wound care per hospital discharge. The witpo-eax-aubv amputation dressing is to be changed daily, covered with dry gauze and tape. A wound protector and underlying bone char puller sock should be worn at all times. * Wound examined on the day of admission. Well approximated, sutures intact, no erythema or drainage. 1/2 cm flat blister superior to the medial and of the wound. RIGHT BELOW-KNEE AMPUTATION INCISION SITE INSPECTED THIS MORNING THE ERYTHEMA HAS RESCINDED BELOW THE PREVIOUS LEVEL OF DEMARCATION WITH A SKIN MARKER. THERE IS A LITTLE BIT OF DRAINAGE OF THE INCISION AT THE MID POLE AND MEDIALLY HOWEVER DOES NOT INCREASING COMPARED TO YESTERDAY. PERHAPS SLIGHT INDURATION OF THE INCISION AT THE MID POLE WITHOUT INCREASE ERYTHEMA OR DRAINAGE. WILL OBTAIN CBC FOR TOMORROW MORNING JUST TO MAKE SURE THAT HIS WHITE COUNT IS NOT TRENDING UPWARDS. * Follow-up with surgeon Dr. Alanis 7 days after hospital discharge, 2017. If wound is healing well and patient is to remain on rehabilitation, will discuss with Dr. Alejandra emanuel whether follow-up visit can be postponed until after discharge. Cellulitis at incision. Initiate doxycycline 04/18/2018. Texted pictures of wound to surgeons Dr. Brewster and Dr. Alanis [phone]. Continue daily wound dressings and monitoring of response to antibiotics. NO DRAINAGE OR ERYTHEMA. Hypertension. BLOOD PRESSURE THIS MORNING 108/69 * Low blood pressure 04/18/2018 after chlorthalidone 25 mg 04/17/2018. DC chlorthalidone and initiate losartan 04/19/2018 at low dose as ARB is indicated over diuretic with ascended aortic aneurysm and for chronic kidney disease with proteinuria. Check BMP 04/21/2018. Likely peripheral vascular disease as well as ascending aortic aneurysm. He had a chest CT done on a prior admission in December of this year, which showed coronary calcifications, so he likely has coronary artery disease as well. Continue prevention measures with blood pressure control and lipid control. * Should have surveillance CT of aortic aneurysm Q 6 months (next study would be July or August of 2018). * Beta-jared, KEMI inhibitor or angiotensin receptor jared would be first- line therapy to prevent expansion of aneurysm but beta-jared is relatively contraindicated with first-degree AV block. Changing from chlorthalidone to ARB , to start 04/19/2018. Goal systolic blood pressure is between 105 in 120 mm Hg. Left foot skin integrity. NO LESIONS OR ESCHAR. Scattered tiny eschars and 1 possibly new on left 4th toe. Left message for primary hemotherapist Dr. Armstrong , who will be working again on 04/21/2018. Continue skin care per Nursing. Continue to monitor. Positive blood culture for Helen. He is on fluconazole, and this will be continued until 04/23/2018. Postoperative anemia. Continues to improve on and CBC 04/17/2018, with hemoglobin 9.2 and hematocrit 29.7. Normal MCV; will not check iron panel.. Chronic renal insufficiency, stage 3. Renal function stable on BMP 04/17/2018. Pain management. He reports that due to his peripheral neuropathy he has little pain, but at night when he goes to bed, he feels pain. Continue oxycodone 5-10 mg q.3 hours p.r.n. and acetaminophen as needed. Not used in his 1st day on the rehabilitation unit. HE REPORTS HIS PAIN IS CURRENTLY WELL CONTROLLED Dyslipidemia. He was treated with simvastatin, and this will be continued. Cardiac dysrhythmia. * EKG 04/16/2018 shows 1st degree AV block and occasional premature atrial complexes. DENIES FEELING LIGHTHEADED OR DIZZY DURING THERAPY SESSIONS Prophylaxis. Per literature review, it is unclear whether would benefit from pharmacologic prophylaxis. He was not receiving anticoagulation during his hospital stay. Will revisit this question and consider anticoagulation depending on his progress with mobility. DISPOSITION: Attended staffing, 15 min. Discussed with immigration case manager, nursing, dietitian, PT, OT. Lives with his who is unlikely to be able to provide significant physical assistance. Local son is involved in his care. Unclear at present whether short distance ambulation is a reasonable goal. Tentative discharge date set for 05/06/2018. 04/20/18 08:45 Subjective: DENIES SIGNIFICANT RIGHT RESIDUAL LIMB PAIN. DENIES PHANTOM PAIN OR PHANTOM SENSATION. HE REPORTS HE WAS UP IN THE PARALLEL BARS AND WALKER YESTERDAY IN PHYSICAL THERAPY FOR SHORT PERIOD TIME. HE DENIES FEELING LIGHTHEADED OR DIZZY. Objective: Vital Signs Temp Pulse Resp BP Pulse Ox 36.5 C 67 16 108/69 90 L 04/20/18 08:00 04/20/18 08:00 04/20/18 08:00 04/20/18 08:00 04/20/18 08:00 Laboratory Results 04/17/18 05:50 04/17/18 05:50 04/19/18 04/20/18 04/21/18 05:59 05:59 05:59 Intake Total 1350 1430 Balance 1350 1430 Physical Exam - Physical Exam General Appearance: WD/WN, alert, no apparent distress Respiratory: lungs clear, normal breath sounds Abdomen: normal bowel sounds, non-tender, soft Skin: other (RIGHT BELOW-KNEE AMPUTATION INCISION IS INSPECTED. CONTINUES TO HAVE RECESSION OF PREVIOUS AREA OF ERYTHEMA WHICH WAS DEMARCATED WITH A SKIN MARKER. HE HAS A LITTLE BIT OF DRAINAGE ALONG THE MEDIAL INCISION AT A POINT WHERE THERE IS A LITTLE BIT OF REDUNDANT SKIN AROUND THE SUTURE. THERE IS ALSO LITTLE BIT OF DRAINAGE AT THE MID POLE OF THE INCISION. SLIGHT ERYTHEMA AND SLIGHT INDURATION NOTED AT THE MID POLE OF THE INCISION. OVERALL INCISION LOOKS LIKE IT IS CONTINUING TO IMPROVE COMPARED TO YESTERDAY'S EXAM.) ICD10 Worksheet Patient Problems: Problems Problem Status Onset Cellulitis of right foot Acute Febrile illness, acute Acute
[2018-04-20] MEDS: MELATONIN 3 MG TAB PO SCH (21:10)
[2018-04-20] MEDS: oxyCODONE IR 5 MG TAB PO PRN (21:10)
[2018-04-21 08:22] LABS: PLATELET COUNT 360 10^3/uL (150-400)
[2018-04-21] MEDS: FLUCONAZOLE 100 MG TAB PO SCH (09:07)
[2018-04-21] MEDS: DOXYCYCLINE HYCLATE 100 MG CAP/TAB PO SCH ×2 (09:07→20:32)
[2018-04-21] MEDS: LOSARTAN POTASSIUM 25 MG TAB PO SCH (09:07)
[2018-04-21] MEDS: ATORVASTATIN CALCIUM 10 MG TAB PO SCH (09:07)
[2018-04-21] MEDS: SENNOSIDES/DOCUSATE SODIUM TAB PO SCH ×2 (09:08→20:32)
--- NOTE | 2018-04-21 14:34 | SOAPPROG ---
SOAP Progress Note Assessment/Plan: Assessment: Debility with particular deficits to transfers and mobility following right rpidv-cyk-bgep amputation. * Initial functional independence measure 79 on 04/18/2018. Standby assist for bed mobility. Has some mobility limitation due to a left shoulder rotator cuff tear and left shoulder degenerative joint disease. Moderate assistance for slide board transfer. Sit to stand with minimal assist of 2. Approximately 10 sec standing endurance. Given where he is starting he may not be able to progress to a short distance ambulator. Does grooming and hygiene independently from the wheelchair. Upper body dressing requires setup and standby assist. Lower body dressing requires minimal assist. * Continue PT and OT to optimize mobility and activities of daily living to the modified independent level. 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 Wound care per hospital discharge. The nruaj-xxt-shpe amputation dressing is to be changed daily, covered with dry gauze and tape. A wound protector and underlying live out nanny sock should be worn at all times. * Wound examined on the day of admission. Well approximated, sutures intact, no erythema or drainage. 1/2 cm flat blister superior to the medial and of the wound. * Follow-up with surgeon Dr. Alanis 7 days after hospital discharge, 2017. If wound is healing well and patient is to remain on rehabilitation, will discuss with Dr. Alanis whether follow-up visit can be postponed until after discharge. Cellulitis at incision. Initiated doxycycline 04/18/2018. Texted pictures of wound to surgeons Dr. Brewster and Dr. Alanis [phone]. Continue daily wound dressings and monitoring of response to antibiotics. * No longer appears infected on assessment 04/21/2018. Will continue full 7 days of doxycycline, through 04/25/2018. Hypertension. * Low blood pressure 04/18/2018 after chlorthalidone 25 mg 04/17/2018. DC chlorthalidone and initiate losartan 04/19/2018 at low dose as ARB is indicated over diuretic with ascended aortic aneurysm and for chronic kidney disease with proteinuria. * BMP 04/21/2018 with slight increase in creatinine. Continue to monitor. Likely peripheral vascular disease as well as ascending aortic aneurysm. He had a chest CT done on a prior admission in December of this year, which showed coronary calcifications, so he likely has coronary artery disease as well. Continue prevention measures with blood pressure control and lipid control. * Should have surveillance CT of aortic aneurysm Q 6 months (next study would be July or August of 2018). * Beta-jared, KEMI inhibitor or angiotensin receptor jared would be first- line therapy to prevent expansion of aneurysm but beta-jared is relatively contraindicated with first-degree AV block. Changing from chlorthalidone to ARB , to start 04/19/2018. Goal systolic blood pressure is between 105 in 120 mm Hg. Left foot skin integrity. Scattered tiny eschars and 1 possibly new on left 4th toe. Left message for primary sanitarian Dr. Armstrong , who will be working again on 04/21/2018. Continue skin care per Nursing. Continue to monitor. Positive blood culture for Helen. He is on fluconazole, and this will be continued until 04/23/2018. Postoperative anemia. Continues to improve on and CBC 04/17/2018, with hemoglobin 9.2 and hematocrit 29.7. Normal MCV; will not check iron panel.. * Stable on CBC 04/21/2018. Chronic renal insufficiency, stage 3. Renal function stable on BMP 04/17/2018; slight bump in creatinine 10 08/20/2017, possibly due to initiation of ARB. Pain management. He reports that due to his peripheral neuropathy he has little pain, but at night when he goes to bed, he feels pain. Continue oxycodone 5-10 mg q.3 hours p.r.n. and acetaminophen as needed. Used oxycodone x3, 2 days ago, and once yesterday. Dyslipidemia. He was treated with simvastatin, and this will be continued. Cardiac dysrhythmia. * EKG 04/16/2018 shows 1st degree AV block and occasional premature atrial complexes. Prophylaxis. Per literature review, it is unclear whether would benefit from pharmacologic prophylaxis. He was not receiving anticoagulation during his hospital stay. Will revisit this question and consider anticoagulation depending on his progress with mobility. DISPOSITION: Lives with his who is unlikely to be able to provide significant physical assistance. Local son is involved in his care. Unclear at present whether short distance ambulation is a reasonable goal. Tentative discharge date set for 05/06/2018. 04/21/18 14:26 Subjective: No complaints. Not in pain and tenderness on residual limb has resolved. No fevers or chills. Sleeping well. 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 Objective: Vital Signs Temp Pulse Resp BP Pulse Ox 36.4 C 70 16 115/69 96 04/21/18 06:34 04/21/18 06:34 04/21/18 06:34 04/21/18 06:34 04/21/18 06:34 Laboratory Results 04/21/18 05:45 04/21/18 05:45 04/20/18 04/21/18 04/22/18 05:59 05:59 05:59 Intake Total 1430 1300 480 Balance 1430 1300 480 Physical Exam - Physical Exam General Appearance: WD/WN, alert, no apparent distress Respiratory: No respiratory distress, No accessory muscle use Skin: normal color, warm/dry, other (Incision on residual limb: Well- approximated, no discharge, no erythema. Prior area of erythema proximal to wound over baker has received considerably and is now more dusky than erythematous.) Neuro/Psych: no motor/sensory deficits, alert, normal mood/affect, oriented x 3 ICD10 Worksheet Patient Problems: Problems Problem Status Onset Cellulitis of right foot Acute Febrile illness, acute Acute
[2018-04-21] MEDS: MELATONIN 3 MG TAB PO SCH (20:32)
[2018-04-22] MEDS: ATORVASTATIN CALCIUM 10 MG TAB PO SCH (08:17)
[2018-04-22] MEDS: DOXYCYCLINE HYCLATE 100 MG CAP/TAB PO SCH ×2 (08:17→21:59)
[2018-04-22] MEDS: LOSARTAN POTASSIUM 25 MG TAB PO SCH (08:18)
[2018-04-22] MEDS: FLUCONAZOLE 100 MG TAB PO SCH (08:19)
[2018-04-22] MEDS: SENNOSIDES/DOCUSATE SODIUM TAB PO SCH ×2 (08:42→22:00)
--- NOTE | 2018-04-22 14:07 | SOAPPROG ---
SOAP Progress Note Assessment/Plan: Assessment: Debility with particular deficits to transfers and mobility following right hnaqv-yrw-pjwh amputation. * Initial functional independence measure 79 on 04/18/2018. Standby assist for bed mobility. Has some mobility limitation due to a left shoulder rotator cuff tear and left shoulder degenerative joint disease. Moderate assistance for slide board transfer. Sit to stand with minimal assist of 2. Approximately 10 sec standing endurance. Given where he is starting he may not be able to progress to a short distance ambulator. Does grooming and hygiene independently from the wheelchair. Upper body dressing requires setup and standby assist. Lower body dressing requires minimal assist. * Transfers have improved to CGA. * Continue PT and OT to optimize mobility and activities of daily living to the modified independent level. 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 Wound care per hospital discharge. The uapmv-pfl-bzsg amputation dressing is to be changed daily, covered with dry gauze and tape. A wound protector and underlying fisher terrapin sock should be worn at all times. * Wound examined on the day of admission. Well approximated, sutures intact, no erythema or drainage. 1/2 cm flat blister superior to the medial and of the wound. * Follow-up with surgeon Dr. Alanis 7 days after hospital discharge, 2017. If wound is healing well and patient is to remain on rehabilitation, will discuss with Dr. Alanis whether follow-up visit can be postponed until after discharge. Cellulitis at incision. Initiated doxycycline 04/18/2018. Texted pictures of wound to surgeons Dr. Brewster and Dr. Alanis [phone]. Continue daily wound dressings and monitoring of response to antibiotics. * No longer appears infected on assessment 04/21/2018. Will continue full 7 days of doxycycline, through 04/25/2018. Hypertension. * Low blood pressure 04/18/2018 after chlorthalidone 25 mg 04/17/2018. DC chlorthalidone and initiate losartan 04/19/2018 at low dose as ARB is indicated over diuretic with ascended aortic aneurysm and for chronic kidney disease with proteinuria. * BMP 04/21/2018 with slight increase in creatinine. Continue to monitor. Likely peripheral vascular disease as well as ascending aortic aneurysm. He had a chest CT done on a prior admission in December of this year, which showed coronary calcifications, so he likely has coronary artery disease as well. Continue prevention measures with blood pressure control and lipid control. * Should have surveillance CT of aortic aneurysm Q 6 months (next study would be July or August of 2018). * Beta-jared, KEMI inhibitor or angiotensin receptor jared would be first- line therapy to prevent expansion of aneurysm but beta-jared is relatively contraindicated with first-degree AV block. Changing from chlorthalidone to ARB , to start 04/19/2018. Goal systolic blood pressure is between 105 in 120 mm Hg. Left foot skin integrity. Scattered tiny eschars and 1 possibly new on left 4th toe. Left message for primary harvesting supervisor Dr. Armstrong , who will be working again on 04/21/2018. Continue skin care per Nursing. Continue to monitor. Positive blood culture for Helen. He is on fluconazole, and this will be continued until 04/23/2018. Postoperative anemia. Continues to improve on and CBC 04/17/2018, with hemoglobin 9.2 and hematocrit 29.7. Normal MCV; will not check iron panel.. * Stable on CBC 04/21/2018. Chronic renal insufficiency, stage 3. Renal function stable on BMP 04/17/2018; slight bump in creatinine 10 08/20/2017, possibly due to initiation of ARB. Pain management. He reports that due to his peripheral neuropathy he has little pain, but at night when he goes to bed, he feels pain. Continue oxycodone 5-10 mg q.3 hours p.r.n. and acetaminophen as needed. Used oxycodone x3, 2 days ago, and once yesterday. Dyslipidemia. He was treated with simvastatin, and this will be continued. Cardiac dysrhythmia. * EKG 04/16/2018 shows 1st degree AV block and occasional premature atrial complexes. Prophylaxis. Per literature review, it is unclear whether would benefit from pharmacologic prophylaxis. He was not receiving anticoagulation during his hospital stay. DISPOSITION: Lives with his who is unlikely to be able to provide significant physical assistance. Local son is involved in his care. Unclear at present whether short distance ambulation is a reasonable goal. Tentative discharge date set for 05/06/2018. JUSTIFICATION FOR WHEELCHAIR: This patient has a mobility limitation that significantly impairs 1 or more mobility related ADLs in the home. His functional mobility deficit cannot be resolved with a walker or cane. His home is adequate for accessing rooms and maneuvering space and surfaces. The wheelchair will significantly improve his ability to participate in mobility related ADLs and he will use it regularly. He has not expressed and unwillingness to use a wheelchair. He has sufficient physical and mental ability to safely use a wheelchair. JUSTIFICATION FOR CUSHION: Patient requires a cushion proceeding secondary to risk of skin breakdown. He is capable on waiting techniques to prevent breakdown. JUSTIFICATION FOR ELEVATED LEG RESTS: Patient has a musculoskeletal condition which prevents knee flexion to 90 degrees. FOLLOW-UP: He should see surgeon Dr. Alanis week of 04/28/2018. 04/22/18 14:52 Subjective: Has shoulder pain. Requested ibuprofen but given renal issues advise trial of acetaminophen. Otherwise without complaints. Objective: Vital Signs Temp Pulse Resp BP Pulse Ox 36.4 C 84 18 102/75 95 04/22/18 07:41 04/22/18 07:41 04/22/18 07:41 04/22/18 07:41 04/22/18 07:41 Laboratory Results 04/21/18 05:45 04/21/18 05:45 04/21/18 04/22/18 04/23/18 05:59 05:59 05:59 Intake Total 1091 083 1281 Balance 4564 683 4379 Physical Exam - Physical Exam General Appearance: WD/WN, alert, no apparent distress Respiratory: normal breath sounds, No crackles, No rhonchi, No wheezing Cardiac/Chest: JVD, irregularly irregular, No diastolic murmur, No systolic murmur Skin: normal color, warm/dry, other (Dusky tissue especially proximal aspect of wound over baker. Erythema is resolved. No dehiscence, no swelling, no purulence. Minor eschar and minimal brown drainage on dressing over areas with eschar.) Neuro/Psych: no motor/sensory deficits, alert, normal mood/affect, oriented x 3 ICD10 Worksheet Patient Problems: Problems Problem Status Onset Cellulitis of right foot Acute Febrile illness, acute Acute
[2018-04-22] MEDS: ACETAMINOPHEN 325 MG TAB PO PRN (14:08)
[2018-04-22] MEDS: MELATONIN 3 MG TAB PO SCH (21:59)
[2018-04-23] MEDS: LOSARTAN POTASSIUM 25 MG TAB PO SCH (07:59)
[2018-04-23] MEDS: ATORVASTATIN CALCIUM 10 MG TAB PO SCH (07:59)
[2018-04-23] MEDS: DOXYCYCLINE HYCLATE 100 MG CAP/TAB PO SCH ×2 (07:59→21:31)
[2018-04-23] MEDS: SENNOSIDES/DOCUSATE SODIUM TAB PO SCH ×2 (08:03→21:36)
[2018-04-23] MEDS: ACETAMINOPHEN 325 MG TAB PO PRN (08:41)
--- NOTE | 2018-04-23 10:49 | SOAPPROG ---
SOAP Progress Note Assessment/Plan: Assessment: Debility with particular deficits to transfers and mobility following right vtgbd-ssj-qees amputation. * Initial functional independence measure 79 on 04/18/2018. Standby assist for bed mobility. Has some mobility limitation due to a left shoulder rotator cuff tear and left shoulder degenerative joint disease. Moderate assistance for slide board transfer. Sit to stand with minimal assist of 2. Approximately 10 sec standing endurance. Given where he is starting he may not be able to progress to a short distance ambulator. Does grooming and hygiene independently from the wheelchair. Upper body dressing requires setup and standby assist. Lower body dressing requires minimal assist. * Transfers have improved to CGA. * Continue PT and OT to optimize mobility and activities of daily living to the modified independent level. * Can have a pass to opening night of his play on 04/25/2018. Wound care per hospital discharge. The kluil-mpv-yzeg amputation dressing is to be changed daily, covered with dry gauze and tape. A wound protector and underlying semiconductor processing group leader sock should be worn at all times. * Wound examined on the day of admission. Well approximated, sutures intact, no erythema or drainage. 1/2 cm flat blister superior to the medial and of the wound. * Follow-up with surgeon Dr. Alanis 7 days after hospital discharge, 2017. If wound is healing well and patient is to remain on rehabilitation, will discuss with Dr. Alanis whether follow-up visit can be postponed until after discharge. Cellulitis at incision. Initiated doxycycline 04/18/2018. Texted pictures of wound to surgeons Dr. Brewster and Dr. Alanis [phone]. Continue daily wound dressings and monitoring of response to antibiotics. * No longer appears infected on assessment 04/21/2018. Will continue full 7 days of doxycycline, through 04/25/2018. Hypertension. * Low blood pressure 04/18/2018 after chlorthalidone 25 mg 04/17/2018. DC chlorthalidone and initiate losartan 04/19/2018 at low dose as ARB is indicated over diuretic with ascended aortic aneurysm and for chronic kidney disease with proteinuria. * BMP 04/21/2018 with slight increase in creatinine. Continue to monitor. Likely peripheral vascular disease as well as ascending aortic aneurysm. He had a chest CT done on a prior admission in December of this year, which showed coronary calcifications, so he likely has coronary artery disease as well. Continue prevention measures with blood pressure control and lipid control. * Should have surveillance CT of aortic aneurysm Q 6 months (next study would be July or August of 2018). * Beta-jared, KEMI inhibitor or angiotensin receptor jared would be first- line therapy to prevent expansion of aneurysm but beta-jared is relatively contraindicated with first-degree AV block. Changing from chlorthalidone to ARB , to start 04/19/2018. Goal systolic blood pressure is between 105 in 120 mm Hg. Left foot skin integrity. Scattered tiny eschars and 1 possibly new on left 4th toe, resolved. Positive blood culture for Helen. He is on fluconazole, and this will be continued until 04/23/2018. Postoperative anemia. Continues to improve on and CBC 04/17/2018, with hemoglobin 9.2 and hematocrit 29.7. Normal MCV; will not check iron panel.. * Stable on CBC 04/21/2018. Chronic renal insufficiency, stage 3. Renal function stable on BMP 04/17/2018; slight bump in creatinine 04/19/2018, possibly due to initiation of ARB. Pain management. He reports that due to his peripheral neuropathy he has little pain, but at night when he goes to bed, he feels pain. Continue oxycodone 5-10 mg q.3 hours p.r.n. and acetaminophen as needed. Used oxycodone x3, 2 days ago, and once yesterday. Dyslipidemia. He was treated with simvastatin, and this will be continued. Cardiac dysrhythmia. * EKG 04/16/2018 shows 1st degree AV block and occasional premature atrial complexes. Prophylaxis. Per literature review, it is unclear whether would benefit from pharmacologic prophylaxis. He was not receiving anticoagulation during his hospital stay. DISPOSITION: Lives with his who is unlikely to be able to provide significant physical assistance. Local son is involved in his care. Unclear at present whether short distance ambulation is a reasonable goal. Tentative discharge date set for 05/06/2018. JUSTIFICATION FOR WHEELCHAIR: This patient has a mobility limitation that significantly impairs 1 or more mobility related ADLs in the home. His functional mobility deficit cannot be resolved with a walker or cane. His home is adequate for accessing rooms and maneuvering space and surfaces. The wheelchair will significantly improve his ability to participate in mobility related ADLs and he will use it regularly. He has not expressed and unwillingness to use a wheelchair. He has sufficient physical and mental ability to safely use a wheelchair. JUSTIFICATION FOR CUSHION: Patient requires a cushion proceeding secondary to risk of skin breakdown. He is capable on waiting techniques to prevent breakdown. JUSTIFICATION FOR ELEVATED LEG RESTS: Patient has a musculoskeletal condition which prevents knee flexion to 90 degrees. FOLLOW-UP: He will see surgeon Dr. Alanis week of 04/28/2018. 04/23/18 10:46 Subjective: No complaints. Not in pain, sleeping well, no fevers or chills. Left shoulder pain improved with acetaminophen but still present. He does not want to use oxycodone. Objective: Vital Signs Temp Pulse Resp BP Pulse Ox 37.1 C 74 12 113/76 93 04/23/18 07:14 04/23/18 07:14 04/23/18 07:14 04/23/18 07:14 04/23/18 07:14 Laboratory Results 04/21/18 05:45 04/21/18 05:45 04/22/18 04/23/18 04/24/18 05:59 05:59 05:59 Intake Total 600 1875 500 Balance 600 1875 500 Physical Exam - Physical Exam General Appearance: WD/WN, alert, no apparent distress Respiratory: No respiratory distress, No accessory muscle use Skin: normal color, warm/dry Neuro/Psych: no motor/sensory deficits, alert, normal mood/affect, oriented x 3 ICD10 Worksheet Patient Problems: Problems Problem Status Onset Cellulitis of right foot Acute Febrile illness, acute Acute
[2018-04-23] MEDS: MELATONIN 3 MG TAB PO SCH (21:31)
[2018-04-24] MEDS: ACETAMINOPHEN 325 MG TAB PO PRN (07:30)
[2018-04-24] MEDS: ATORVASTATIN CALCIUM 10 MG TAB PO SCH (08:08)
[2018-04-24] MEDS: DOXYCYCLINE HYCLATE 100 MG CAP/TAB PO SCH ×2 (08:08→21:45)
[2018-04-24] MEDS: SENNOSIDES/DOCUSATE SODIUM TAB PO SCH ×2 (08:14→21:36)
[2018-04-24] MEDS: LOSARTAN POTASSIUM 25 MG TAB PO SCH ×2 (08:14→11:39)
--- NOTE | 2018-04-24 15:17 | SOAPPROG ---
SOAP Progress Note Assessment/Plan: Assessment: Debility with particular deficits to transfers and mobility following right garmi-oou-jqwd amputation. * Initial functional independence measure 79 on 04/18/2018. Standby assist for bed mobility. Has some mobility limitation due to a left shoulder rotator cuff tear and left shoulder degenerative joint disease. Moderate assistance for slide board transfer. Sit to stand with minimal assist of 2. Approximately 10 sec standing endurance. Given where he is starting he may not be able to progress to a short distance ambulator. Does grooming and hygiene independently from the wheelchair. Upper body dressing requires setup and standby assist. Lower body dressing requires minimal assist. * Transfers have improved to CGA. * Continue PT and OT to optimize mobility and activities of daily living to the modified independent level. * Can have a pass to opening night of his play on 04/25/2018. Wound care per hospital discharge. The fwyvs-vko-noob amputation dressing is to be changed daily, covered with dry gauze and tape. A wound protector and underlying advertising inserter sock should be worn at all times. * Wound examined on the day of admission. Well approximated, sutures intact, no erythema or drainage. 1/2 cm flat blister superior to the medial and of the wound. * Follow-up with surgeon Dr. Alanis 04/28/2018. Cellulitis at incision. Initiated doxycycline 04/18/2018. Texted pictures of wound to surgeons Dr. rBewster and Dr. Alanis [phone]. Continue daily wound dressings and monitoring of response to antibiotics. * No longer appears infected on assessment 04/21/2018. Will continue full 7 days of doxycycline, through 04/25/2018. * No signs or symptoms of infection on exam 04/24/2018. Hypertension. * Low blood pressure 04/18/2018 after chlorthalidone 25 mg 04/17/2018. DC chlorthalidone and initiate losartan 04/19/2018 at low dose as ARB is indicated over diuretic with ascended aortic aneurysm and for chronic kidney disease with proteinuria. * BMP 04/21/2018 with slight increase in creatinine. Continue to monitor. * Load pressure low on 11/17/2017. Discontinue losartan and monitor blood pressure. Likely peripheral vascular disease as well as ascending aortic aneurysm. He had a chest CT done on a prior admission in December of this year, which showed coronary calcifications, so he likely has coronary artery disease as well. Continue prevention measures with blood pressure control and lipid control. * Should have surveillance CT of aortic aneurysm Q 6 months (next study would be July or August of 2018). * Beta-jared, KEMI inhibitor or angiotensin receptor jared would be first- line therapy to prevent expansion of aneurysm but beta-jared is relatively contraindicated with first-degree AV block. Changing from chlorthalidone to ARB , to start 04/19/2018; discontinuing ARB for low blood pressure on 04/24/2018. Goal systolic blood pressure is between 105 in 120 mm Hg. Left foot skin integrity. Scattered tiny eschars and 1 possibly new on left 4th toe, resolved. Positive blood culture for Helen. He was on fluconazole, discontinued after 04/23/2018. Postoperative anemia. Continues to improve on and CBC 04/17/2018, with hemoglobin 9.2 and hematocrit 29.7. Normal MCV; will not check iron panel.. * Stable on CBC 04/21/2018. Chronic renal insufficiency, stage 3. Renal function stable on BMP 04/17/2018; slight bump in creatinine 04/19/2018, possibly due to initiation of ARB. Pain management. He reports that due to his peripheral neuropathy he has little pain, but at night when he goes to bed, he feels pain. Continue oxycodone 5-10 mg q.3 hours p.r.n. and acetaminophen as needed. Oxycodone not use since 04/20/2018. Dyslipidemia. Continue simvastatin. Cardiac dysrhythmia. * EKG 04/16/2018 shows 1st degree AV block and occasional premature atrial complexes. Prophylaxis. Per literature review, it is unclear whether would benefit from pharmacologic prophylaxis. He was not receiving anticoagulation during his hospital stay. DISPOSITION: Lives with his who is unlikely to be able to provide significant physical assistance. Local son is involved in his care. Unclear at present whether short distance ambulation is a reasonable goal. Tentative discharge date set for 05/06/2018. JUSTIFICATION FOR WHEELCHAIR: This patient has a mobility limitation that significantly impairs 1 or more mobility related ADLs in the home. His functional mobility deficit cannot be resolved with a walker or cane. His home is adequate for accessing rooms and maneuvering space and surfaces. The wheelchair will significantly improve his ability to participate in mobility related ADLs and he will use it regularly. He has not expressed and unwillingness to use a wheelchair. He has sufficient physical and mental ability to safely use a wheelchair. JUSTIFICATION FOR CUSHION: Patient requires a cushion proceeding secondary to risk of skin breakdown. He is capable on waiting techniques to prevent breakdown. JUSTIFICATION FOR ELEVATED LEG RESTS: Patient has a musculoskeletal condition which prevents knee flexion to 90 degrees. FOLLOW-UP: He will see surgeon Dr. Alanis on 04/28/2018. 04/24/18 15:12 Subjective: No complaints. Sleeping well. Not in pain. Now has a stump advertising inserter per jewelry polisher. Objective: Vital Signs Temp Pulse Resp BP Pulse Ox 36.4 C 67 16 101/65 97 04/24/18 07:44 04/24/18 11:26 04/24/18 07:44 04/24/18 11:26 04/24/18 11:26 Laboratory Results 04/21/18 05:45 04/21/18 05:45 04/23/18 04/24/18 04/25/18 05:59 05:59 05:59 Intake Total 1875 1110 980 Balance 1875 1110 980 Physical Exam - Physical Exam General Appearance: WD/WN, alert, no apparent distress Respiratory: No respiratory distress, No accessory muscle use Cardiac/Chest: No edema Skin: normal color, warm/dry, other (Residual limb incision with no erythema and no dehiscence. Minimal serous drainage anterior medial.) Neuro/Psych: no motor/sensory deficits, alert, normal mood/affect, oriented x 3 ICD10 Worksheet Patient Problems: Problems Problem Status Onset Cellulitis of right foot Acute Febrile illness, acute Acute
[2018-04-24] MEDS: MELATONIN 3 MG TAB PO SCH (21:45)
[2018-04-25] MEDS: DOXYCYCLINE HYCLATE 100 MG CAP/TAB PO SCH (08:30)
[2018-04-25] MEDS: ATORVASTATIN CALCIUM 10 MG TAB PO SCH (08:31)
[2018-04-25] MEDS: ACETAMINOPHEN 325 MG TAB PO PRN (08:31)
[2018-04-25] MEDS: SENNOSIDES/DOCUSATE SODIUM TAB PO SCH ×2 (08:33→22:47)
--- NOTE | 2018-04-25 11:24 | SOAPPROG ---
SOAP Progress Note Assessment/Plan: Assessment: Debility with particular deficits to transfers and mobility following right xwvbk-dzz-grah amputation. * Initial functional independence measure 79 on 04/18/2018; improved to 97 as of 04/25/2018. Independent with bed mobility. Squat pivot transfer done with standby assist. Stand pivot transfer to front wheeled walker done with minimal to moderate assist and has pain in left shoulder. Ambulated 15 ft with contact guard assist using front wheeled walker. Accomplished car transfer with standby assist. Independent in grooming and hygiene from the wheelchair. Upper body dressing requires setup, lower body dressing requires cold close standby assist. Bath and toilet transfers are accomplished with standby assist. Bathing and toileting are done with supervision. * Continue PT and OT to optimize mobility and activities of daily living to the modified independent level. * Can have a pass to opening night of his play on 04/25/2018. Wound care per hospital discharge. The tjvkp-apm-[id number] amputation dressing is to be changed daily, covered with dry gauze and tape. A wound protector and underlying type bar and segment assembler sock should be worn at all times. * Wound examined on the day of admission. Well approximated, sutures intact, no erythema or drainage. 1/2 cm flat blister superior to the medial and of the wound. * Examine 04/24/2018 and foot photos of a wound examined 04/25/2018. Not consistent with infection. Overall healing well. Serosanguineous drainage from Center wound may be due to extra pressure from stump type bar and segment assembler. * Follow-up with surgeon Dr. Alanis 04/28/2018. Cellulitis at incision. Initiated doxycycline 04/18/2018. Texted pictures of wound to surgeons Dr. Brewster and Dr. Alanis [phone]. Continue daily wound dressings and monitoring of response to antibiotics. * No longer appears infected on assessment 04/21/2018. Will continue full 7 days of doxycycline, through 04/25/2018. * No signs or symptoms of infection on exam 04/24/2018. Hypertension. * Low blood pressure 04/18/2018 after chlorthalidone 25 mg 04/17/2018. DC chlorthalidone and initiate losartan 04/19/2018 at low dose as ARB is indicated over diuretic with ascended aortic aneurysm and for chronic kidney disease with proteinuria. * BMP 04/21/2018 with slight increase in creatinine. Continue to monitor. * Low blood pressure on 04/24/2018. Discontinue losartan and monitor blood pressure. Likely peripheral vascular disease as well as ascending aortic aneurysm. He had a chest CT done on a prior admission in December of this year, which showed coronary calcifications, so he likely has coronary artery disease as well. Continue prevention measures with blood pressure control and lipid control. * Should have surveillance CT of aortic aneurysm Q 6 months (next study would be July or August of 2018). * Beta-jared, KEMI inhibitor or angiotensin receptor jared would be first- line therapy to prevent expansion of aneurysm but beta-jared is relatively contraindicated with first-degree AV block. Changing from chlorthalidone to ARB , to start 04/19/2018; discontinuing ARB for low blood pressure on 04/24/2018. Goal systolic blood pressure is between 105 in 120 mm Hg. Left foot skin integrity. Scattered tiny eschars and 1 possibly new on left 4th toe, resolved. Positive blood culture for Helen. He was on fluconazole, discontinued after 04/23/2018. Postoperative anemia. Continues to improve on and CBC 04/17/2018, with hemoglobin 9.2 and hematocrit 29.7. Normal MCV; will not check iron panel.. * Stable on CBC 04/21/2018. Chronic renal insufficiency, stage 3. Renal function stable on BMP 04/17/2018; slight bump in creatinine 04/19/2018, possibly due to initiation of ARB. Pain management. He reports that due to his peripheral neuropathy he has little pain, but at night when he goes to bed, he feels pain. Continue oxycodone 5-10 mg q.3 hours p.r.n. and acetaminophen as needed. Oxycodone not use since 04/20/2018. Dyslipidemia. Continue simvastatin. Cardiac dysrhythmia. * EKG 04/16/2018 shows 1st degree AV block and occasional premature atrial complexes. Prophylaxis. Per literature review, it is unclear whether would benefit from pharmacologic prophylaxis. He was not receiving anticoagulation during his hospital stay. DISPOSITION: Attended staffing, 15 min. Discussed with case management, nursing, dietitian, PT, OT. Lives with his who is unlikely to be able to provide significant physical assistance. Local son is involved in his care. Other family out of town will be visiting through [place]. Tentative discharge date set for 04/30/2018. JUSTIFICATION FOR WHEELCHAIR: This patient has a mobility limitation that significantly impairs 1 or more mobility related ADLs in the home. His functional mobility deficit cannot be resolved with a walker or cane. His home is adequate for accessing rooms and maneuvering space and surfaces. The wheelchair will significantly improve his ability to participate in mobility related ADLs and he will use it regularly. He has not expressed and unwillingness to use a wheelchair. He has sufficient physical and mental ability to safely use a wheelchair. JUSTIFICATION FOR CUSHION: Patient requires a cushion proceeding secondary to risk of skin breakdown. He is capable on waiting techniques to prevent breakdown. JUSTIFICATION FOR ELEVATED LEG RESTS: Patient has a musculoskeletal condition which prevents knee flexion to 90 degrees. FOLLOW-UP: He will see surgeon Dr. Alanis on 04/28/2018. 04/25/18 11:19 Subjective: Had some bleeding from his wound in the shower today. He denies discomfort. Otherwise without complaints. Not not in pain, sleeping well, no cough or dyspnea, no fever chills. Objective: Vital Signs Temp Pulse Resp BP Pulse Ox 36.6 C 83 18 111/69 98 04/25/18 08:53 04/25/18 08:53 04/25/18 08:53 04/25/18 08:53 04/25/18 08:53 Laboratory Results 04/21/18 05:45 04/21/18 05:45 04/24/18 04/25/18 04/26/18 05:59 05:59 05:59 Intake Total 1110 1230 360 Balance 1110 1230 360 - Time Spent With Patient Time Spent With Patient: Greater than 35 min floor time today, including more than 50% of time in coordination of care during staffing meeting, and counseling patient. Physical Exam - Physical Exam General Appearance: WD/WN, alert, no apparent distress Respiratory: No respiratory distress, No accessory muscle use Skin: normal color, warm/dry, other (Inspected photo of wound taken this morning after showering. No erythema swelling or purulence, no dehiscence. Slight serosanguineous discharge at Center of wound.) Neuro/Psych: no motor/sensory deficits, alert, normal mood/affect, oriented x 3 ICD10 Worksheet Patient Problems: Problems Problem Status Onset Cellulitis of right foot Acute Febrile illness, acute Acute
[2018-04-25] MEDS: MELATONIN 3 MG TAB PO SCH (22:47)
[2018-04-26] MEDS: ATORVASTATIN CALCIUM 10 MG TAB PO SCH (08:24)
[2018-04-26] MEDS: SENNOSIDES/DOCUSATE SODIUM TAB PO SCH ×2 (08:25→21:36)
--- NOTE | 2018-04-26 10:13 | SOAPPROG ---
SOAP Progress Note Assessment/Plan: Assessment/Plan: Debility with particular deficits to transfers and mobility following right klnrh-fwk-pixt amputation. * Initial functional independence measure 79 on 04/18/2018; improved to 97 as of 04/25/2018. Independent with bed mobility. Squat pivot transfer done with standby assist. Stand pivot transfer to front wheeled walker done with minimal to moderate assist and has pain in left shoulder. Ambulated 15 ft with contact guard assist using front wheeled walker. Accomplished car transfer with standby assist. Independent in grooming and hygiene from the wheelchair. Upper body dressing requires setup, lower body dressing requires cold close standby assist. Bath and toilet transfers are accomplished with standby assist. Bathing and toileting are done with supervision. * Continue PT and OT to optimize mobility and activities of daily living to the modified independent level. * Can have a pass to opening night of his play on 04/25/2018. Wound care per hospital discharge. The [id number]-[id number] amputation dressing is to be changed daily, covered with dry gauze and tape. A wound protector and underlying rn progressive care sock should be worn at all times. * Wound examined on the day of admission. Well approximated, sutures intact, no erythema or drainage. 1/2 cm flat blister superior to the medial and of the wound. * Incision line healing well - Centrally with small area where scab has come off - otherwise well approximated with minimal to no serosanguinous drainage () * Follow-up with surgeon Dr. Alanis 04/28/2018. Cellulitis at incision. Initiated doxycycline 04/18/2018. Texted pictures of wound to surgeons Dr. Brewster and Dr. Alanis [phone]. Continue daily wound dressings and monitoring of response to antibiotics. * No longer appears infected on assessment 04/21/2018. Will continue full 7 days of doxycycline, through 04/25/2018. * No signs or symptoms of infection on exam 04/24/2018. Hypertension. * Low blood pressure 04/18/2018 after chlorthalidone 25 mg 04/17/2018. DC chlorthalidone and initiate losartan 04/19/2018 at low dose as ARB is indicated over diuretic with ascended aortic aneurysm and for chronic kidney disease with proteinuria. * BMP 04/21/2018 with slight increase in creatinine. Continue to monitor. * Low blood pressure on 04/24/2018. Discontinue losartan and monitor blood pressure. Likely peripheral vascular disease as well as ascending aortic aneurysm. He had a chest CT done on a prior admission in December of this year, which showed coronary calcifications, so he likely has coronary artery disease as well. Continue prevention measures with blood pressure control and lipid control. * Should have surveillance CT of aortic aneurysm Q 6 months (next study would be July or August of 2018). * Beta-jared, KEMI inhibitor or angiotensin receptor jared would be first- line therapy to prevent expansion of aneurysm but beta-jared is relatively contraindicated with first-degree AV block. Changing from chlorthalidone to ARB , to start 04/19/2018; discontinuing ARB for low blood pressure on 04/24/2018. Goal systolic blood pressure is between 105 in 120 mm Hg. Left foot skin integrity. Scattered tiny eschars and 1 possibly new on left 4th toe, resolved. Positive blood culture for Helen. He was on fluconazole, discontinued after 04/23/2018. Postoperative anemia. Continues to improve on and CBC 04/17/2018, with hemoglobin 9.2 and hematocrit 29.7. Normal MCV; will not check iron panel.. * Stable on CBC 04/21/2018. Chronic renal insufficiency, stage 3. Renal function stable on BMP 04/17/2018; slight bump in creatinine 04/19/2018, possibly due to initiation of ARB. Pain management. He reports that due to his peripheral neuropathy he has little pain, but at night when he goes to bed, he feels pain. Continue oxycodone 5-10 mg q.3 hours p.r.n. and acetaminophen as needed. Oxycodone not use since 04/20/2018. Dyslipidemia. Continue simvastatin. Cardiac dysrhythmia. * EKG 04/16/2018 shows 1st degree AV block and occasional premature atrial complexes. Prophylaxis. Per literature review, it is unclear whether would benefit from pharmacologic prophylaxis. He was not receiving anticoagulation during his hospital stay. DISPOSITION: Attended staffing, 15 min. Discussed with case management, nursing, dietitian, PT, OT. Lives with his who is unlikely to be able to provide significant physical assistance. Local son is involved in his care. Other family out of town will be visiting through [place]. Tentative discharge date set for 04/30/2018. JUSTIFICATION FOR WHEELCHAIR: This patient has a mobility limitation that significantly impairs 1 or more mobility related ADLs in the home. His functional mobility deficit cannot be resolved with a walker or cane. His home is adequate for accessing rooms and maneuvering space and surfaces. The wheelchair will significantly improve his ability to participate in mobility related ADLs and he will use it regularly. He has not expressed and unwillingness to use a wheelchair. He has sufficient physical and mental ability to safely use a wheelchair. JUSTIFICATION FOR CUSHION: Patient requires a cushion proceeding secondary to risk of skin breakdown. He is capable on waiting techniques to prevent breakdown. JUSTIFICATION FOR ELEVATED LEG RESTS: Patient has a musculoskeletal condition which prevents knee flexion to 90 degrees. FOLLOW-UP: He will see surgeon Dr. Alanis on 04/28/2018. Pt overall looking good today - Incision healing well - as expected for current post-operative time frame. minimal to no drainage. Had good discussion with patient regarding care needed for R residual limb and left intact limb - discussed risk of further amputations pending care. Pt appreciative of the information. 04/26/18 10:09 Subjective: doing well - Not complaining of any significant pain. Feeling anxious to participate and to get better. denies having any fevers/chills. Objective: Vital Signs Temp Pulse Resp BP Pulse Ox 97.4 F 66 18 121/82 H 94 04/26/18 08:00 04/26/18 08:00 04/26/18 08:00 04/26/18 08:00 04/26/18 08:00 Laboratory Results 04/21/18 05:45 04/21/18 05:45 04/25/18 04/26/18 04/27/18 05:59 05:59 05:59 Intake Total 1230 1340 360 Balance 1230 1340 360 Physical Exam - Physical Exam General Appearance: alert, no apparent distress EENT: PERRL/EOMI Respiratory: lungs clear, normal breath sounds Cardiac/Chest: regular rate, rhythm Abdomen: non-tender, soft Skin: other (Right residual limb. Slightly discoloration centrally - good color otherwise. Well approximated incision with small area of subcutenous exposure centrally (scab has fallen off) only had a minimal amount of drainage on the dressing. The left Intact limb. Some venous stasis type presenation. No hair, Warm foot with faint pulse. Several superficial abrasions over the dorsum of the foot although no evidence of any infection) Neuro/Psych: alert, normal mood/affect ICD10 Worksheet Patient Problems: Problems Problem Status Onset Cellulitis of right foot Acute Febrile illness, acute Acute
[2018-04-26] MEDS: MELATONIN 3 MG TAB PO SCH (21:37)
[2018-04-27] MEDS: SENNOSIDES/DOCUSATE SODIUM TAB PO SCH ×2 (08:06→21:25)
[2018-04-27] MEDS: ATORVASTATIN CALCIUM 10 MG TAB PO SCH (08:06)
--- NOTE | 2018-04-27 10:30 | SOAPPROG ---
SOAP Progress Note Assessment/Plan: Assessment/Plan: Debility with particular deficits to transfers and mobility following right vskhf-tow-uxxn amputation. * Initial functional independence measure 79 on 04/18/2018; improved to 97 as of 04/25/2018. Independent with bed mobility. Squat pivot transfer done with standby assist. Stand pivot transfer to front wheeled walker done with minimal to moderate assist and has pain in left shoulder. Ambulated 15 ft with contact guard assist using front wheeled walker. Accomplished car transfer with standby assist. Independent in grooming and hygiene from the wheelchair. Upper body dressing requires setup, lower body dressing requires cold close standby assist. Bath and toilet transfers are accomplished with standby assist. Bathing and toileting are done with supervision. * Continue PT and OT to optimize mobility and activities of daily living to the modified independent level. * Can have a pass to opening night of his play on 04/25/2018. Wound care per hospital discharge. The wgmkh-[id number]-[id number] amputation dressing is to be changed daily, covered with dry gauze and tape. A wound protector and underlying templer head sock should be worn at all times. * Wound examined on the day of admission. Well approximated, sutures intact, no erythema or drainage. 1/2 cm flat blister superior to the medial and of the wound. * Incision line healing well - Centrally with small area where scab has come off - otherwise well approximated with minimal to no serosanguinous drainage () * Follow-up with surgeon Dr. Alanis 04/28/2018. Cellulitis at incision. Initiated doxycycline 04/18/2018. Texted pictures of wound to surgeons Dr. Brewster and Dr. Alanis [phone]. Continue daily wound dressings and monitoring of response to antibiotics. * No longer appears infected on assessment 04/21/2018. Will continue full 7 days of doxycycline, through 04/25/2018. * No signs or symptoms of infection on exam 04/27/2018. Hypertension. * Low blood pressure 04/18/2018 after chlorthalidone 25 mg 04/17/2018. DC chlorthalidone and initiate losartan 04/19/2018 at low dose as ARB is indicated over diuretic with ascended aortic aneurysm and for chronic kidney disease with proteinuria. * BMP 04/21/2018 with slight increase in creatinine. Continue to monitor. * Low blood pressure on 04/24/2018. Discontinue losartan and monitor blood pressure. Likely peripheral vascular disease as well as ascending aortic aneurysm. He had a chest CT done on a prior admission in December of this year, which showed coronary calcifications, so he likely has coronary artery disease as well. Continue prevention measures with blood pressure control and lipid control. * Should have surveillance CT of aortic aneurysm Q 6 months (next study would be July or August of 2018). * Beta-jared, KEMI inhibitor or angiotensin receptor jared would be first- line therapy to prevent expansion of aneurysm but beta-jared is relatively contraindicated with first-degree AV block. Changing from chlorthalidone to ARB , to start 04/19/2018; discontinuing ARB for low blood pressure on 04/24/2018. Goal systolic blood pressure is between 105 in 120 mm Hg. Left foot skin integrity. Small skin abrasions over the dorsum of the foot - no evidence of infection -04/27/18. RN to monitor intermittently Positive blood culture for Helen. He was on fluconazole, discontinued after 04/23/2018. Postoperative anemia. Continues to improve on and CBC 04/17/2018, with hemoglobin 9.2 and hematocrit 29.7. Normal MCV; will not check iron panel.. * Stable on CBC 04/21/2018. Chronic renal insufficiency, stage 3. Renal function stable on BMP 04/17/2018; slight bump in creatinine 04/19/2018, possibly due to initiation of ARB. * Repeat CR on 04/27- In typical range - 1.5 Pain management. He reports that due to his peripheral neuropathy he has little pain, but at night when he goes to bed, he feels pain. Continue oxycodone 5-10 mg q.3 hours p.r.n. and acetaminophen as needed. Oxycodone not use since 04/20/2018. Dyslipidemia. Continue simvastatin. Cardiac dysrhythmia. * EKG 04/16/2018 shows 1st degree AV block and occasional premature atrial complexes. Prophylaxis. Per literature review, it is unclear whether would benefit from pharmacologic prophylaxis. He was not receiving anticoagulation during his acute hospital stay. DISPOSITION: Attended staffing, 15 min. Discussed with case management, nursing, dietitian, PT, OT. Lives with his who is unlikely to be able to provide significant physical assistance. Local son is involved in his care. Other family out of town will be visiting through [place]. Tentative discharge date set for 04/30/2018. JUSTIFICATION FOR WHEELCHAIR: This patient has a mobility limitation that significantly impairs 1 or more mobility related ADLs in the home. His functional mobility deficit cannot be resolved with a walker or cane. His home is adequate for accessing rooms and maneuvering space and surfaces. The wheelchair will significantly improve his ability to participate in mobility related ADLs and he will use it regularly. He has not expressed and unwillingness to use a wheelchair. He has sufficient physical and mental ability to safely use a wheelchair. JUSTIFICATION FOR CUSHION: Patient requires a cushion proceeding secondary to risk of skin breakdown. He is capable on waiting techniques to prevent breakdown. JUSTIFICATION FOR ELEVATED LEG RESTS: Patient has a musculoskeletal condition which prevents knee flexion to 90 degrees. FOLLOW-UP: He will see surgeon Dr. Alanis on 04/28/2018. 04/27/18 10:26 Subjective: Doing well this morning - Was in with RN to evaluate the incision. Pt being very vigilant and asking questions about how his incision looks. No pain or other concerns. Swelling is improving in the limb. Will meet with Surgeon for f/u tomorrow. NO fevers/chill, SOB, CP Objective: Vital Signs Temp Pulse Resp BP Pulse Ox 98.4 F 57 L 12 117/61 94 04/27/18 06:44 04/27/18 06:44 04/27/18 06:44 04/27/18 06:44 04/27/18 06:44 Laboratory Results 04/21/18 05:45 04/27/18 06:30 04/26/18 04/27/18 04/28/18 05:59 05:59 05:59 Intake Total 1340 960 625 Balance 1340 960 625 Physical Exam - Physical Exam General Appearance: alert, no apparent distress EENT: PERRL/EOMI Respiratory: lungs clear Cardiac/Chest: regular rate, rhythm Abdomen: normal bowel sounds, non-tender Skin: other (Incision looking good - no new changes as compared to yesterday. ) Neuro/Psych: alert, normal mood/affect ICD10 Worksheet Patient Problems: Problems Problem Status Onset Cellulitis of right foot Acute Febrile illness, acute Acute
[2018-04-27] MEDS: MELATONIN 3 MG TAB PO SCH (21:25)
[2018-04-28] MEDS: SENNOSIDES/DOCUSATE SODIUM TAB PO SCH ×2 (08:50→21:43)
[2018-04-28] MEDS: ATORVASTATIN CALCIUM 10 MG TAB PO SCH (08:50)
--- NOTE | 2018-04-28 11:47 | SOAPPROG ---
SOAP Progress Note Assessment/Plan: Assessment: Debility with particular deficits to transfers and mobility following right rfjrm-paa-ftlt amputation. * Initial functional independence measure 79 on 04/18/2018; improved to 97 as of 04/25/2018. Independent with bed mobility. Squat pivot transfer done with standby assist. Stand pivot transfer to front wheeled walker done with minimal to moderate assist and has pain in left shoulder. Ambulated 15 ft with contact guard assist using front wheeled walker. Accomplished car transfer with standby assist. Independent in grooming and hygiene from the wheelchair. Upper body dressing requires setup, lower body dressing requires cold close standby assist. Bath and toilet transfers are accomplished with standby assist. Bathing and toileting are done with supervision. * Continue PT and OT to optimize mobility and activities of daily living to the modified independent level. Wound care per hospital discharge. The kxypj-[id number]-[id number] amputation dressing is to be changed daily, covered with dry gauze and tape. A wound protector and underlying actuary clerk sock should be worn at all times. * Wound examined on the day of admission. Well approximated, sutures intact, no erythema or drainage. 1/2 cm flat blister superior to the medial and of the wound. * Examine 04/24/2018 and foot photos of a wound examined 04/25/2018. Not consistent with infection. Overall healing well. Serosanguineous drainage from Center wound may be due to extra pressure from stump actuary clerk. * Follow-up with surgeon Dr. Alanis 04/28/2018. Cellulitis at incision. Initiated doxycycline 04/18/2018. Texted pictures of wound to surgeons Dr. Brewster and Dr. Alanis [phone]. Continue daily wound dressings and monitoring of response to antibiotics. * No longer appears infected on assessment 04/21/2018. Will continue full 7 days of doxycycline, through 04/25/2018. * No signs or symptoms of infection on exam 04/24/2018. Hypertension. * Low blood pressure 04/18/2018 after chlorthalidone 25 mg 04/17/2018. DC chlorthalidone and initiate losartan 04/19/2018 at low dose as ARB is indicated over diuretic with ascended aortic aneurysm and for chronic kidney disease with proteinuria. * BMP 04/21/2018 with slight increase in creatinine. Back to baseline on 2017. * Low blood pressure on 04/24/2018. Discontinue losartan and monitor blood pressure. Likely peripheral vascular disease as well as ascending aortic aneurysm. He had a chest CT done on a prior admission in December of this year, which showed coronary calcifications, so he likely has coronary artery disease as well. Continue prevention measures with blood pressure control and lipid control. * Should have surveillance CT of aortic aneurysm Q 6 months (next study would be July or August of 2018). * Beta-jared, KEMI inhibitor or angiotensin receptor jared would be first- line therapy to prevent expansion of aneurysm but beta-jared is relatively contraindicated with first-degree AV block. Changing from chlorthalidone to ARB , to start 04/19/2018; discontinuing ARB for low blood pressure on 04/24/2018. Goal systolic blood pressure is between 105 in 120 mm Hg. Left foot skin integrity. Scattered tiny eschars and 1 possibly new on left 4th toe, resolved. Positive blood culture for Helen. He was on fluconazole, discontinued after 04/23/2018. Postoperative anemia. Continues to improve on and CBC 04/17/2018, with hemoglobin 9.2 and hematocrit 29.7. Normal MCV; will not check iron panel.. * Stable on CBC 04/21/2018. Chronic renal insufficiency, stage 3. Renal function stable on BMP 04/17/2018; slight bump in creatinine 04/19/2018, possibly due to initiation of ARB. Back to baseline and off antihypertensives on 04/28/2002 Pain management. He reports that due to his peripheral neuropathy he has little pain, but at night when he goes to bed, he feels pain. Continue oxycodone 5-10 mg q.3 hours p.r.n. and acetaminophen as needed. Oxycodone not used since 04/20/2018, has been discontinued. Dyslipidemia. Continue simvastatin. Cardiac dysrhythmia. * EKG 04/16/2018 shows 1st degree AV block and occasional premature atrial complexes. Prophylaxis. Per literature review, it is unclear whether would benefit from pharmacologic prophylaxis. He was not receiving anticoagulation during his hospital stay. DISPOSITION: Lives with his who is unlikely to be able to provide significant physical assistance. Local son is involved in his care. Other family out of town will be visiting through [place]. Tentative discharge date set for 04/30/2018. JUSTIFICATION FOR WHEELCHAIR: This patient has a mobility limitation that significantly impairs 1 or more mobility related ADLs in the home. His functional mobility deficit cannot be resolved with a walker or cane. His home is adequate for accessing rooms and maneuvering space and surfaces. The wheelchair will significantly improve his ability to participate in mobility related ADLs and he will use it regularly. He has not expressed and unwillingness to use a wheelchair. He has sufficient physical and mental ability to safely use a wheelchair. JUSTIFICATION FOR CUSHION: Patient requires a cushion proceeding secondary to risk of skin breakdown. He is capable on waiting techniques to prevent breakdown. JUSTIFICATION FOR ELEVATED LEG RESTS: Patient has a musculoskeletal condition which prevents knee flexion to 90 degrees. FOLLOW-UP: He will see surgeon Dr. Alanis on 04/28/2018. 04/28/18 11:40 Subjective: No complaints. Sleeping well. Not in pain. Has follow up with surgeon Dr. Alanis this afternoon. Objective: Vital Signs Temp Pulse Resp BP Pulse Ox 36.6 C 63 14 135/88 H 94 04/28/18 07:48 04/28/18 07:48 04/28/18 07:48 04/28/18 07:48 04/28/18 07:48 Laboratory Results 04/21/18 05:45 04/27/18 06:30 04/27/18 04/28/18 04/29/18 05:59 05:59 05:59 Intake Total 960 2523 Balance 960 2523 Physical Exam - Physical Exam General Appearance: WD/WN, alert, no apparent distress Respiratory: No respiratory distress, No accessory muscle use Skin: normal color, warm/dry Neuro/Psych: no motor/sensory deficits, alert, normal mood/affect, other ( Observed squat pivot transfer with PT.) ICD10 Worksheet Patient Problems: Problems Problem Status Onset Cellulitis of right foot Acute Febrile illness, acute Acute
[2018-04-28] MEDS: MELATONIN 3 MG TAB PO SCH (21:43)
[2018-04-29] MEDS: ATORVASTATIN CALCIUM 10 MG TAB PO SCH (08:07)
[2018-04-29] MEDS: SENNOSIDES/DOCUSATE SODIUM TAB PO SCH ×2 (08:07→21:47)
[2018-04-29] MEDS: ACETAMINOPHEN 325 MG TAB PO PRN (12:39)
--- NOTE | 2018-04-29 14:31 | SOAPPROG ---
SOAP Progress Note Assessment/Plan: Assessment: Debility with particular deficits to transfers and mobility following right [id number]-rus-[id number] amputation. * Initial functional independence measure 79 on 04/18/2018; improved to 97 as of 04/25/2018. Independent with bed mobility. Squat pivot transfer done with standby assist. Stand pivot transfer to front wheeled walker done with minimal to moderate assist and has pain in left shoulder. Ambulated 15 ft with contact guard assist using front wheeled walker. Accomplished car transfer with standby assist. Independent in grooming and hygiene from the wheelchair. Upper body dressing requires setup, lower body dressing requires cold close standby assist. Bath and toilet transfers are accomplished with standby assist. Bathing and toileting are done with supervision. * Advanced to independent in his room from 7:00 a.m. to 10:00 p.m.. * Continue PT and OT to optimize mobility and activities of daily living to the modified independent level. Wound care per hospital discharge. The dkuhw-oul-rvsd amputation dressing is to be changed daily, covered with dry gauze and tape. A wound protector and underlying deputy attorney general sock should be worn at all times. * Wound examined on the day of admission. Well approximated, sutures intact, no erythema or drainage. 1/2 cm flat blister superior to the medial and of the wound. * Examine 04/24/2018 and foot photos of a wound examined 04/25/2018. Not consistent with infection. Overall healing well. Serosanguineous drainage from Center wound may be due to extra pressure from stump deputy attorney general. * Follow-up with surgeon Dr. Alanis 05/09/2018. Cellulitis at incision. Initiated doxycycline 04/18/2018. Texted pictures of wound to surgeons Dr. Brewster and Dr. Alanis [phone]. Continue daily wound dressings and monitoring of response to antibiotics. * No longer appears infected on assessment 04/21/2018. Will continue full 7 days of doxycycline, through 04/25/2018. * No signs or symptoms of infection on exam 04/24/2018. Hypertension. * Low blood pressure 04/18/2018 after chlorthalidone 25 mg 04/17/2018. DC chlorthalidone and initiate losartan 04/19/2018 at low dose as ARB is indicated over diuretic with ascended aortic aneurysm and for chronic kidney disease with proteinuria. * BMP 04/21/2018 with slight increase in creatinine. Back to baseline on 2017. * Low blood pressure on 04/24/2018. Discontinue losartan and monitor blood pressure. Likely peripheral vascular disease as well as ascending aortic aneurysm. He had a chest CT done on a prior admission in December of this year, which showed coronary calcifications, so he likely has coronary artery disease as well. Continue prevention measures with blood pressure control and lipid control. * Should have surveillance CT of aortic aneurysm Q 6 months (next study would be July or August of 2018). * Beta-jared, KEMI inhibitor or angiotensin receptor jared would be first- line therapy to prevent expansion of aneurysm but beta-jared is relatively contraindicated with first-degree AV block. Changing from chlorthalidone to ARB , to start 04/19/2018; discontinuing ARB for low blood pressure on 04/24/2018. Goal systolic blood pressure is between 105 in 120 mm Hg. Left foot skin integrity. Scattered tiny eschars and 1 possibly new on left 4th toe, resolved. Positive blood culture for Helen. He was on fluconazole, discontinued after 04/23/2018. Postoperative anemia. Continues to improve on and CBC 04/17/2018, with hemoglobin 9.2 and hematocrit 29.7. Normal MCV; will not check iron panel.. * Stable on CBC 04/21/2018. Chronic renal insufficiency, stage 3. Renal function stable on BMP 04/17/2018; slight bump in creatinine 04/19/2018, possibly due to initiation of ARB. Back to baseline and off antihypertensives on 04/28/2002 Pain management. He reports that due to his peripheral neuropathy he has little pain, but at night when he goes to bed, he feels pain. Continue oxycodone 5-10 mg q.3 hours p.r.n. and acetaminophen as needed. Oxycodone not used since 04/20/2018, has been discontinued. Dyslipidemia. Continue simvastatin. Cardiac dysrhythmia. * EKG 04/16/2018 shows 1st degree AV block and occasional premature atrial complexes. Prophylaxis. Per literature review, it is unclear whether would benefit from pharmacologic prophylaxis. He was not receiving anticoagulation during his hospital stay. DISPOSITION: Lives with his who is unlikely to be able to provide significant physical assistance. Local son is involved in his care. Other family out of town will be visiting through [place]. Tentative discharge date set for 04/30/2018. JUSTIFICATION FOR WHEELCHAIR: This patient has a mobility limitation that significantly impairs 1 or more mobility related ADLs in the home. His functional mobility deficit cannot be resolved with a walker or cane. His home is adequate for accessing rooms and maneuvering space and surfaces. The wheelchair will significantly improve his ability to participate in mobility related ADLs and he will use it regularly. He has not expressed and unwillingness to use a wheelchair. He has sufficient physical and mental ability to safely use a wheelchair. JUSTIFICATION FOR CUSHION: Patient requires a cushion proceeding secondary to risk of skin breakdown. He is capable on waiting techniques to prevent breakdown. JUSTIFICATION FOR ELEVATED LEG RESTS: Patient has a musculoskeletal condition which prevents knee flexion to 90 degrees. FOLLOW-UP: He will see surgeon Dr. Alanis on 04/28/2018. 04/29/18 14:29 Subjective: No complaints. Had surgical follow-up yesterday and reports the surgeon was please with his wound healing. Not in pain, no fevers or chills, no cough or dyspnea. Objective: Vital Signs Temp Pulse Resp BP Pulse Ox 36.6 C 67 16 112/82 H 95 04/29/18 07:50 04/29/18 07:50 04/29/18 07:50 04/29/18 07:50 04/29/18 07:50 Laboratory Results 04/21/18 05:45 04/27/18 06:30 04/28/18 04/29/18 04/30/18 05:59 05:59 05:59 Intake Total 2523 1300 Balance 2523 1300 Physical Exam - Physical Exam General Appearance: WD/WN, alert, no apparent distress Respiratory: No respiratory distress, No accessory muscle use Skin: normal color, warm/dry, other (Residual limb incision clean dry and intact , sutures present, minimal drainage and slight denudation of proximal wound edge at center of incision over baker) Neuro/Psych: no motor/sensory deficits, alert, normal mood/affect, oriented x 3 ICD10 Worksheet Patient Problems: Problems Problem Status Onset Cellulitis of right foot Acute Febrile illness, acute Acute
--- NOTE | 2018-04-29 14:33 | PDOREHIP ---
Admission [facility] - Admission - 3 Day Assessment Period Admission Date/Day 1: 04/16/18 Day 2: 04/17/18 Day 3: 04/18/18 - Active Diagnoses Comorbidities and Co-existing Conditions at Admission: 58486. None of the Above - Skin Conditions Unhealed Pressure Ulcer (1 or more/Stage 1 or >)-Admission: 0. No (Late entry for 04/16/2018) # Stage 1 Pressure Ulcers-Admission: 0 # Stage 2 Pressure Ulcers-Admission: 0 # Stage 3 Pressure Ulcers-Admission: 0 # Stage 4 Pressure Ulcers-Admission: 0 # Unstageable Pressure Ulcers (Non-remove Dress)-Admission: 0 # Unstageable Pressure Ulcers (Slough/Eschar)-Admission: 0 # Unstageable Pressure Ulcers (Deep Tissue Injury)-Admission: 0 Discharge [facility] - Discharge - 3 Day Assessment Period 2 Days Prior to Anticipated Discharge Date: 04/28/18 1 Day Prior to Anticipated Discharge Date: 04/29/18 Anticipated Discharge Date: 04/30/18
--- NOTE | 2018-04-29 14:33 | PDOREHIP ---
Admission [facility] - Admission - 3 Day Assessment Period Admission Date/Day 1: 04/16/18 Day 2: 04/17/18 Day 3: 04/18/18 - Active Diagnoses Comorbidities and Co-existing Conditions at Admission: 91080. None of the Above Discharge [facility] - Discharge - 3 Day Assessment Period 2 Days Prior to Anticipated Discharge Date: 04/28/18 1 Day Prior to Anticipated Discharge Date: 04/29/18 Anticipated Discharge Date: 04/30/18 - Discharge Skin Conditions Unhealed Pressure Ulcer (1 or more/Stage 1 or >)-Discharge: 0. No # Stage 1 Pressure Ulcers-Discharge: 0 # Stage 2 Pressure Ulcers-Discharge: 0 # of These Stage 2 Pressure Ulcers Present on Admission: 0 # Stage 3 Pressure Ulcers-Discharge: 0 # of These Stage 3 Pressure Ulcers Present on Admission: 0 # Stage 4 Pressure Ulcers-Discharge: 0 # of These Stage 4 Pressure Ulcers Present on Admission: 0 # Unstageable Pressure Ulcers (Non-remove Dress)-Discharge: 0 # These Unstageable Pressure Ulcers (NRD)-Present on Admit: 0 # Unstageable Pressure Ulcers (Slough/Eschar)-Discharge: 0 # These Unstageable Pressure Ulcers(Slough) Present on Admit: 0 # Unstageable Pressure Ulcers (Deep Tissue Injury)-Discharge: 0 # These Unstageable Pressure Ulcers (DTI) Present on Admit: 0
[2018-04-29] MEDS: MELATONIN 3 MG TAB PO SCH (21:47)
[2018-04-30] MEDS: SENNOSIDES/DOCUSATE SODIUM TAB PO SCH (08:20)
[2018-04-30] MEDS: ATORVASTATIN CALCIUM 10 MG TAB PO SCH (08:22)
[2018-04-30] MEDS: ACETAMINOPHEN 325 MG TAB PO PRN (08:22)
[2018-04-30 09:40] VITALS: BP 117/75
--- NOTE | 2018-04-30 16:58 | GDS ---
ADMISSION DIAGNOSIS: Debility, status post right leg bbxlp-[id number] amputation. DISCHARGE DIAGNOSIS: Debility, status post right leg [id number]-dqf-mhpy amputation. OTHER DISCHARGE DIAGNOSES: 1. Cellulitis. 2. Hypertension. 3. Ascending aortic aneurysm. 4. Chronic renal insufficiency, stage 3. 5. Dyslipidemia. 6. First-degree atrioventricular block. COMPLICATIONS: There were none. CONSULTATIONS: There were none. PROCEDURES: He had an EKG. HISTORY/HOSPITAL COURSE: This patient came [facility] on 04[facility]07[facility]2018, with osteomyelitis of the right foot. He had a chronic wound for several previous months, which had worsened despite amputations x2 of the 1st metatarsal and antibiotics. 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 He was medically stabilized and appropriate for inpatient rehabilitation. He did well in inpatient rehabilitation. His initial functional independence measure was 79 on 04/18/2018, which is consistent with snf level of care. Functional independence measure improved to 97 as of 04/05/2018, which is consistent with high level of assisted living facility function. He was advanced to independent in his room on April 29, 2018, at the wheelchair level. He was able to make transfers in and out of bed and to the toilet. He was able to do a car transfer with standby assist. He was able to ambulate as far as 15 feet with contact guard assist using a front-wheeled walker. Regarding wound care, he developed erythema and tenderness at the proximal edge of his wound over his baker. He was treated with doxycycline for 7 days and signs and symptoms of cellulitis completely resolved. When the stump bindery machine tender was applied, he developed serosanguineous drainage from the middle of the wound , but there were no other complications to it. He was seen in followup by surgeon, Dr. Alanis on 04/28/2018, with no changes in his wound care plan. He had a history of hypertension. He had hypotension during his hospitalization. Chlorthalidone was resumed at the end of his hospitalization at 25 mg. He had low blood pressure after dosing with chlorthalidone. Medication was changed to losartan at 25 mg daily as this was a preferred class of antihypertensives in a patient with an aortic aneurysm. His blood pressure was persistently low and losartan was discontinued. On the day of discharge, his blood pressure is 117/75, on no antihypertensives. Imaging with chest CT on a prior admission in December of 2017, showed coronary calcifications, as well as an ascending aortic aneurysm at 5.3 cm. Appropriate antihypertensives with an ascending aortic aneurysm would be a beta jared, an KEMI inhibitor, or an ARB. He had first-degree AV block on EKG done during his rehabilitation stay to evaluate for dysrhythmia. Also seen was were PACs. Given the first-degree AV block, a beta jared was relatively contraindicated. He had postoperative anemia that improved during his rehabilitation stay with a hemoglobin of 9.2 and hematocrit 29.7. This was stable during his stay with a repeat CBC done on 04/21/2018. Regarding chronic renal insufficiency, this was stage 3. When he was on losartan, creatinine bumped from 1.6 to 1.8. Off of antihypertensives, his basic metabolic profile was rechecked on 04/28/2018, and his creatinine had returned to baseline at 1.6. CONDITION UPON DISCHARGE: Good. ACTIVITY: Ad izabella at the wheelchair level. DIET: Regular. DISCHARGE MEDICATIONS: Simvastatin 20 mg p.o. daily. ISSUES TO BE ADDRESSED AT FOLLOWUP: 1. Mulmt-whs-bynb amputation. He will follow up with surgeon, Dr. Alanis on Saturday, May 09, 2018. 2. Functional status. He will continue PT and OT at home. He can follow up with his primary care provider, Dr. Rick Garza, regarding his progress and whether to continue these therapies. 3. Ascending aortic aneurysm at 5.3 cm. He should have a 6 month followup with a repeat chest CT in July of 2018. 4. First-degree AV block and premature atrial complexes. Coronary calcification was also seen on the chest CT from December 2017. He should follow up with Cardiology should he become symptomatic. 5. History of hypertension, but normotensive on no blood pressure medications. He should be monitored periodically and first choice medication would be an KEMI inhibitor or an ARB should he become hypertensive. 6. Chronic renal insufficiency. He should have follow up with his primary care provider. /[id number]/MODL MTDD
== END 2018-04-30 12:59 | disposition home health service (06) | DRG 559 ==
LOC: BREH 12:51
PROVIDERS: ADMIT Internal Medicine; ATTEND Internal Medicine
PROC: F08Z7ZZ Vocational Activities and Functional Community or Work Reintegration Skills Treatment (ICD-10-PCS; principal; 2018-04-16)
PROC: F08Z0ZZ Bathing/Showering Techniques Treatment (ICD-10-PCS; principal; 2018-04-16)
PROC: F08Z1FZ Dressing Techniques Treatment using Assistive, Adaptive, Supportive or Protective Equipment (ICD-10-PCS; principal; 2018-04-16)
PROC: F07Z8ZZ Transfer Training Treatment (ICD-10-PCS; principal; 2018-04-16)
PROC: F07Z5FZ Bed Mobility Treatment using Assistive, Adaptive, Supportive or Protective Equipment (ICD-10-PCS; principal; 2018-04-16)
PROC: F07M3ZZ Motor Function Treatment of Musculoskeletal System - Whole Body (ICD-10-PCS; principal; 2018-04-16)
PROC: F08Z2FZ Grooming/Personal Hygiene Treatment using Assistive, Adaptive, Supportive or Protective Equipment (ICD-10-PCS; principal; 2018-04-16)
DX: Z47.81 Encounter for orthopedic aftercare following surgical amputation (principal); T81.41XA Infection following a procedure, superficial incisional surgical site, initial encounter; L03.116 Cellulitis of left lower limb; B37.7 Candidal sepsis; I12.9 Hypertensive chronic kidney disease with stage 1 through stage 4 chronic kidney disease, or unspecified chronic kidney disease; N18.3 Chronic kidney disease, stage 3 (moderate); M19.012 Primary osteoarthritis, left shoulder; M75.102 Unspecified rotator cuff tear or rupture of left shoulder, not specified as traumatic; E78.5 Hyperlipidemia, unspecified; I71.4 Abdominal aortic aneurysm, without rupture; G62.9 Polyneuropathy, unspecified; D64.9 Anemia, unspecified; I44.0 Atrioventricular block, first degree; Z96.641 Presence of right artificial hip joint; Z96.611 Presence of right artificial shoulder joint; Z96.653 Presence of artificial knee joint, bilateral
CPT/HCPCS: 97110-GO; 97110-GP; 97116-GP; 97162-GP; 97166-GO; 97530-GO; 97530-GP; 97535-GO; 97542-GP